=== PATIENT | male | born 1940 | race Caucasian/White ===

== ENCOUNTER 2018-04-07 15:00 | Inpatient (IN) | payer MEDICARE ==
[~2018-04-07] VITALS: Ht 170.2 cm; Wt 87.8 kg
[2018-04-07] MEDS ORDERED: ACETAMINOPHEN 325 MG TABLET PO PRN (16:00)
[2018-04-07] MEDS ORDERED: MAG HYDROX/AL HYDROX/SIMETH 30 ML ORAL.SUSP PO PRN (16:00)
[2018-04-07] MEDS ORDERED: MAGNESIUM HYDROXIDE 2,400 MG/30 ML ORAL.SUSP. PO PRN (16:00)
[2018-04-07] MEDS ORDERED: METHYL SALICYLATE/MENTHOL TOPICAL OINTMENT 29GM TUBE. TP PRN (16:00)
[2018-04-07 16:04] LABS: BILIRUBIN,URINE NEG (NEG); CLARITY,URINE CLEAR; COLOR,URINE YELLOW; GLUCOSE,URINE 100 mg/dL (NEG)
[2018-04-07 16:05] LABS: BACTERIA,URINE 0 /HPF (0-FEW); NITRITE,URINE NEG (NEG); SQUAMOUS EPITHELIAL CELL,UR OCC /LPF; UROBILINOGEN,URINE 0.2 mg/dL (0.2 mg/dL); WBC,URINE RARE /HPF (0-4)
[2018-04-07 16:10] VITALS: BP 162/86
[2018-04-07 16:17] VITALS: BP 153/96
[2018-04-07] MEDS ORDERED: BUSP5TAB PO (17:01)
[2018-04-07] MEDS ORDERED: AMIO200T2 PO (17:01)
[2018-04-07] MEDS ORDERED: ATOR20TA58 PO (17:01)
[2018-04-07] MEDS ORDERED: WARF-31 PO (17:01)
[2018-04-07] MEDS ORDERED: INSU100I13 SQ (17:01)
[2018-04-07] MEDS ORDERED: ASPI-630 PO (17:01)
[2018-04-07] MEDS ORDERED: CARV25TA2 PO (17:01)
[2018-04-07] MEDS ORDERED: GLIM4TAB2 PO (17:01)
[2018-04-07] MEDS ORDERED: OMEG-167 PO (17:01)
[2018-04-07] MEDS ORDERED: MULT-658 PO (17:01)
[2018-04-07] MEDS: CARVEDILOL 12.5 MG TABLET PO SCH (17:56)
--- NOTE | 2018-04-07 20:10 | HP ---
ADMIT DATE: 04/07/2018 PSYCHIATRIC ADMISSION HISTORY/EVALUATION This note covers elements not covered in my initial note 04/07/2018. IDENTIFYING DATA: The patient is a 77-year-old male referred to us from the Emergency Room at [facility] where he presented with his family late last night on account of increased confusion, combative behavior, threatening family attempting to jump from the car on two different occasions when the car was moving. He has been getting increasingly confused consequent to his dementia and family have attempted to manage him at home until they were unable to and brought him to the ER. He was psychotic, agitated in the ER through a ____ staff members, received Haldol IV in the ER, was totally unmanageable. CT head shows microvascular changes and ventriculomegaly. He was psychotic, unmanageable, deemed dangerous, referred for inpatient psychiatric stabilization. I talked to the nursing staff late at night and again during the day consequent to his agitation when we added Zyprexa p.r.n. 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 I have seven children. 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 He has been getting increasingly confused, combative at home, threatening his , delusional. He has had sleep and appetite changes. No clear history of bipolar disorder, suicidal or homicidal ideation other than as noted above. PAST PSYCHIATRIC HISTORY: As above. MEDICAL HISTORY: Hypertension, diabetes mellitus, hyperlipidemia, status post GA, atrial fibrillation, pacemaker in place, history of CABG, Accu-Cheks a.c. and at bedtime. ALLERGIES: PENICILLIN, DOXYCYCLINE. CODE STATUS: Full code. Diet is regular. Ambulates in wheelchair. UA was negative in the ER. CURRENT PSYCHOTROPICS: BuSpar 5 mg twice a day. FAMILY HISTORY: Noncontributory. SOCIAL HISTORY: Lives at home with his and apparently the daughter helps out as well. No physical, sexual or elder abuse history is noted. Not known to be a perpetrator. MENTAL STATUS EXAMINATION: The patient was seen individually evening of 04/07/2018. He is in his wheelchair wheeling himself up and down, bent forward, oblivious of his surroundings, restless, anxious, just not able to sit still at all. Insight, judgment, recent and remote memory, attention, concentration, fund of knowledge poor, consistent with his diagnosis. He tended to confabulate at times. ASSETS: Supportive family. Reaction to hospitalization, the patient oblivious of this. 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 Rest as above. PLAN: Admit to Geropsychiatry Unit at [facility]. I will see the patient daily individually from a psychiatric standpoint, medical followup per Dr. Colón/Dr. Paris. Start Zyprexa 2.5 mg q. 2 hours p.r.n. psychosis, agitation, max 10 mg in 24 hours. Continue BuSpar 5 mg twice a day, start Zoloft 25 mg a day for his mood and anxiety symptoms. Estimated length of stay 10-12 days. He will need fpc placement at discharge. HERIBERTO TIMMONS MD DR: BRY/kitty JOB#: [id number] / [id number]
[2018-04-07] MEDS: busPIRone 5 MG TABLET. PO SCH (20:42)
[2018-04-07] MEDS ORDERED: ATORVASTATIN CALCIUM 20 MG TABLET PO SCH (21:00)
[2018-04-08 06:06] VITALS: BP 119/66
[2018-04-08 07:46] LABS: BASO % 0 % (0-3); EOS # 0.1 x10^3/uL (0.0-0.7); EOS % 1 % (0-3); HEMATOCRIT 47.9 % (39.0-53.0); HEMOGLOBIN 16.1 g/dL (13.0-17.5); LYMPH # 1.1 x10^3/uL (1.0-4.8); LYMPH % 10 % (24-48); MEAN CORPUSCULAR HEMOGLOBIN 28 pg (25-35); MEAN CORPUSCULAR HGB CONC 34 g/dL (31-37); MEAN CORPUSCULAR VOLUME 84 fL (79-100); MONO # 1.1 x10^3/uL (0.0-1.1); MONO % 10 % (0-9); NEUT # 8.7 x10^3uL (1.8-7.7); NEUT % 79 % (31-73); PLATELET COUNT 256 x10^3/uL (140-400); RED BLOOD COUNT 5.69 x10^6/uL (4.30-5.70); RED CELL DISTRIBUTION WIDTH 14.1 % (11.5-14.5); WHITE BLOOD COUNT 11.1 x10^3/uL (4.0-11.0)
[2018-04-08] MEDS: CARVEDILOL 12.5 MG TABLET PO SCH ×2 (08:00→17:00)
[2018-04-08 08:24] LABS: ALBUMIN 3.5 g/dL (3.4-5.0); ALBUMIN/GLOBULIN RATIO 0.9 (1.0-1.7); CALCIUM 9.6 mg/dL (8.5-10.1); CREATININE 1.7 mg/dL (0.7-1.3); GFR 39.1; POTASSIUM 4.2 mmol/L (3.5-5.1); TOTAL BILIRUBIN 1.9 mg/dL (0.2-1.0); TOTAL PROTEIN 7.5 g/dL (6.4-8.2)
[2018-04-08] MEDS ORDERED: AMIODARONE HCL 200 MG TABLET PO SCH (09:00)
[2018-04-08] MEDS: OMEGA-3 FATTY ACIDS/FISH OIL 1,000 MG CAPSULE. PO SCH ×3 (09:00→21:06)
[2018-04-08] MEDS: MULTIVITAMIN I-VITE TABLET. PO SCH (09:00)
[2018-04-08] MEDS: ASPIRIN 81 MG TAB.CHEW PO SCH (10:25)
[2018-04-08] MEDS: GLIMEPIRIDE 2 MG TABLET PO SCH (10:27)
[2018-04-08] MEDS: busPIRone 5 MG TABLET. PO SCH ×2 (10:27→21:06)
[2018-04-08] MEDS: SERTRALINE 25 MG TABLET. PO SCH (10:28)
[2018-04-08] MEDS: INSULIN GLARGINE 300 UNITS/3 ML INSULN.PEN. SQ SCH ×2 (10:30→21:11)
[2018-04-08 11:23] LABS: THYROID STIM HORMONE (TSH) 3.07 uIU/mL (0.358-3.740)
[2018-04-08 13:09] LABS: T3 TOTAL 91 ng/dL (71-180); THYROXINE 9.9 ug/dL (4.5-12.0)
[2018-04-08] MEDS ORDERED: WARFARIN SODIUM 2.5 MG PO SCH (16:00)
[2018-04-08] MEDS ORDERED: WARFARIN 2.5 MG TABLET. PO ONE (16:00)
[2018-04-08 16:07] LABS: HEMOGLOBIN A1C 7.7 % (4.8-5.6)
[2018-04-08 16:33] VITALS: BP 100/55
[2018-04-08] MEDS: QUEtiapine 25 MG TABLET. PO SCH (21:08)
--- NOTE | 2018-04-08 22:40 | PDOC ---
Exam Note: Mark Note: Late entry for date of service April 07, 2018. Please also refer to the separate dictated note~for this date of service dictated separately.~Patient seen individually. Discussed the patient with Nursing staff reviewed the chart.~ Reviewed interim history and current functioning. Reviewed vital signs,~Labs/ Radiology~and current medications noted below. Continue current treatment with the changes noted in the dictated addendum note Assessment: Vital Signs: VS - Last 72 Hours, by Label Date Time Temp Pulse Resp B/P (MAP) Pulse Ox O2 Delivery O2 Flow Rate FiO2 04/08/18 16:33 97.1 78 18 100/55 (70) 95 04/08/18 10:28 81 119/66 04/08/18 06:06 97.4 81 14 119/66 (83) 93 04/07/18 17:56 71 153/96 04/07/18 16:17 97.4 71 24 153/96 (115) 96 04/07/18 16:10 97.8 71 20 162/86 (111) 95 Vital Signs Date Time Temp Pulse Resp B/P (MAP) Pulse Ox O2 Delivery O2 Flow Rate FiO2 04/08/18 16:33 97.1 78 18 100/55 (70) 95 I&O Intake and Output 04/08/18 07:00 Intake Total 270 ml Balance 270 ml Intake Oral 270 ml # Voids 4 Labs: Laboratory Tests Test 04/08/18 07:19 04/08/18 07:24 04/08/18 11:54 04/08/18 17:20 Glucose (Fingerstick) 227 mg/dL (70-99) H 252 mg/dL (70-99) H 202 mg/dL (70-99) H White Blood Count 11.1 x10^3/uL (4.0-11.0) H Red Blood Count 5.69 x10^6/uL (4.30-5.70) Hemoglobin 16.1 g/dL (13.0-17.5) Hematocrit 47.9 % (39.0-53.0) Mean Corpuscular Volume 84 fL (79-100) Mean Corpuscular Hemoglobin 28 pg (25-35) Mean Corpuscular Hemoglobin Concent 34 g/dL (31-37) Red Cell Distribution Width 14.1 % (11.5-14.5) Platelet Count 256 x10^3/uL (140-400) Neutrophils (%) (Auto) 79 % (31-73) H Lymphocytes (%) (Auto) 10 % (24-48) L Monocytes (%) (Auto) 10 % (0-9) H Eosinophils (%) (Auto) 1 % (0-3) Basophils (%) (Auto) 0 % (0-3) Neutrophils # (Auto) 8.7 x10^3uL (1.8-7.7) H Lymphocytes # (Auto) 1.1 x10^3/uL (1.0-4.8) Monocytes # (Auto) 1.1 x10^3/uL (0.0-1.1) Eosinophils # (Auto) 0.1 x10^3/uL (0.0-0.7) Basophils # (Auto) 0.0 x10^3/uL (0.0-0.2) Prothrombin Time 23.0 SEC (9.4-11.4) H Prothrombin Time INR 2.3 (0.9-1.1) H Sodium Level 134 mmol/L (136-145) L Potassium Level 4.2 mmol/L (3.5-5.1) Chloride Level 97 mmol/L (98-107) L Carbon Dioxide Level 27 mmol/L (21-32) Anion Gap 10 (6-14) Blood Urea Nitrogen 23 mg/dL (8-26) Creatinine 1.7 mg/dL (0.7-1.3) H Estimated GFR (Cockcroft-Gault) 39.1 BUN/Creatinine Ratio 14 (6-20) Glucose Level 246 mg/dL (70-99) H Hemoglobin A1c 7.7 % (4.8-5.6) H Calcium Level 9.6 mg/dL (8.5-10.1) Magnesium Level 2.0 mg/dL (1.8-2.4) Iron Level 66 ug/dL (65-175) Total Iron Binding Capacity 299 ug/dL (250-450) Iron Saturation 22 % (15-34) Total Bilirubin 1.9 mg/dL (0.2-1.0) H Aspartate Amino Transferase (AST) 143 U/L (15-37) H Alanine Aminotransferase (ALT) 83 U/L (16-63) H Alkaline Phosphatase 143 U/L (46-116) H Total Protein 7.5 g/dL (6.4-8.2) Albumin 3.5 g/dL (3.4-5.0) Albumin/Globulin Ratio 0.9 (1.0-1.7) L Triglycerides Level 84 mg/dL (0-150) Cholesterol Level 115 mg/dL (0-200) LDL Cholesterol, Calculated 43 mg/dL (0-100) VLDL Cholesterol, Calculated 16 mg/dL (0-40) Non-HDL Cholesterol Calculated 59 mg/dL (0-129) HDL Cholesterol 56 mg/dL (40-60) Cholesterol/HDL Ratio 2.0 Thyroid Stimulating Hormone (TSH) 3.070 uIU/mL (0.358-3.740) Thyroxine (T4) 9.9 ug/dL (4.5-12.0) Total Triiodothyronine (TT3) 91 ng/dL (71-180) Rapid Plasma Reagin Pending Test 04/08/18 19:58 Glucose (Fingerstick) 178 mg/dL (70-99) H Current Medications: Meds: Current Medications Acetaminophen (Tylenol) 650 mg PRN Q6HRS PRN PO PAIN / TEMP; Start 04/07/18 at 16:00; Stop 04/08/18 at 19:14; Status DC Multi-Ingredient Ointment (Analgesic [place]) 1 markell PRN QID PRN TP MUSCLE PAIN; Start 04/07/18 at 16:00 Al Hydroxide/Mg Hydroxide (Mylanta Plus Xs) 15 ml PRN AFTMEALHC PRN PO DYSPEPSIA; Start 04/07/18 at 16:00 Magnesium Hydroxide (Milk Of Magnesia) 2,400 mg PRN QHS PRN PO CONSTIPATION; Start 04/07/18 at 16:00 Atorvastatin Calcium (Lipitor) 20 mg QHS PO Last administered on 04/07/18at 20: 42; Start 04/07/18 at 21:00; Stop 04/08/18 at 19:14; Status DC Insulin Glargine (Lantus) 10 units DAILY SQ Last administered on 04/08/18at 21: 11; Start 04/08/18 at 09:00 Amiodarone HCl (Cordarone) 200 mg DAILY PO Last administered on 04/08/18at 10:28 ; Start 04/08/18 at 09:00; Stop 04/08/18 at 19:14; Status DC Aspirin (Children'S Aspirin) 81 mg DAILYWBKFT PO Last administered on 10:25; Start 04/08/18 at 08:00 Buspirone HCl (Buspar) 5 mg BID PO Last administered on 04/08/18 21:06; Start 04/07/18 at 21:00 Carvedilol (Coreg) 25 mg BIDWMEALS PO Last administered on 04/07/18at 17:56; Start 04/07/18 at 17:00 Glimepiride (Amaryl) 4 mg DAILY PO Last administered on 04/08/18 10:27; Start 04/08/18 at 09:00 Multivitamins/ Minerals (I-Julianne) 1 tab DAILY PO ; Start 04/08/18 at 09:00 Fish Oil (Fish Oil) 1,000 mg QHS PO Last administered on 04/08/18 21:06; Start 04/08/18 at 09:00 Non-Formulary Medication (Warfarin Sodium ) 2.5 mg DAILY16 PO ; Start 04/08/18 at 16:00; Stop 04/08/18 at 16:00; Status DC Warfarin Sodium (Coumadin Per Pharmacy) 1 each DAILY MC Last administered on 12:23; Start 04/07/18 at 17:15 Olanzapine (ZyPREXA ZYDIS) 2.5 mg PRN Q2HR PRN PO PSYCHOSIS Last administered on 04/08/18 11:39; Start 04/07/18 at 19:30 Sertraline HCl (Zoloft) 25 mg DAILY PO Last administered on 04/08/18at 10:28; Start 04/08/18 at 09:00 Warfarin Sodium (Coumadin - No Dose Today) 1 each 1X WARF ONCE MC ; Start 04/07 at 16:00; Stop 04/07/18 at 20:41; Status DC Warfarin Sodium (Coumadin) 2.5 mg 1X WARF ONCE PO Last administered on at 17:14; Start 04/08/18 at 16:00; Stop 04/08/18 at 16:01; Status DC Quetiapine Fumarate (SEROquel) 12.5 mg 0900,1300,1700 PO Last administered on at 21:08; Start 04/08/18 at 19:30 Active Scripts Active Reported Lantus Solostar (Insulin Glargine,Hum.rec.anlog) 100 Unit/1 Ml Insuln.pen 10 Unit SQ DAILY Buspirone Hcl 5 Mg Tablet 5 Mg PO BID Fish Oil 1,200 mg Softgel ([place]-3S/Dha/Epa/Fish Oil) 1 Each Capsule.dr 1 Each PO QHS Warfarin Sodium 5 Mg Tablet 2.5 Mg PO DAILY16 Atorvastatin Calcium 20 Mg Tablet 20 Mg PO QHS Amiodarone Hcl 200 Mg Tablet 200 Mg PO DAILY Carvedilol 25 Mg Tablet 25 Mg PO BID Centrum Silver Tablet (Multivits-Min/Fa/Lycopene/Lut) 1 Each Tablet 1 Each PO DAILY PRN Aspirin 81 Mg Tab.chew 81 Mg PO DAILY Glimepiride 4 Mg Tablet 4 Mg PO DAILY I have reviewed the current psychotropics carefully including drug interactions. Risk benefit ratio favors no change other than as noted in my dictated progress note. HERIBERTO TIMMONS MD April 08, 2018 22:40
--- NOTE | 2018-04-08 23:11 | PDOC ---
Exam Note: Mark Note: Please also refer to the separate dictated note~for this date of service dictated separately.~Patient seen individually. Discussed the patient with Nursing staff reviewed the chart.~Reviewed interim history and current functioning. Reviewed vital signs,~Labs/ Radiology~and current medications noted below. Continue current treatment with the changes noted in the dictated addendum note Assessment: Vital Signs: Vital Signs Date Time Temp Pulse Resp B/P (MAP) Pulse Ox O2 Delivery O2 Flow Rate FiO2 04/08/18 16:33 97.1 78 18 100/55 (70) 95 I&O Intake and Output 04/08/18 07:00 Intake Total 270 ml Balance 270 ml Intake Oral 270 ml # Voids 4 Labs: Laboratory Tests Test 04/08/18 07:19 04/08/18 07:24 04/08/18 11:54 04/08/18 17:20 Glucose (Fingerstick) 227 mg/dL (70-99) H 252 mg/dL (70-99) H 202 mg/dL (70-99) H White Blood Count 11.1 x10^3/uL (4.0-11.0) H Red Blood Count 5.69 x10^6/uL (4.30-5.70) Hemoglobin 16.1 g/dL (13.0-17.5) Hematocrit 47.9 % (39.0-53.0) Mean Corpuscular Volume 84 fL (79-100) Mean Corpuscular Hemoglobin 28 pg (25-35) Mean Corpuscular Hemoglobin Concent 34 g/dL (31-37) Red Cell Distribution Width 14.1 % (11.5-14.5) Platelet Count 256 x10^3/uL (140-400) Neutrophils (%) (Auto) 79 % (31-73) H Lymphocytes (%) (Auto) 10 % (24-48) L Monocytes (%) (Auto) 10 % (0-9) H Eosinophils (%) (Auto) 1 % (0-3) Basophils (%) (Auto) 0 % (0-3) Neutrophils # (Auto) 8.7 x10^3uL (1.8-7.7) H Lymphocytes # (Auto) 1.1 x10^3/uL (1.0-4.8) Monocytes # (Auto) 1.1 x10^3/uL (0.0-1.1) Eosinophils # (Auto) 0.1 x10^3/uL (0.0-0.7) Basophils # (Auto) 0.0 x10^3/uL (0.0-0.2) Prothrombin Time 23.0 SEC (9.4-11.4) H Prothrombin Time INR 2.3 (0.9-1.1) H Sodium Level 134 mmol/L (136-145) L Potassium Level 4.2 mmol/L (3.5-5.1) Chloride Level 97 mmol/L (98-107) L Carbon Dioxide Level 27 mmol/L (21-32) Anion Gap 10 (6-14) Blood Urea Nitrogen 23 mg/dL (8-26) Creatinine 1.7 mg/dL (0.7-1.3) H Estimated GFR (Cockcroft-Gault) 39.1 BUN/Creatinine Ratio 14 (6-20) Glucose Level 246 mg/dL (70-99) H Hemoglobin A1c 7.7 % (4.8-5.6) H Calcium Level 9.6 mg/dL (8.5-10.1) Magnesium Level 2.0 mg/dL (1.8-2.4) Iron Level 66 ug/dL (65-175) Total Iron Binding Capacity 299 ug/dL (250-450) Iron Saturation 22 % (15-34) Total Bilirubin 1.9 mg/dL (0.2-1.0) H Aspartate Amino Transferase (AST) 143 U/L (15-37) H Alanine Aminotransferase (ALT) 83 U/L (16-63) H Alkaline Phosphatase 143 U/L (46-116) H Total Protein 7.5 g/dL (6.4-8.2) Albumin 3.5 g/dL (3.4-5.0) Albumin/Globulin Ratio 0.9 (1.0-1.7) L Triglycerides Level 84 mg/dL (0-150) Cholesterol Level 115 mg/dL (0-200) LDL Cholesterol, Calculated 43 mg/dL (0-100) VLDL Cholesterol, Calculated 16 mg/dL (0-40) Non-HDL Cholesterol Calculated 59 mg/dL (0-129) HDL Cholesterol 56 mg/dL (40-60) Cholesterol/HDL Ratio 2.0 Thyroid Stimulating Hormone (TSH) 3.070 uIU/mL (0.358-3.740) Thyroxine (T4) 9.9 ug/dL (4.5-12.0) Total Triiodothyronine (TT3) 91 ng/dL (71-180) Rapid Plasma Reagin Pending Test 04/08/18 19:58 Glucose (Fingerstick) 178 mg/dL (70-99) H Current Medications: Meds: Current Medications Acetaminophen (Tylenol) 650 mg PRN Q6HRS PRN PO PAIN / TEMP; Start 04/07/18 at 16:00; Stop 04/08/18 at 19:14; Status DC Multi-Ingredient Ointment (Analgesic [place]) 1 markell PRN QID PRN TP MUSCLE PAIN; Start 04/07/18 at 16:00 Al Hydroxide/Mg Hydroxide (Mylanta Plus Xs) 15 ml PRN AFTMEALHC PRN PO DYSPEPSIA; Start 04/07/18 at 16:00 Magnesium Hydroxide (Milk Of Magnesia) 2,400 mg PRN QHS PRN PO CONSTIPATION; Start 04/07/18 at 16:00 Atorvastatin Calcium (Lipitor) 20 mg QHS PO Last administered on 04/07/18at 20: 42; Start 04/07/18 at 21:00; Stop 04/08/18 at 19:14; Status DC Insulin Glargine (Lantus) 10 units DAILY SQ Last administered on 04/08/18at 21: 11; Start 04/08/18 at 09:00 Amiodarone HCl (Cordarone) 200 mg DAILY PO Last administered on 04/08/18at 10:28 ; Start 04/08/18 at 09:00; Stop 04/08/18 at 19:14; Status DC Aspirin (Children'S Aspirin) 81 mg DAILYWBKFT PO Last administered on at 10:25; Start 04/08/18 at 08:00 Buspirone HCl (Buspar) 5 mg BID PO Last administered on 04/08/18at 21:06; Start 04/07/18 at 21:00 Carvedilol (Coreg) 25 mg BIDWMEALS PO Last administered on 04/07/18at 17:56; Start 04/07/18 at 17:00 Glimepiride (Amaryl) 4 mg DAILY PO Last administered on 04/08/18at 10:27; Start 04/08/18 at 09:00 Multivitamins/ Minerals (I-Julianne) 1 tab DAILY PO ; Start 04/08/18 at 09:00 Fish Oil (Fish Oil) 1,000 mg QHS PO Last administered on 04/08/18at 21:06; Start 04/08/18 at 09:00 Non-Formulary Medication (Warfarin Sodium ) 2.5 mg DAILY16 PO ; Start 04/08/18 at 16:00; Stop 04/08/18 at 16:00; Status DC Warfarin Sodium (Coumadin Per Pharmacy) 1 each DAILY MC Last administered on at 12:23; Start 04/07/18 at 17:15 Olanzapine (ZyPREXA ZYDIS) 2.5 mg PRN Q2HR PRN PO PSYCHOSIS Last administered on 04/08/18at 11:39; Start 04/07/18 at 19:30 Sertraline HCl (Zoloft) 25 mg DAILY PO Last administered on 04/08/18 10:28; Start 04/08/18 at 09:00 Warfarin Sodium (Coumadin - No Dose Today) 1 each 1X WARF ONCE MC ; Start 04/07 at 16:00; Stop 04/07/18 at 20:41; Status DC Warfarin Sodium (Coumadin) 2.5 mg 1X WARF ONCE PO Last administered on at 17:14; Start 04/08/18 at 16:00; Stop 04/08/18 at 16:01; Status DC Quetiapine Fumarate (SEROquel) 12.5 mg 0900,1300,1700 PO Last administered on at 21:08; Start 04/08/18 at 19:30 Active Scripts Active Reported Lantus Solostar (Insulin Glargine,Hum.rec.anlog) 100 Unit/1 Ml Insuln.pen 10 Unit SQ DAILY Buspirone Hcl 5 Mg Tablet 5 Mg PO BID Fish Oil 1,200 mg Softgel ([place]-3S/Dha/Epa/Fish Oil) 1 Each Capsule. 1 Each PO QHS Warfarin Sodium 5 Mg Tablet 2.5 Mg PO DAILY16 Atorvastatin Calcium 20 Mg Tablet 20 Mg PO QHS Amiodarone Hcl 200 Mg Tablet 200 Mg PO DAILY Carvedilol 25 Mg Tablet 25 Mg PO BID Centrum Silver Tablet (Multivits-Min/Fa/Lycopene/Lut) 1 Each Tablet 1 Each PO DAILY PRN Aspirin 81 Mg Tab.chew 81 Mg PO DAILY Glimepiride 4 Mg Tablet 4 Mg PO DAILY I have reviewed the current psychotropics carefully including drug interactions. Risk benefit ratio favors no change other than as noted in my dictated progress note. Diagnosis: Problems: (1) Anxiety disorder (2) Dementia in Alzheimer's disease with delusions (3) Dementia in Alzheimer's disease with depression (4) Dementia, vascular, with delusions (5) Dementia, vascular, with depression (6) Impulse control disorder HERIBERTO TIMMONS MD April 08, 2018 23:11
[2018-04-09 05:58] VITALS: BP 131/71
[2018-04-09] MEDS: ASPIRIN 81 MG TAB.CHEW PO SCH (08:00)
[2018-04-09] MEDS: CARVEDILOL 12.5 MG TABLET PO SCH (08:00)
[2018-04-09] MEDS: SERTRALINE 25 MG TABLET. PO SCH (09:00)
[2018-04-09] MEDS: QUEtiapine 25 MG TABLET. PO SCH ×3 (09:00→17:00)
[2018-04-09] MEDS: busPIRone 5 MG TABLET. PO SCH ×2 (09:00→20:59)
[2018-04-09] MEDS: MULTIVITAMIN I-VITE TABLET. PO SCH (09:00)
[2018-04-09] MEDS: GLIMEPIRIDE 2 MG TABLET PO SCH (09:00)
[2018-04-09 15:37] VITALS: BP 115/65
[2018-04-09] MEDS ORDERED: WARFARIN 2 MG TABLET. PO ONE (16:00)
[2018-04-09] MEDS ORDERED: BISACODYL 10 MG SUPP.RECT PR PRN (18:00)
--- NOTE | 2018-04-09 18:58 | CONS ---
DATE OF CONSULTATION: 04/08/2018 REASON FOR CONSULTATION: Medical management. HISTORY OF PRESENT ILLNESS: The patient is a 77-year-old male patient who apparently was referred from [facility] Emergency Room with increased confusion, combative, threatening , attempted to jump from the car twice. All this on a background of impulse control disorder and was admitted for inpatient psychiatric stabilization. PAST MEDICAL HISTORY: Significant for dementia, hypertension, diabetes mellitus, hyperlipidemia, myocardial infarction, atrial fibrillation, pacemaker, and coronary artery bypass graft. PAST SURGICAL HISTORY: Significant for revascularization of the right lower extremity. He has also coronary artery bypass graft surgery and permanent pacemaker placement. ALLERGIES: He is allergic to PENICILLIN and DOXYCYCLINE. CODE STATUS: Full code. MEDICATIONS: He is currently on following medications: He is currently on warfarin 2.5 mg daily, amiodarone 200 mg once a day, atorvastatin calcium 20 mg at bedtime, omega-3 fatty acid 1200 mg at bedtime, carvedilol 25 mg b.i.d., aspirin 81 mg once a day, buspirone 5 mg p.o. b.i.d., Lantus 10 units at bedtime, glimepiride 4 mg p.o. daily, and multivitamin 1 tablet once a day. REVIEW OF SYSTEMS: Unobtainable. PHYSICAL EXAMINATION: GENERAL: On examining him, he was lying flat on the floor, in no apparent respiratory distress, somewhat pale, but no jaundice, cyanosis, or thyromegaly. No jugular venous distension. No limb edema. VITAL SIGNS: His heart rate was 78, blood pressure was 100/55, temperature was 97.1, respiratory rate was 18, and oxygen saturation was 95%. HEAD, EYES, EARS, NOSE, AND THROAT: Normocephalic, atraumatic. NECK: Supple. HEART: Showed normal first and second sounds. No gallop, rub or murmur. CHEST: Clear to auscultation. No crepitation or rhonchi. ABDOMEN: Distended, soft, and nontender. No guarding or rigidity. No organomegaly. Hernial orifice intact. Bowel sounds normal. NEUROLOGIC: He was very confused, agitated, and unable even to turn to get in his back. It took about three people to get him up from the floor. LABORATORY DATA: Showed a prothrombin time 23. INR of 2.3. His white cell count was 11,100, hemoglobin 16, hematocrit 48, MCV 84, and platelet count 256,000. His chemistry showed a serum sodium 134, potassium 4.2, chloride 97, bicarbonate 27, anion gap of 10, BUN 23, creatinine 1.7, estimated GFR was 39 mL per minute. His glucose was 246, calcium was 9.6. Total bilirubin 1.9. AST, ALT, alkaline phosphatase are elevated. Total protein 7.3, albumin 3.5. His total cholesterol with triglycerides 84, total cholesterol and 15, LDL was 43, VLDL was 16, and HDL cholesterol was 56, and the ratio was 2. His TSH was 3.07. Urinalysis was essentially unremarkable and RPR was pending. ASSESSMENT AND PLAN: In summary, this is a 77-year-old male patient who was referred from the [facility] Emergency Room with increased confusion, combativeness, threatening , attempted to jump from the car twice. All this in a background of impulse control disorder. He has multiple medical problems including hypertension, type 2 diabetes, hyperlipidemia, myocardial infarction, and atrial fibrillation. His lab work showed that he has markedly deranged liver enzymes and he was jaundiced. He is on amiodarone that might be the culprit for his deranged liver enzyme as well as I will obviously discontinue the atorvastatin. With this, his unsteady gait, I do not think anticoagulation is the right thing to do for him. I will discontinue his atenolol, atorvastatin, and also amiodarone at least for the time being at least temporarily. I will definitely stop also the Coumadin as a high risk for bleeding. MISHEL CARRILLO MD DR: MAVERICK/kitty JOB#: [id number] / [id number]
--- NOTE | 2018-04-09 20:22 | EKG ---
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
--- NOTE | 2018-04-09 20:43 | PDOC ---
Exam Note: Mark Note: Please also refer to the separate dictated note~for this date of service dictated separately.~Patient seen individually. Discussed the patient with Nursing staff reviewed the chart.~Reviewed interim history and current functioning. Reviewed vital signs,~Labs/ Radiology~and current medications noted below. Continue current treatment with the changes noted in the dictated addendum note Assessment: Vital Signs: Vital Signs Date Time Temp Pulse Resp B/P (MAP) Pulse Ox O2 Delivery O2 Flow Rate FiO2 04/09/18 15:37 97.7 77 26 115/65 (82) 96 I&O Intake and Output 04/09/18 07:00 Intake Total 120 ml Balance 120 ml Intake Oral 120 ml # Voids 2 Labs: Laboratory Tests Test 04/09/18 07:35 04/09/18 07:57 04/09/18 11:40 04/09/18 16:36 Glucose (Fingerstick) 207 mg/dL (70-99) H 217 mg/dL (70-99) H 250 mg/dL (70-99) H Prothrombin Time 27.2 SEC (9.4-11.4) H Prothrombin Time INR 2.7 (0.9-1.1) H Test 04/09/18 19:11 Glucose (Fingerstick) 275 mg/dL (70-99) H Current Medications: Meds: Current Medications Acetaminophen (Tylenol) 650 mg PRN Q6HRS PRN PO PAIN / TEMP; Start 04/07/18 at 16:00; Stop 04/08/18 at 19:14; Status DC Multi-Ingredient Ointment (Analgesic [place]) 1 markell PRN QID PRN TP MUSCLE PAIN; Start 04/07/18 at 16:00 Al Hydroxide/Mg Hydroxide (Mylanta Plus Xs) 15 ml PRN AFTMEALHC PRN PO DYSPEPSIA; Start 04/07/18 at 16:00 Magnesium Hydroxide (Milk Of Magnesia) 2,400 mg PRN QHS PRN PO CONSTIPATION; Start 04/07/18 at 16:00 Atorvastatin Calcium (Lipitor) 20 mg QHS PO Last administered on 04/07/18at 20: 42; Start 04/07/18 at 21:00; Stop 04/08/18 at 19:14; Status DC Insulin Glargine (Lantus) 10 units DAILY SQ Last administered on 5/19/18at 21: 11; Start 04/08/18 at 09:00 Amiodarone HCl (Cordarone) 200 mg DAILY PO Last administered on 04/08/18 10:28 ; Start 04/08/18 at 09:00; Stop 04/08/18 at 19:14; Status DC Aspirin (Children'S Aspirin) 81 mg DAILYWBKFT PO Last administered on 10:25; Start 04/08/18 at 08:00 Buspirone HCl (Buspar) 5 mg BID PO Last administered on 04/08/18 21:06; Start 04/07/18 at 21:00 Carvedilol (Coreg) 25 mg BIDWMEALS PO Last administered on 04/07/18 17:56; Start 04/07/18 at 17:00; Stop 04/09/18 at 18:01; Status DC Glimepiride (Amaryl) 4 mg DAILY PO Last administered on 04/08/18 10:27; Start 04/08/18 at 09:00 Multivitamins/ Minerals (I-Julianne) 1 tab DAILY PO ; Start 04/08/18 at 09:00 Fish Oil (Fish Oil) 1,000 mg QHS PO ; Start 04/08/18 at 09:00 Non-Formulary Medication (Warfarin Sodium ) 2.5 mg DAILY16 PO ; Start 04/08/18 at 16:00; Stop 04/08/18 at 16:00; Status DC Warfarin Sodium (Coumadin Per Pharmacy) 1 each DAILY MC Last administered on 13:27; Start 04/07/18 at 17:15 Olanzapine (ZyPREXA ZYDIS) 2.5 mg PRN Q2HR PRN PO PSYCHOSIS Last administered on 04/08/18 11:39; Start 04/07/18 at 19:30 Sertraline HCl (Zoloft) 25 mg DAILY PO Last administered on 04/08/18 10:28; Start 04/08/18 at 09:00 Warfarin Sodium (Coumadin - No Dose Today) 1 each 1X WARF ONCE MC ; Start 04/07 at 16:00; Stop 04/07/18 at 20:41; Status DC Warfarin Sodium (Coumadin) 2.5 mg 1X WARF ONCE PO Last administered on 5/19/ 18at 17:14; Start 04/08/18 at 16:00; Stop 04/08/18 at 16:01; Status DC Quetiapine Fumarate (SEROquel) 12.5 mg 0900,1300,1700 PO Last administered on at 21:08; Start 04/08/18 at 19:30 Warfarin Sodium (Coumadin) 2 mg 1X WARF ONCE PO ; Start 04/09/18 at 16:00; Stop 04/09/18 at 16:02; Status DC Carvedilol (Coreg) 12.5 mg BIDWMEALS PO ; Start 04/10/18 at 08:00 Bisacodyl (Dulcolax Supp) 10 mg PRN DAILY PRN [place] CONSTIPATION; Start 04/09/18 at 18:00 Active Scripts Active Reported Lantus Solostar (Insulin Glargine,Hum.rec.anlog) 100 Unit/1 Ml Insuln.pen 10 Unit SQ DAILY Buspirone Hcl 5 Mg Tablet 5 Mg PO BID Fish Oil 1,200 mg Softgel ([place]-3S/Dha/Epa/Fish Oil) 1 Each Capsule.dr 1 Each PO QHS Warfarin Sodium 5 Mg Tablet 2.5 Mg PO DAILY16 Atorvastatin Calcium 20 Mg Tablet 20 Mg PO QHS Amiodarone Hcl 200 Mg Tablet 200 Mg PO DAILY Carvedilol 25 Mg Tablet 25 Mg PO BID Centrum Silver Tablet (Multivits-Min/Fa/Lycopene/Lut) 1 Each Tablet 1 Each PO DAILY PRN Aspirin 81 Mg Tab.chew 81 Mg PO DAILY Glimepiride 4 Mg Tablet 4 Mg PO DAILY I have reviewed the current psychotropics carefully including drug interactions. Risk benefit ratio favors no change other than as noted in my dictated progress note. Diagnosis: Problems: (1) Anxiety disorder (2) Dementia in Alzheimer's disease with delusions (3) Dementia in Alzheimer's disease with depression (4) Dementia, vascular, with delusions (5) Dementia, vascular, with depression (6) Impulse control disorder HERIBERTO TIMMONS MD April 09, 2018 20:43
[2018-04-09] MEDS: OMEGA-3 FATTY ACIDS/FISH OIL 1,000 MG CAPSULE. PO SCH (20:59)
[2018-04-10 06:08] VITALS: BP 139/72
[2018-04-10 07:57] LABS: BASO # 0.1 x10^3/uL (0.0-0.2); BASO % 0 % (0-3); EOS % 0 % (0-3); HEMATOCRIT 44.5 % (39.0-53.0); HEMOGLOBIN 15.2 g/dL (13.0-17.5); LYMPH # 1.1 x10^3/uL (1.0-4.8); LYMPH % 5 % (24-48); MEAN CORPUSCULAR HEMOGLOBIN 29 pg (25-35); MEAN CORPUSCULAR HGB CONC 34 g/dL (31-37); MEAN CORPUSCULAR VOLUME 85 fL (79-100); MONO # 1.8 x10^3/uL (0.0-1.1); MONO % 8 % (0-9); NEUT # 18.6 x10^3uL (1.8-7.7); NEUT % 86 % (31-73); PLATELET COUNT 232 x10^3/uL (140-400); RED BLOOD COUNT 5.26 x10^6/uL (4.30-5.70); RED CELL DISTRIBUTION WIDTH 14.5 % (11.5-14.5); WHITE BLOOD COUNT 21.6 x10^3/uL (4.0-11.0)
[2018-04-10] MEDS ORDERED: CARVEDILOL 12.5 MG TABLET PO SCH (08:00)
[2018-04-10 08:11] LABS: ALBUMIN 2.8 g/dL (3.4-5.0); ALBUMIN/GLOBULIN RATIO 0.7 (1.0-1.7); CALCIUM 9.1 mg/dL (8.5-10.1); CREATININE 2.5 mg/dL (0.7-1.3); POTASSIUM 4.2 mmol/L (3.5-5.1); TOTAL BILIRUBIN 1.8 mg/dL (0.2-1.0); TOTAL PROTEIN 6.7 g/dL (6.4-8.2)
[2018-04-10] MEDS ORDERED: MULT-99 PO (09:02)
[2018-04-10] MEDS ORDERED: BISA10SU2 RC (09:02)
[2018-04-10] MEDS ORDERED: MAGN2400 PO (09:03)
[2018-04-10] MEDS ORDERED: MAG30ORA PO (09:03)
[2018-04-10] MEDS ORDERED: METH29OI TP (09:04)
[2018-04-10] MEDS ORDERED: OLAN5TAB5 PO (09:05)
[2018-04-10] MEDS ORDERED: SERT25TA PO (09:06)
[2018-04-10] MEDS ORDERED: IV NORMAL SALINE 1,000ML 1,000 ML IV ONE (10:00)
--- NOTE | 2018-04-10 10:01 | PN ---
DATE: 04/08/2018 PSYCHIATRIC PROGRESS NOTE This late entry 04/08/2018 covers elements not covered in my initial note of 04/08/2018. SUBJECTIVE: Met with the patient in the evening. The patient slept 3-1/2 hours, has been restless, yelling for his , cursing at staff, trying to get out of his chair. Family is requesting a Neurology consult. We will request with Dr. Marin. REVIEW OF SYSTEMS: Ambulation impaired, in wheelchair. No CV, , pulmonary, eye, ENT system symptoms on review. Reliability is poor. MENTAL STATUS EXAM: Oriented to himself. Insight, judgment, recent remote memory, attention, concentration, fund of knowledge is poor, consistent with his diagnoses mentioned in my initial note. IMPRESSION: Major neurocognitive disorder, Alzheimer, vascular with depression, delusion, behavioral disturbance. PLAN: Start Seroquel 12.5 mg at 9:00 a.m., 1:00 p.m., 5:00 p.m. I discussed with the pharmacists regarding drug interaction with Cordarone with QTC prolongation. We will check EKG for QTC baseline and then 3 days after, he started the Seroquel. Dosage of Seroquel is rather low. He should tolerate it, but we will monitor carefully. Continue rest unchanged, BuSpar, Zoloft, along with Zyprexa p.r.n. MAN Hill TIMMONS MD DR: BRY/kitty JOB#: [id number] / [id number]
[2018-04-10 10:09] LABS: BACTERIA,URINE MANY /HPF (0-FEW); BILIRUBIN,URINE NEG (NEG); CLARITY,URINE CLOUDY; COLOR,URINE AMBER; GLUCOSE,URINE 100 mg/dL (NEG); NITRITE,URINE NEG (NEG); SQUAMOUS EPITHELIAL CELL,UR FEW /LPF; UROBILINOGEN,URINE 0.2 mg/dL (0.2 mg/dL); WBC,URINE 20-40 /HPF (0-4)
[2018-04-10 10:10] LABS: GRANULAR CASTS,URINE FEW /HPF; HYALINE CASTS, URINE MANY /HPF
[2018-04-10 10:17] LABS: % BANDS 3 % (0-9); % LYMPHS 6 % (24-48); % MONOS 7 % (0-10); % SEGS 84 % (35-66); PLT ESTIMATE ADEQUATE (ADEQUATE); TOXIC GRANULATION SLIGHT
--- NOTE | 2018-04-10 10:17 | RAD ---
Single view of the chest. 04/10/2018 9:58 AM Indication: LEUKOCYTOSIS Comparison: None Findings: Low lung volumes noted. This augments the cardiomediastinal silhouette and pulmonary vasculature. Multi pacemaker/ICD device from left subclavian approach noted. Prior median sternotomy noted. No pneumothorax or definitive pleural effusion is seen. No focal infiltrate is defined. No acute osseous changes are identified. IMPRESSION: Low lung volumes without other radiographic evidence of acute cardiopulmonary process Electronically signed by: Yaron Richards MD (04/10/2018 10:14 AM) [id number]
[2018-04-10] MEDS ORDERED: MEROPENEM 500 MG in IV NORMAL SALINE 50ML 50 ML IV SCH (14:00)
--- NOTE | 2018-04-10 14:11 | PN ---
DATE: 04/09/2018 PSYCHIATRIC PROGRESS NOTE This note covers elements not covered in my initial note 04/09/2018. SUBJECTIVE: I met with the patient in the evening. The patient has been somewhat withdrawn, obtunded, bedtime meds were held last night and meds held during the day as well. Dr. Colón has stopped the Cordarone. EKG: QTc is 470 with possible anteroseptal damage and inferior infarct. We will have a Cardiology consult to address this. REVIEW OF SYSTEMS: Ambulation impaired, in wheelchair. No CV, , pulmonary, eye, ENT system symptoms on review. MENTAL STATUS EXAM: Oriented to himself. Insight, judgment, recent and remote memory, attention, concentration, fund of knowledge poor, consistent with his diagnosis. IMPRESSION: Major neurocognitive disorder, Alzheimer, vascular with delusion, depression, behavioral disturbance. LABORATORIES: Abnormal EKG. PLAN: Continue BuSpar 5 mg b.i.d., Zoloft 25 mg a day, Seroquel 12.5 mg 3 times a day will be stopped for now. Cardiology consult is noted. Continue Zyprexa p.r.n. Swallow study is being done as well. Labs to be checked in the morning. He is on thickened liquids. HERIBERTO TIMMONS MD DR: BRY/kitty JOB#: [id number] / [id number]
[2018-04-10] MEDS ORDERED: WARFARIN 1 MG TABLET. PO ONE (16:00)
--- NOTE | 2018-04-11 18:53 | PDOC ---
Exam Note: Mark Note: Please also refer to the separate dictated note~for this date of service dictated separately.~Patient seen individually. Discussed the patient with Nursing staff reviewed the chart.~Reviewed interim history and current functioning. Reviewed vital signs,~Labs/ Radiology~and current medications noted below. Continue current treatment with the changes noted in the dictated addendum note. This is a late entry for 04/10/18 Assessment: Vital Signs: Vital Signs Date Time Temp Pulse Resp B/P (MAP) Pulse Ox O2 Delivery O2 Flow Rate FiO2 04/10/18 06:08 98.6 84 22 139/72 (94) 95 I&O Intake and Output 04/11/18 07:00 Intake Total 360 ml Balance 360 ml Intake Oral 360 ml Current Medications: Meds: Current Medications Acetaminophen (Tylenol) 650 mg PRN Q6HRS PRN PO PAIN / TEMP; Start 04/07/18 at 16:00; Stop 04/08/18 at 19:14; Status DC Multi-Ingredient Ointment (Analgesic [place]) 1 markell PRN QID PRN TP MUSCLE PAIN; Start 04/07/18 at 16:00; Stop 04/10/18 at 10:12; Status DC Al Hydroxide/Mg Hydroxide (Mylanta Plus Xs) 15 ml PRN AFTMEALHC PRN PO DYSPEPSIA; Start 04/07/18 at 16:00; Stop 04/10/18 at 10:12; Status DC Magnesium Hydroxide (Milk Of Magnesia) 2,400 mg PRN QHS PRN PO CONSTIPATION; Start 04/07/18 at 16:00; Stop 04/10/18 at 10:12; Status DC Atorvastatin Calcium (Lipitor) 20 mg QHS PO Last administered on 04/07/18at 20: 42; Start 04/07/18 at 21:00; Stop 04/08/18 at 19:14; Status DC Insulin Glargine (Lantus) 10 units DAILY SQ Last administered on 04/08/18at 21: 11; Start 04/08/18 at 09:00; Stop 04/10/18 at 10:12; Status DC Amiodarone HCl (Cordarone) 200 mg DAILY PO Last administered on 04/08/18at 10:28 ; Start 04/08/18 at 09:00; Stop 04/08/18 at 19:14; Status DC Aspirin (Children'S Aspirin) 81 mg DAILYWBKFT PO Last administered on at 10:25; Start 04/08/18 at 08:00; Stop 04/10/18 at 10:12; Status DC Buspirone HCl (Buspar) 5 mg BID PO Last administered on 04/09/18at 20:59; Start 04/07/18 at 21:00; Stop 04/10/18 at 10:12; Status DC Carvedilol (Coreg) 25 mg BIDWMEALS PO Last administered on 04/07/18at 17:56; Start 04/07/18 at 17:00; Stop 04/09/18 at 18:01; Status DC Glimepiride (Amaryl) 4 mg DAILY PO Last administered on 04/08/18at 10:27; Start 04/08/18 at 09:00; Stop 04/10/18 at 10:12; Status DC Multivitamins/ Minerals (I-Julianne) 1 tab DAILY PO ; Start 04/08/18 at 09:00; Stop 04/10/18 at 10:12; Status DC Fish Oil (Fish Oil) 1,000 mg QHS PO ; Start 04/08/18 at 09:00; Stop 04/10/18 at 10:12; Status DC Non-Formulary Medication (Warfarin Sodium ) 2.5 mg DAILY16 PO ; Start 04/08/18 at 16:00; Stop 04/08/18 at 16:00; Status DC Warfarin Sodium (Coumadin Per Pharmacy) 1 each DAILY MC Last administered on at 09:39; Start 04/07/18 at 17:15; Stop 04/10/18 at 10:12; Status DC Olanzapine (ZyPREXA ZYDIS) 2.5 mg PRN Q2HR PRN PO PSYCHOSIS Last administered on 04/08/18at 11:39; Start 04/07/18 at 19:30; Stop 04/10/18 at 10:12; Status DC Sertraline HCl (Zoloft) 25 mg DAILY PO Last administered on 04/08/18at 10:28; Start 04/08/18 at 09:00; Stop 04/10/18 at 10:12; Status DC Warfarin Sodium (Coumadin - No Dose Today) 1 each 1X WARF ONCE MC ; Start 04/07 at 16:00; Stop 04/07/18 at 20:41; Status DC Warfarin Sodium (Coumadin) 2.5 mg 1X WARF ONCE PO Last administered on at 17:14; Start 04/08/18 at 16:00; Stop 04/08/18 at 16:01; Status DC Quetiapine Fumarate (SEROquel) 12.5 mg 0900,1300,1700 PO Last administered on at 21:08; Start 04/08/18 at 19:30; Stop 04/09/18 at 20:47; Status DC Warfarin Sodium (Coumadin) 2 mg 1X WARF ONCE PO ; Start 04/09/18 at 16:00; Stop 04/09/18 at 16:02; Status DC Carvedilol (Coreg) 12.5 mg BIDWMEALS PO ; Start 04/10/18 at 08:00; Stop at 10:12; Status DC Bisacodyl (Dulcolax Supp) 10 mg PRN DAILY PRN [place] CONSTIPATION; Start 04/09/18 at 18:00; Stop 04/10/18 at 10:12; Status DC Sodium Chloride 1,000 ml @ 1,000 mls/hr 1X ONCE IV ; Start 04/10/18 at 10:00; Stop 04/10/18 at 10:12; Status DC Warfarin Sodium (Coumadin) 1 mg 1X WARF ONCE PO ; Start 04/10/18 at 16:00; Stop 04/10/18 at 16:00; Status DC Meropenem 500 mg/ Sodium Chloride 50 ml @ 100 mls/hr Q8HRS IV ; Start 04/10/18 at 14:00; Stop 04/10/18 at 14:00; Status DC Active Scripts Active Reported Zoloft (Sertraline Hcl) 25 Mg Tablet 1 Tab PO DAILY Zyprexa Zydis (Olanzapine) 5 Mg Tab.rapdis 2.5 Mg PO Q2HR PRN Analgesic [place] (Methyl Salicylate/Menthol) 28 Gm Oint...g. 1 Gm TP QID PRN Milk Of Magnesia (Magnesium Hydroxide) 2,400 Mg/10 Ml Oral.susp 2,400 Mg PO HS PRN Mag-Al Plus Suspension (Mag Hydrox/Al Hydrox/Simeth) 30 Ml Oral.susp 15 Ml PO PRN AFTMEAL PRN Bisacodyl 10 Mg Supp.rect 10 Mg RC PRN DAILY PRN Lantus Solostar (Insulin Glargine,Hum.rec.anlog) 100 Unit/1 Ml Insuln.pen 10 Unit SQ DAILY Buspirone Hcl 5 Mg Tablet 5 Mg PO BID Fish Oil 1,200 mg Softgel ([place]-3S/Dha/Epa/Fish Oil) 1 Each Capsule.dr 1 Each PO QHS Carvedilol 25 Mg Tablet 12.5 Mg PO BIDWMEALS Centrum Silver Tablet (Multivits-Min/Fa/Lycopene/Lut) 1 Each Tablet 1 Each PO DAILY Aspirin 81 Mg Tab.chew 81 Mg PO DAILY Glimepiride 4 Mg Tablet 4 Mg PO DAILY I have reviewed the current psychotropics carefully including drug interactions. Risk benefit ratio favors no change other than as noted in my dictated progress note. Diagnosis: Problems: (1) Impulse control disorder (2) Dementia, vascular, with depression (3) Dementia, vascular, with delusions (4) Dementia in Alzheimer's disease with depression (5) Dementia in Alzheimer's disease with delusions (6) Anxiety disorder HERIBERTO TIMMONS MD April 11, 2018 18:53
--- NOTE | 2018-04-12 14:05 | DS ---
DATE OF DISCHARGE: 04/10/2018 DISCHARGE SUMMARY AND PSYCHIATRIC PROGRESS NOTE This is a late entry for date of service 04/10/2018 and covers elements not covered in my initial note of 04/10/2018. REASON FOR ADMISSION: Please refer to the admission history for details. Briefly, the patient is a 77-year-old male, referred to us from the Emergency Room at [facility] where he presented from home on account of increased confusion, combative behavior, threatening to , attempting to jump from a moving car on 2 separate occasions. The patient is extremely confused, anxious, agitated, labile in his mood, had failed outpatient psychiatric interventions, resulting in the visit to the ER and then referral to us for inpatient psychiatric stabilization. SIGNIFICANT FINDINGS AND CLINICAL COURSE: Following admission, the patient was seen daily individually by myself, medical followup per Dr. Colón/Dr Paris. The patient remains somewhat withdrawn, extremely anxious, labile, disruptive on the unit, unable to sit still, paranoid. I met with the patient daily individually from a psychiatric standpoint, medical followup per Dr. Colón/Dr Paris. His psychotropics were adjusted and he was on BuSpar 5 mg b.i.d., Zoloft 25 mg a day, Seroquel 12.5 mg at 0900 hours, 1300 hours and 1700 hours. With this, he was doing better with improved mood lability, though he remained confused. However, at this stage, he developed a UTI and renal insufficiency and was transferred to the ICU per Dr. Colón for further medical stabilization. REVIEW OF SYSTEMS: Prior to the transfer, ambulation impaired, in wheelchair. No CV, , pulmonary, eye system symptoms on review. MENTAL STATUS EXAM: Oriented to himself. Insight, judgment, recent and remote memory, attention, concentration, fund of knowledge poor, consistent with his diagnosis. CONDITION AT DISCHARGE: Improved from a psychiatric standpoint, but medically more compromised. FINAL DIAGNOSES: Major neurocognitive disorder, Alzheimer, vascular with depression, delusion, behavioral disturbance; anxiety disorder, unspecified; impulse control disorder, unspecified; urinary tract infection, acute renal failure as noted. Rest unchanged from admission. DISCHARGE MEDICATIONS: Please refer to the EMRAD. Psychiatric and medical followup in the ICU and we will reassess whether he needs to be back on the [facility] once he is medically stabilized. MAN Hill TIMMONS MD DR: Tristan JOB#: [id number] / [id number]
== END 2018-04-10 10:00 | disposition short-term general hospital (02) | DRG 884 ==
LOC: GEROPSY 15:00
PROVIDERS: ADMIT Psychiatry & Neurology Psychiatry; ATTEND Psychiatry & Neurology Psychiatry
DX: F01.51 Vascular dementia, unspecified severity, with behavioral disturbance (principal); G30.9 Alzheimer's disease, unspecified; I48.91 Unspecified atrial fibrillation; F02.81 Dementia in other diseases classified elsewhere, unspecified severity, with behavioral disturbance; E11.9 Type 2 diabetes mellitus without complications; R17 Unspecified jaundice; N39.0 Urinary tract infection, site not specified; I10 Essential (primary) hypertension; E78.5 Hyperlipidemia, unspecified; F63.9 Impulse disorder, unspecified; F41.9 Anxiety disorder, unspecified; F32.9 Major depressive disorder, single episode, unspecified; I25.2 Old myocardial infarction; Z95.1 Presence of aortocoronary bypass graft; Z95.0 Presence of cardiac pacemaker; Z79.899 Other long term (current) drug therapy; Z88.0 Allergy status to penicillin; Z88.1 Allergy status to other antibiotic agents
CPT/HCPCS: 36415; 71045; 80053; 80061; 81001; 82140; 82306; 82607; 82947; 83036; 83540; 83550; 83735; 84436; 84443; 84480; 84484; 85007; 85025; 85610; 86593; 87040; 87086; 93005; J1815

== ENCOUNTER 2018-04-10 10:15 | Inpatient (IN) | payer MEDICARE ==
[2018-04-10] VITALS (10 sets, daily range): BP systolic 100–156; BP diastolic 46–69
[~2018-04-10] VITALS: Ht 170.2 cm; Wt 75.1 kg
[~2018-04-10 10:15] MED LIST: AMIO200T2 PO; ASPI-630 PO; ATOR20TA58 PO; BISA10SU2 RC; BUSP5TAB PO; CARV25TA2 PO; GLIM4TAB2 PO; INSU100I13 SQ; MAG30ORA PO; MAGN2400 PO; METH29OI TP; MULT-658 PO; MULT-99 PO; OLAN5TAB5 PO; OMEG-167 PO; SERT25TA PO; WARF-31 PO
[2018-04-10] MEDS ORDERED: ACETAMINOPHEN 325 MG TABLET PO PRN (11:45)
[2018-04-10] MEDS ORDERED: ONDANSETRON PF 4 MG/2 ML VIAL. IV PRN (11:45)
[2018-04-10] MEDS ORDERED: MAG HYDROX/AL HYDROX/SIMETH 30 ML ORAL.SUSP PO PRN (11:45)
[2018-04-10] MEDS: IV NORMAL SALINE 1,000ML 1,000 ML IV SCH ×2 (11:51→22:41)
[2018-04-10] MEDS ORDERED: METHYL SALICYLATE/MENTHOL TOPICAL OINTMENT 29GM TUBE. TP PRN (13:30)
[2018-04-10] MEDS: MEROPENEM 500 MG in IV NORMAL SALINE 50ML 50 ML IV SCH ×2 (13:36→21:08)
[2018-04-10] MEDS ORDERED: BISACODYL 10 MG SUPP.RECT PR PRN (13:45)
--- NOTE | 2018-04-10 16:14 | CARD ---
MR#: [id number] Date of Study: 04/10/2018 Ordering Physician: MISHEL CARRILLO, Referring Physician: MISHEL CARRILLO Tech: Brittaney Hernandez RDCS APPROVED REPORT EXAM: Two-dimensional and M-mode echocardiogram with Doppler and color Doppler. Other Information Quality : Technically Limited Technically limited study due to body habitus. INDICATION Abnormal ECG 2D DIMENSIONS RVDd2.8 (2.9-3.5cm)Left Atrium(2D)4.3 (1.6-4.0cm) IVSd1.2 (0.7-1.1cm)Aortic Root(2D)2.9 (2.0-3.7cm) LVDd4.7 (3.9-5.9cm)LVOT Diameter2.3 (1.8-2.4cm) PWd1.2 (0.7-1.1cm)LVDs3.8 (2.5-4.0cm) FS (%) 19.6 %SV40.5 ml LVEF(%)40.2 (>50%) Aortic Valve AoV Peak Donnell.126.3cm/Val Peak GR.6.4mmHg LVOT Peak Donnell.98.5cm/sAVA (VMAX)3.19cm2 Mitral Valve MV E Ttxtdmps79.9cm/sMV DECEL [id number] MV A Nfhygofx96.1cm/sMV DOF18bk E/A Ratio1.1MVA (PHT)4.47cm2 LEFT VENTRICLE The left ventricle is normal size. There is mild concentric left ventricular hypertrophy. Akinetic ba phu inferior and posterior dempsey with ejection fraction estimated at 40-45%. RIGHT VENTRICLE The right ventricle is normal size. The right ventricular systolic function is normal. There is a pac emaker lead in the right ventricle. ATRIA The left atrium is mildly dilated. The right atrium is mildly dilated. A pacemaker is seen in the rig ht atrium consistent with history. The interatrial septum is intact with no evidence for an atrial se ptal defect or patent foramen ovale as noted on 2-D or Doppler imaging. AORTIC VALVE The aortic valve is calcified but opens well. Doppler and Color Flow revealed no significant aortic r egurgitation. There is no significant aortic valvular stenosis. MITRAL VALVE The mitral valve is calcified but opens well. There is no evidence of mitral valve prolapse. There is no mitral valve stenosis. Doppler and Color-flow revealed trace mitral regurgitation. TRICUSPID VALVE The tricuspid valve is normal in structure and function. Doppler and Color Flow revealed trace tricus pid regurgitation. There is no tricuspid valve stenosis. PULMONIC VALVE The pulmonic valve is not well visualized. Doppler and Color Flow revealed trace to mild pulmonic mei vular regurgitation. There is no pulmonic valvular stenosis. GREAT VESSELS The aortic root is normal in size. The ascending aorta is normal in size. The IVC was not visualized. PERICARDIAL EFFUSION There is no evidence of significant pericardial effusion. Critical Notification Critical Value: No <Conclusion> Technically difficult study. Akinetic basal inferior and posterior dempsey with ejection fraction estimated at 40-45%. A pacemaker is seen in the right atrium and right ventricle consistent with history. Trace mitral regurgitation. There is no evidence of significant pericardial effusion. Signed by : Jose Turner, Electronically Approved : 04/10/2018 16:13:27
--- NOTE | 2018-04-10 17:07 | HP ---
ADMIT DATE: 04/10/2018 HISTORY OF PRESENT ILLNESS: The patient is a 77-year-old male patient who was transferred from [facility] to the ICU on account of leukocytosis, worsening liver enzymes and possible urinary tract infection and sepsis. The patient was originally evaluated at [facility] and was admitted to [facility] on account of increased confusion and combative, threatening his , attempted to jump from the car twice. All this in a background of impulse control disorder and was admitted for inpatient psychiatric stabilization. When I saw him at [facility], he clearly has multiple lab abnormalities including markedly deranged liver enzymes. In fact his total bilirubin, AST, ALT, alkaline phosphatase were elevated and I held some of his medication including Tylenol, amiodarone, and because of his poor mobility I actually held even his Coumadin given that he is a high fall risk. I did repeat his labs this morning. His lab work actually has worsened. His white cell count has risen to 21,600, despite holding his Coumadin, his prothrombin time was 32.7 and INR of 3.2 and his serum creatinine and BUN has risen to 60 and 2.5. His liver enzymes have also dramatically risen further and therefore, a decision was made to transfer him to ICU with an indwelling Martinez catheter to rule out obstruction as the reason for his worsening kidney function. Urinalysis showed that his urine was calvin, cloudy and there was only 6-10 rbc's, but there were 20-40 wbc's and too many bacteria and was admitted. We will start him on IV antibiotic, probably meropenem given that he is ALLERGIC TO PENICILLIN and will rehydrate him aggressively and decide the further management accordingly. PAST MEDICAL HISTORY: Significant for dementia, hypertension, type 2 diabetes, hyperlipidemia, coronary artery disease; status post myocardial infarction, atrial fibrillation. PAST SURGICAL HISTORY: Significant for coronary artery disease; status post coronary artery bypass graft surgery and a permanent pacemaker placement. ALLERGIES: HE IS ALLERGIC TO PENICILLIN AND DOXYCYCLINE. CODE STATUS: He is full code. MEDICATIONS: He was transferred from [facility] on carvedilol 12.5 mg twice a day, bisacodyl 10 mg daily p.r.n., quetiapine fumarate 12.5 mg 3 times a day, sertraline 25 mg once a day, fish oil 1000 mg daily, multivitamin 1 tablet once a day, glimepiride 4 mg daily. He is on Lantus insulin 10 units at bedtime, aspirin 81 mg once a day, buspirone 5 mg twice a day, olanzapine 2.5 mg every 2 hours and milk of magnesia 30 mL p.o. daily p.r.n. for constipation, Mylanta 15 mL after meals. PHYSICAL EXAMINATION: GENERAL: On arrival to the ICU, he was actually more awake than when the last time I saw him upstairs, recognized his family. He was somewhat pale, jaundiced, but not cyanosis. No lymphadenopathy, no thyromegaly. No jugular venous distention. No limb edema. VITAL SIGNS: His heart rate was 74, blood pressure was 104/51, temperature was 98.1, respiratory rate was 22 and oxygen saturation was 94% on room air. HEAD, EYES, EARS, NOSE AND THROAT: Showed normocephalic, atraumatic. NECK: Supple. HEART: Showed normal first and second heart sounds with no gallop, rub or murmur. CHEST: Clear to auscultation. No crepitation or rhonchi. ABDOMEN: Distended, soft, nontender. No guarding or rigidity. No organomegaly. Hernial orifice intact. Bowel sounds normal. NEUROLOGIC: He is awake, alert, responding appropriately. All his cranial nerves intact. He moves his upper extremities to much good extent than lower extremities. According to his , he has a wheelchair and is able to walk short distances using his wheelchair on his own. LABORATORY WORK: Today showed his white cell count has dramatically risen to 21,600; hemoglobin 15; hematocrit 44; MCV 85; and platelet count of 232,000. His chemistry showed a serum sodium 136, potassium 4.2, chloride 99, bicarbonate 27, anion gap of 10, BUN 60, creatinine 2.5. Estimated GFR was 24 mL per minute. His glucose was 130, calcium was 9.1. Most recent magnesium was 2. His total bilirubin was 1.8, AST was 218, ALT 210, alkaline phosphatase was high at 127. His ammonia was less than 10 and his total protein was 6.7, albumin was 2.8. His prothrombin time was 32.7, INR of 3.2. Urinalysis showed the urine was cloudy with a pH of 5, specific gravity 1.025. There is large amount of protein, moderate amount of glucose. The urine was negative for ketones, a large amount of blood, negative for nitrite, negative for bilirubin. There was a trace of leukocyte esterase with 6-10 rbc's, 20-40 wbc's, and many bacteria. His RPR is pending. His chest x-ray showed low lung volumes noted, this augments the cardiomediastinal silhouette and pulmonary vasculature, pacemaker ICD device from left subclavian approach noted, prior median sternotomy noted. No pneumothorax, no definitive pleural effusion is seen. No focal infiltrate, it is definite no acute osseous changes are identified. IMPRESSION AND PLAN: In summary, this is a 77-year-old male patient who was transferred from [facility] with worsening leukocytosis, worsening liver enzymes and kidney function. A chest x-ray did not suggest any source of infection, although he seemed to have dysphagia. His urinalysis is suggestive of possible urinary tract infection as he is Allergic to PENICILLIN, I will start him on meropenem and continue with IV fluid. I would do 2 more sets of cardiac enzymes and EKG and decide on further management accordingly. MISHEL CARRILLO MD DR: MAVERICK/kitty JOB#: [id number] / [id number]
[2018-04-10] MEDS: CARVEDILOL 12.5 MG TABLET PO SCH (17:24)
[2018-04-10] MEDS: LORazepam 2 MG/ML VIAL IV PRN (19:28)
[2018-04-10] MEDS: busPIRone 5 MG TABLET. PO SCH (21:07)
[2018-04-11] VITALS (17 sets, daily range): BP systolic 82–151; BP diastolic 40–76
[2018-04-11] MEDS: LORazepam 2 MG/ML VIAL IV PRN ×3 (02:07→20:43)
[2018-04-11 06:49] LABS: BASO % 0 % (0-3); EOS # 0.1 x10^3/uL (0.0-0.7); EOS % 0 % (0-3); HEMATOCRIT 42.2 % (39.0-53.0); HEMOGLOBIN 14.2 g/dL (13.0-17.5); LYMPH # 0.5 x10^3/uL (1.0-4.8); LYMPH % 3 % (24-48); MEAN CORPUSCULAR HEMOGLOBIN 29 pg (25-35); MEAN CORPUSCULAR HGB CONC 34 g/dL (31-37); MEAN CORPUSCULAR VOLUME 86 fL (79-100); MONO # 0.7 x10^3/uL (0.0-1.1); MONO % 4 % (0-9); NEUT # 13.8 x10^3uL (1.8-7.7); NEUT % 92 % (31-73); PLATELET COUNT 184 x10^3/uL (140-400); RED BLOOD COUNT 4.89 x10^6/uL (4.30-5.70); RED CELL DISTRIBUTION WIDTH 14.4 % (11.5-14.5)
[2018-04-11 07:00] LABS: ALBUMIN 2.5 g/dL (3.4-5.0); ALBUMIN/GLOBULIN RATIO 0.6 (1.0-1.7); CALCIUM 8.9 mg/dL (8.5-10.1); CREATININE 1.7 mg/dL (0.7-1.3); GFR 39.1; POTASSIUM 5.4 mmol/L (3.5-5.1); TOTAL BILIRUBIN 1.5 mg/dL (0.2-1.0); TOTAL PROTEIN 6.4 g/dL (6.4-8.2)
[2018-04-11] MEDS: IV NORMAL SALINE 1,000ML 1,000 ML IV SCH ×2 (08:20→18:35)
[2018-04-11] MEDS: busPIRone 5 MG TABLET. PO SCH ×2 (08:26→20:38)
[2018-04-11] MEDS: ASPIRIN 81 MG TAB.CHEW PO SCH (08:26)
[2018-04-11] MEDS: CARVEDILOL 12.5 MG TABLET PO SCH ×2 (08:27→17:00)
[2018-04-11] MEDS: MEROPENEM 500 MG in IV NORMAL SALINE 50ML 50 ML IV SCH ×2 (08:28→20:38)
[2018-04-11] MEDS: INSULIN GLARGINE 300 UNITS/3 ML INSULN.PEN. SQ SCH (08:35)
--- NOTE | 2018-04-11 11:57 | RAD ---
CT head without intravenous contrast History: Altered mental status. Comparison: None. Technique: Axial images are obtained of the head from the skull base through the vertex without IV contrast. Exposure: One or more of the following individualized dose reduction techniques were utilized for this examination: 1. Automated exposure control 2. Adjustment of the mA and/or kV according to patient size 3. Use of iterative reconstruction technique Findings: There is motion artifact at many levels which could obscure subtle abnormalities. Large right parietal mellissa hole is seen. There is also evidence of previous left parietal craniotomy. Large amount of volume loss is seen involving the right occipital lobe, may relate to remote infarction infarction. There is also a small defect involving the right squamous temporal bone, may relate to previous surgery. The right lateral ventricle demonstrates compensatory dilatation secondary to volume loss. Moderate diffuse cerebral and cerebellar volume loss is seen. No intracranial mass is identified. No acute intracranial hemorrhage or obvious acute ischemic infarction is appreciated. Bone windows demonstrate no acute calvarial abnormality. Severe pansinus disease is seen with majority of the paranasal sinuses demonstrate complete opacification. Impression: 1. Limited by motion. 2. No acute intracranial process. Please note that CT can be relatively insensitive to acute ischemic infarction for up to 24 hours after symptom onset. 3. Chronic changes. 4. Severe pansinus disease. Electronically signed by: Jordan Whittaker MD (04/11/2018 11:53 AM) [facility]
[2018-04-11] MEDS: CLOTRIMAZOLE/BETAMETH 1%-0.05% TOPICAL CREAM 15GM TUBE. TP SCH ×2 (13:25→20:38)
--- NOTE | 2018-04-11 18:53 | PN ---
DATE: 04/11/2018 SUBJECTIVE: The patient is resting slightly propped up in bed, very heavily sedated as he was restless, agitated, and was given Ativan. OBJECTIVE: GENERAL: On examining him, he has periods of apnea indicating that he probably has obstructive sleep apnea; however, there is no pallor, jaundice, cyanosis, or thyromegaly. No jugular venous distension. No limb edema. VITAL SIGNS: Her heart rate was 74, blood pressure was 110/52, temperature was 98.6, respiratory rate was 18, and oxygen saturation was 95% on room air. HEAD, EYES, EARS, NOSE AND THROAT: Showed normocephalic, atraumatic. NECK: Supple. HEART: Showed normal first and second heart sounds. No gallop, rub or murmur. CHEST: Clear to auscultation. No crepitation or rhonchi. ABDOMEN: Distended, soft, and nontender. No guarding or rigidity. No organomegaly. Hernial orifice intact. Bowel sounds normal. NEUROLOGIC: He is very sedated; however, very difficult to really engage although the family said that he seemed to be different. His intake over the last 24 hours was 2400, output was 1575. LABORATORY DATA: Her lab work this morning showed a white cell count is down to 15,000 from high of 21,000, hemoglobin 14, hematocrit 42, MCV 86, and platelet count of 186,000. His chemistry showed a serum sodium of 42, potassium 5.4, chloride 108, bicarbonate 30, anion gap of 4, BUN 45, creatinine 1.7, estimated GFR was 39 mL per minute. His glucose was 232, calcium was 8.9. Total bilirubin 1.5. AST and ALT are slightly higher. However, the alkaline phosphatase and total bilirubin are lower. His total protein was 6.4, albumin was 2.5. His prothrombin time was 30.2, INR of 3. His blood cultures are so far showed no growth. ASSESSMENT: Acute kidney injury, marked leukocytosis, acute transaminitis, and urinary tract infection. PLAN: To continue with the intravenous fluid, intravenous meropenem. Continue holding on this occasion, especially for now that he is unable to and he is very sedated. We will consult the speech therapy. We will get a CT scan of the head with or without contrast and we will decide on further management accordingly. Repeat all his lab work including his ammonia and decide on further management accordingly. MISHEL CARRILLO MD DR: MAVERICK/kitty JOB#: [id number] / [id number]
[2018-04-11] MEDS: LACTOBACILLUS RHAMNOSUS GG 1 CAPSULE. PO SCH (20:38)
[2018-04-12] VITALS (10 sets, daily range): BP systolic 110–160; BP diastolic 56–86
[2018-04-12] MEDS: LORazepam 2 MG/ML VIAL IV PRN (01:51)
[2018-04-12] MEDS: IV NORMAL SALINE 1,000ML 1,000 ML IV SCH ×3 (05:16→23:40)
[2018-04-12 06:14] LABS: HEMATOCRIT 38.6 % (39.0-53.0); HEMOGLOBIN 13.1 g/dL (13.0-17.5); RED BLOOD COUNT 4.49 x10^6/uL (4.30-5.70); RED CELL DISTRIBUTION WIDTH 14.8 % (11.5-14.5); WHITE BLOOD COUNT 9.5 x10^3/uL (4.0-11.0)
--- NOTE | 2018-04-12 06:35 | PN ---
DATE: 04/11/2018 This late entry 04/11/2018 covers elements not covered in my initial note 04/11/2018. SUBJECTIVE: I met with the patient evening of 04/11/2018 and also met with the patient's son and [id number] who were visiting him. Briefly, the patient is a 77-year-old male who was [facility] being stabilized for his dementia with delusions, behavioral disturbance. He developed a UTI and renal failure and was transferred to the ICU per Dr. Colón. I have been asked to consult from a psychiatric standpoint and follow the patient while he is in the ICU and then consider whether he would need to come back to the [facility] once he is medically stable. I have discussed the patient with nursing staff, reviewed the chart. The patient remains confused. His renal failure is improving, and the agitation has been intermittent, but manageable. The son indicated that the patient has been able to recognize the son whenever the son would visit him, even though he has been quite confused, forgetful. REVIEW OF SYSTEMS: No CV, , pulmonary, eye, ENT system symptoms on review. The patient is quite sedated. MENTAL STATUS EXAM: Oriented to himself. Insight, judgment, recent and remote memory, attention, concentration, fund of knowledge poor, consistent with his diagnosis mentioned in my initial note. IMPRESSION: Major neurocognitive disorder, Alzheimer, vascular with delusion, depression, behavioral disturbance. Rest unchanged from initial note. PLAN: No change from a psychiatric standpoint, continue current psychotropics and I will follow him while he is in the ICU. MAN Hill TIMMONS MD DR: BRY/kitty JOB#: [id number] / [id number]
[2018-04-12 06:42] LABS: ALBUMIN 1.9 g/dL (3.4-5.0); ALBUMIN/GLOBULIN RATIO 0.5 (1.0-1.7); CALCIUM 8.4 mg/dL (8.5-10.1); CREATININE 1.3 mg/dL (0.7-1.3); GFR 53.3; TOTAL BILIRUBIN 1.1 mg/dL (0.2-1.0); TOTAL PROTEIN 5.4 g/dL (6.4-8.2)
[2018-04-12 07:14] LABS: HCV ANTIBODY <0.1 s/co ratio (0.0-0.9)
[2018-04-12] MEDS: INSULIN GLARGINE 300 UNITS/3 ML INSULN.PEN. SQ SCH (09:00)
[2018-04-12] MEDS: ASPIRIN 81 MG TAB.CHEW PO SCH (10:33)
[2018-04-12] MEDS: LACTOBACILLUS RHAMNOSUS GG 1 CAPSULE. PO SCH ×2 (10:33→20:52)
[2018-04-12] MEDS: CARVEDILOL 12.5 MG TABLET PO SCH ×2 (10:33→17:00)
[2018-04-12] MEDS: CLOTRIMAZOLE/BETAMETH 1%-0.05% TOPICAL CREAM 15GM TUBE. TP SCH ×2 (10:34→20:52)
[2018-04-12] MEDS: MEROPENEM 500 MG in IV NORMAL SALINE 50ML 50 ML IV SCH ×3 (10:34→23:14)
[2018-04-12] MEDS: busPIRone 5 MG TABLET. PO SCH ×2 (10:34→20:52)
[2018-04-12] MEDS ORDERED: MAGNESIUM HYDROXIDE 2,400 MG/30 ML ORAL.SUSP. PO PRN (13:15)
[2018-04-12] MEDS: INSULIN LISPRO 300 UNITS/3 ML INSULN.PEN. SQ SCH ×2 (14:30→20:30)
[2018-04-12] MEDS ORDERED: DEXTROSE 50% 25 GM / 50ML DISP.SYRIN. IV PRN (14:30)
[2018-04-12] MEDS: AA 3%/ELECTROLYTE-TPN SOLN/GLY 1,000 ML IV SCH (15:37)
--- NOTE | 2018-04-12 18:27 | PDOC ---
Exam Note: Mark Note: Please also refer to the separate dictated note~for this date of service dictated separately.~Patient seen individually. Discussed the patient with Nursing staff reviewed the chart.~Reviewed interim history and current functioning. Reviewed vital signs,~Labs/ Radiology~and current medications noted below. Continue current treatment with the changes noted in the dictated addendum noteLate entry for DOS 04/11/18 Assessment: Vital Signs: VS - Last 72 Hours, by Label Date Time Temp Pulse Resp B/P (MAP) Pulse Ox O2 Delivery O2 Flow Rate FiO2 04/12/18 15:00 97.7 04/12/18 11:38 69 18 143/63 (89) 96 Room Air 04/12/18 10:33 69 160/73 04/12/18 08:44 69 18 160/73 (102) 98 Room Air 04/12/18 08:00 Room Air 04/12/18 05:49 97.5 67 20 153/61 (91) 100 Nasal Cannula 3.0 04/12/18 04:49 67 17 136/70 (92) 100 Nasal Cannula 3.0 04/12/18 04:20 68 22 152/73 (99) 100 Nasal Cannula 3.0 04/12/18 04:00 Room Air 04/12/18 02:53 65 21 146/68 (94) 100 Nasal Cannula 3.0 04/12/18 01:29 69 12 140/60 (86) 100 Nasal Cannula 3.0 04/12/18 00:31 65 23 110/56 (74) 100 Nasal Cannula 3.0 04/11/18 23:59 Room Air 04/11/18 23:31 65 21 143/61 (88) 100 Nasal Cannula 3.0 04/11/18 22:31 63 19 102/51 (68) 100 Nasal Cannula 3.0 04/11/18 21:36 65 22 108/51 (70) 100 Nasal Cannula 3.0 04/11/18 20:59 69 24 104/43 (63) 100 Nasal Cannula 3.0 04/11/18 19:55 Room Air 04/11/18 19:34 72 23 119/55 (76) 100 Nasal Cannula 3.0 04/11/18 18:58 98.8 04/11/18 18:53 79 18 105/57 (73) 100 Nasal Cannula 3.0 04/11/18 18:21 71 20 99/40 (59) 95 Room Air 04/11/18 16:27 98.1 64 18 95/53 (67) 96 Room Air 04/11/18 16:00 Room Air 04/11/18 13:35 65 18 82/47 (59) 95 Room Air 04/11/18 11:00 Room Air 04/11/18 10:31 98.4 68 18 108/53 (71) 95 Room Air 04/11/18 08:27 80 04/11/18 08:15 74 18 110/52 (71) 95 Room Air 04/11/18 08:00 Room Air 04/11/18 06:00 80 18 113/62 (79) 95 Room Air 04/11/18 05:00 82 20 114/75 (88) 96 Room Air 04/11/18 04:00 Room Air 04/11/18 04:00 80 18 112/54 (73) 97 Room Air 04/11/18 03:00 80 18 149/76 (100) 96 Room Air 04/11/18 02:00 80 18 151/69 (96) 96 Room Air 04/11/18 00:01 78 18 128/63 (84) 98 Room Air 04/10/18 23:59 Room Air 04/10/18 23:00 80 16 117/53 (74) 98 Room Air 04/10/18 22:00 80 18 129/62 (84) 95 Room Air 04/10/18 21:00 76 18 151/68 (95) 98 Room Air 04/10/18 20:00 98.6 72 20 100/46 (64) 96 Room Air 04/10/18 20:00 Room Air 04/10/18 18:39 83 18 156/64 (94) 94 Room Air 04/10/18 17:24 80 139/64 04/10/18 17:19 99.0 81 18 139/68 (91) 94 Room Air 04/10/18 15:11 73 18 107/69 (82) 94 Room Air 04/10/18 14:06 74 20 107/69 (82) 94 Room Air 04/10/18 11:23 98.1 73 22 117/62 (80) 95 Room Air Vital Signs Date Time Temp Pulse Resp B/P (MAP) Pulse Ox O2 Delivery O2 Flow Rate FiO2 5/23/18 15:00 97.7 04/12/18 11:38 69 18 143/63 (89) 96 Room Air 04/12/18 05:49 3.0 I&O Intake and Output 04/12/18 07:00 Intake Total 1390 ml Output Total 1150 ml Balance 240 ml Intake Oral 390 ml IV Total 1000 ml Output Urine Total 1150 ml Labs: Laboratory Tests Test 04/11/18 18:54 04/12/18 05:48 04/12/18 14:20 Glucose (Fingerstick) 182 mg/dL (70-99) H 202 mg/dL (70-99) H White Blood Count 9.5 x10^3/uL (4.0-11.0) Red Blood Count 4.49 x10^6/uL (4.30-5.70) Hemoglobin 13.1 g/dL (13.0-17.5) Hematocrit 38.6 % (39.0-53.0) L Mean Corpuscular Volume 86 fL (79-100) Mean Corpuscular Hemoglobin 29 pg (25-35) Mean Corpuscular Hemoglobin Concent 34 g/dL (31-37) Red Cell Distribution Width 14.8 % (11.5-14.5) H Platelet Count 171 x10^3/uL (140-400) Prothrombin Time 30.6 SEC (9.4-11.4) H Prothrombin Time INR 3.0 (0.9-1.1) H Sodium Level 145 mmol/L (136-145) Potassium Level 4.0 mmol/L (3.5-5.1) Chloride Level 111 mmol/L (98-107) H Carbon Dioxide Level 30 mmol/L (21-32) Anion Gap 4 (6-14) L Blood Urea Nitrogen 33 mg/dL (8-26) H Creatinine 1.3 mg/dL (0.7-1.3) Estimated GFR (Cockcroft-Gault) 53.3 BUN/Creatinine Ratio 25 (6-20) H Glucose Level 159 mg/dL (70-99) H Calcium Level 8.4 mg/dL (8.5-10.1) L Total Bilirubin 1.1 mg/dL (0.2-1.0) H Aspartate Amino Transferase (AST) 118 U/L (15-37) H Alanine Aminotransferase (ALT) 185 U/L (16-63) H Alkaline Phosphatase 104 U/L (46-116) Ammonia 12 mcmol/L (11-34) Total Protein 5.4 g/dL (6.4-8.2) L Albumin 1.9 g/dL (3.4-5.0) L Albumin/Globulin Ratio 0.5 (1.0-1.7) L Current Medications: Meds: Current Medications Sodium Chloride 1,000 ml @ 100 mls/hr Q10H IV Last administered on 04/12/18 05:16; Start 04/10/18 at 11:40 Acetaminophen (Tylenol) 650 mg PRN Q6HRS PRN PO Headaches, Temp > 101.5F Last administered on 04/10/18 17:23; Start 04/10/18 at 11:45 Al Hydroxide/Mg Hydroxide (Mylanta Plus Xs) 30 ml PRN Q3HRS PRN PO HEARTBURN / GAS; Start 04/10/18 at 11:45 Ondansetron HCl (Zofran) 4 mg PRN Q8HRS PRN IV NAUSEA/VOMITING; Start 04/10/18 at 11:45 Insulin Glargine (Lantus) 10 units DAILY SQ Last administered on 04/11/18 08: 35; Start 04/11/18 at 09:00 Multi-Ingredient Ointment (Analgesic [place]) 1 markell PRN QID PRN TP MUSCLE PAIN; Start 04/10/18 at 13:30 Olanzapine (ZyPREXA ZYDIS) 2.5 mg PRN Q2HR PRN PO ANXIETY / AGITATION Last administered on 04/11/18 08:26; Start 04/10/18 at 13:30 Aspirin (Children'S Aspirin) 81 mg DAILYWBKFT PO Last administered on 10:33; Start 04/11/18 at 08:00 Bisacodyl (Dulcolax Supp) 10 mg PRN DAILY PRN [place] CONSTIPATION Last administered on 04/12/18 13:46; Start 04/10/18 at 13:45 Buspirone HCl (Buspar) 5 mg BID PO Last administered on 04/12/18 10:34; Start 04/10/18 at 21:00 Carvedilol (Coreg) 12.5 mg BIDWMEALS PO Last administered on 5/23/18at 10:33; Start 04/10/18 at 17:00 Meropenem 500 mg/ Sodium Chloride 50 ml @ 100 mls/hr Q12HR IV Last administered on 04/12/18at 10:34; Start 04/10/18 at 14:00; Stop 04/12/18 at 10:00 ; Status DC Haloperidol Lactate (Haldol) 5 mg PRN Q6HRS PRN IVP AGITATION; Start 04/10/18 at 19:15 Lorazepam (Ativan) 1 mg PRN Q4HRS PRN IV ANXIETY / AGITATION Last administered on 04/12/18at 01:51; Start 04/10/18 at 19:15; Stop 04/12/18 at 14:18; Status DC Lactobacillus Rhamnosus (Culturelle) 1 cap BID PO Last administered on at 10:33; Start 04/11/18 at 21:00 Betamethasone/ Clotrimazole (Lotrisone) 1 markell BID TP Last administered on at 10:34; Start 04/11/18 at 12:00 Meropenem 500 mg/ Sodium Chloride 50 ml @ 100 mls/hr Q8HRS IV Last administered on 04/12/18at 16:17; Start 04/12/18 at 15:30 Magnesium Hydroxide (Milk Of Magnesia) 2,400 mg PRN DAILY PRN PO CONSTIPATION; Start 04/12/18 at 13:15 Insulin Human Lispro (HumaLOG) 0-5 UNITS Q6H SQ ; Start 04/12/18 at 14:30 Dextrose 12.5 gm PRN Q15MIN PRN IV SEE COMMENTS; Start 04/12/18 at 14:30 Amino Acids/ Glycerin/ Electrolytes 1,000 ml @ 60 mls/hr [id number] IV Last administered on 04/12/18at 15:37; Start 04/12/18 at 15:00 Active Scripts Active Reported Zoloft (Sertraline Hcl) 25 Mg Tablet 1 Tab PO DAILY Zyprexa Zydis (Olanzapine) 5 Mg Tab.rapdis 2.5 Mg PO Q2HR PRN Analgesic [place] (Methyl Salicylate/Menthol) 28 Gm Oint...g. 1 Gm TP QID PRN Milk Of Magnesia (Magnesium Hydroxide) 2,400 Mg/10 Ml Oral.susp 2,400 Mg PO HS PRN Mag-Al Plus Suspension (Mag Hydrox/Al Hydrox/Simeth) 30 Ml Oral.susp 15 Ml PO PRN AFTMEAL PRN Bisacodyl 10 Mg Supp.rect 10 Mg RC PRN DAILY PRN Lantus Solostar (Insulin Glargine,Hum.rec.anlog) 100 Unit/1 Ml Insuln.pen 10 Unit SQ DAILY Buspirone Hcl 5 Mg Tablet 5 Mg PO BID Fish Oil 1,200 mg Softgel ([place]-3S/Dha/Epa/Fish Oil) 1 Each Capsule.dr 1 Each PO QHS Carvedilol 25 Mg Tablet 12.5 Mg PO BIDWMEALS Centrum Silver Tablet (Multivits-Min/Fa/Lycopene/Lut) 1 Each Tablet 1 Each PO DAILY Aspirin 81 Mg Tab.chew 81 Mg PO DAILY Glimepiride 4 Mg Tablet 4 Mg PO DAILY I have reviewed the current psychotropics carefully including drug interactions. Risk benefit ratio favors no change other than as noted in my dictated progress note. Diagnosis: Problems: (1) Impulse control disorder (2) Dementia, vascular, with depression (3) Dementia, vascular, with delusions (4) Dementia in Alzheimer's disease with depression (5) Dementia in Alzheimer's disease with delusions (6) Anxiety disorder HERIBERTO TIMMONS MD April 12, 2018 18:26
--- NOTE | 2018-04-12 18:40 | PDOC ---
Exam Note: Mark Note: Please also refer to the separate dictated note~for this date of service dictated separately.~Patient seen individually. Discussed the patient with Nursing staff reviewed the chart.~Reviewed interim history and current functioning. Reviewed vital signs,~Labs/ Radiology~and current medications noted below. Continue current treatment with the changes noted in the dictated addendum note Assessment: Vital Signs: Vital Signs Date Time Temp Pulse Resp B/P (MAP) Pulse Ox O2 Delivery O2 Flow Rate FiO2 04/12/18 15:00 97.7 04/12/18 11:38 69 18 143/63 (89) 96 Room Air 04/12/18 05:49 3.0 I&O Intake and Output 04/12/18 07:00 Intake Total 1390 ml Output Total 1150 ml Balance 240 ml Intake Oral 390 ml IV Total 1000 ml Output Urine Total 1150 ml Labs: Laboratory Tests Test 04/11/18 18:54 04/12/18 05:48 04/12/18 14:20 Glucose (Fingerstick) 182 mg/dL (70-99) H 202 mg/dL (70-99) H White Blood Count 9.5 x10^3/uL (4.0-11.0) Red Blood Count 4.49 x10^6/uL (4.30-5.70) Hemoglobin 13.1 g/dL (13.0-17.5) Hematocrit 38.6 % (39.0-53.0) L Mean Corpuscular Volume 86 fL (79-100) Mean Corpuscular Hemoglobin 29 pg (25-35) Mean Corpuscular Hemoglobin Concent 34 g/dL (31-37) Red Cell Distribution Width 14.8 % (11.5-14.5) H Platelet Count 171 x10^3/uL (140-400) Prothrombin Time 30.6 SEC (9.4-11.4) H Prothrombin Time INR 3.0 (0.9-1.1) H Sodium Level 145 mmol/L (136-145) Potassium Level 4.0 mmol/L (3.5-5.1) Chloride Level 111 mmol/L (98-107) H Carbon Dioxide Level 30 mmol/L (21-32) Anion Gap 4 (6-14) L Blood Urea Nitrogen 33 mg/dL (8-26) H Creatinine 1.3 mg/dL (0.7-1.3) Estimated GFR (Cockcroft-Gault) 53.3 BUN/Creatinine Ratio 25 (6-20) H Glucose Level 159 mg/dL (70-99) H Calcium Level 8.4 mg/dL (8.5-10.1) L Total Bilirubin 1.1 mg/dL (0.2-1.0) H Aspartate Amino Transferase (AST) 118 U/L (15-37) H Alanine Aminotransferase (ALT) 185 U/L (16-63) H Alkaline Phosphatase 104 U/L (46-116) Ammonia 12 mcmol/L (11-34) Total Protein 5.4 g/dL (6.4-8.2) L Albumin 1.9 g/dL (3.4-5.0) L Albumin/Globulin Ratio 0.5 (1.0-1.7) L Current Medications: Meds: Current Medications Sodium Chloride 1,000 ml @ 100 mls/hr Q10H IV Last administered on 04/12/18at 05:16; Start 04/10/18 at 11:40 Acetaminophen (Tylenol) 650 mg PRN Q6HRS PRN PO Headaches, Temp > 101.5F Last administered on 04/10/18at 17:23; Start 04/10/18 at 11:45 Al Hydroxide/Mg Hydroxide (Mylanta Plus Xs) 30 ml PRN Q3HRS PRN PO HEARTBURN / GAS; Start 04/10/18 at 11:45 Ondansetron HCl (Zofran) 4 mg PRN Q8HRS PRN IV NAUSEA/VOMITING; Start 04/10/18 at 11:45 Insulin Glargine (Lantus) 10 units DAILY SQ Last administered on 04/11/18at 08: 35; Start 04/11/18 at 09:00 Multi-Ingredient Ointment (Analgesic [place]) 1 markell PRN QID PRN TP MUSCLE PAIN; Start 04/10/18 at 13:30 Olanzapine (ZyPREXA ZYDIS) 2.5 mg PRN Q2HR PRN PO ANXIETY / AGITATION Last administered on 04/11/18at 08:26; Start 04/10/18 at 13:30 Aspirin (Children'S Aspirin) 81 mg DAILYWBKFT PO Last administered on at 10:33; Start 04/11/18 at 08:00 Bisacodyl (Dulcolax Supp) 10 mg PRN DAILY PRN [place] CONSTIPATION Last administered on 04/12/18 13:46; Start 04/10/18 at 13:45 Buspirone HCl (Buspar) 5 mg BID PO Last administered on 04/12/18at 10:34; Start 04/10/18 at 21:00 Carvedilol (Coreg) 12.5 mg BIDWMEALS PO Last administered on 04/12/18at 10:33; Start 04/10/18 at 17:00 Meropenem 500 mg/ Sodium Chloride 50 ml @ 100 mls/hr Q12HR IV Last administered on 04/12/18at 10:34; Start 04/10/18 at 14:00; Stop 04/12/18 at 10:00 ; Status DC Haloperidol Lactate (Haldol) 5 mg PRN Q6HRS PRN IVP AGITATION; Start 04/10/18 at 19:15 Lorazepam (Ativan) 1 mg PRN Q4HRS PRN IV ANXIETY / AGITATION Last administered on 04/12/18at 01:51; Start 04/10/18 at 19:15; Stop 04/12/18 at 14:18; Status DC Lactobacillus Rhamnosus (Culturelle) 1 cap BID PO Last administered on at 10:33; Start 04/11/18 at 21:00 Betamethasone/ Clotrimazole (Lotrisone) 1 markell BID TP Last administered on at 10:34; Start 04/11/18 at 12:00 Meropenem 500 mg/ Sodium Chloride 50 ml @ 100 mls/hr Q8HRS IV Last administered on 04/12/18at 16:17; Start 04/12/18 at 15:30 Magnesium Hydroxide (Milk Of Magnesia) 2,400 mg PRN DAILY PRN PO CONSTIPATION; Start 04/12/18 at 13:15 Insulin Human Lispro (HumaLOG) 0-5 UNITS Q6H SQ ; Start 04/12/18 at 14:30 Dextrose 12.5 gm PRN Q15MIN PRN IV SEE COMMENTS; Start 04/12/18 at 14:30 Amino Acids/ Glycerin/ Electrolytes 1,000 ml @ 60 mls/hr [id number] IV Last administered on 04/12/18at 15:37; Start 04/12/18 at 15:00 Active Scripts Active Reported Zoloft (Sertraline Hcl) 25 Mg Tablet 1 Tab PO DAILY Zyprexa Zydis (Olanzapine) 5 Mg Tab.rapdis 2.5 Mg PO Q2HR PRN Analgesic [place] (Methyl Salicylate/Menthol) 28 Gm Oint...g. 1 Gm TP QID PRN Milk Of Magnesia (Magnesium Hydroxide) 2,400 Mg/10 Ml Oral.susp 2,400 Mg PO HS PRN Mag-Al Plus Suspension (Mag Hydrox/Al Hydrox/Simeth) 30 Ml Oral.susp 15 Ml PO PRN AFTMEAL PRN Bisacodyl 10 Mg Supp.rect 10 Mg RC PRN DAILY PRN Lantus Solostar (Insulin Glargine,Hum.rec.anlog) 100 Unit/1 Ml Insuln.pen 10 Unit SQ DAILY Buspirone Hcl 5 Mg Tablet 5 Mg PO BID Fish Oil 1,200 mg Softgel ([place]-3S/Dha/Epa/Fish Oil) 1 Each Capsule.dr 1 Each PO QHS Carvedilol 25 Mg Tablet 12.5 Mg PO BIDWMEALS Centrum Silver Tablet (Multivits-Min/Fa/Lycopene/Lut) 1 Each Tablet 1 Each PO DAILY Aspirin 81 Mg Tab.chew 81 Mg PO DAILY Glimepiride 4 Mg Tablet 4 Mg PO DAILY I have reviewed the current psychotropics carefully including drug interactions. Risk benefit ratio favors no change other than as noted in my dictated progress note. Diagnosis: Problems: (1) Impulse control disorder (2) Dementia, vascular, with depression (3) Dementia, vascular, with delusions (4) Dementia in Alzheimer's disease with depression (5) Dementia in Alzheimer's disease with delusions (6) Anxiety disorder HERIBERTO TIMMONS MD April 12, 2018 18:40
--- NOTE | 2018-04-12 19:44 | PDOC ---
Exam Note: Mark Note: Please also refer to the separate dictated note~for this date of service dictated separately.~Patient seen individually. Discussed the patient with Nursing staff reviewed the chart.~Reviewed interim history and current functioning. Reviewed vital signs,~Labs/ Radiology~and current medications noted below. Continue current treatment with the changes noted in the dictated addendum note Assessment: Vital Signs: Vital Signs Date Time Temp Pulse Resp B/P (MAP) Pulse Ox O2 Delivery O2 Flow Rate FiO2 04/12/18 19:11 98.3 04/12/18 19:00 75 18 143/58 (86) 94 Room Air 04/12/18 05:49 3.0 I&O Intake and Output 04/12/18 07:00 Intake Total 1390 ml Output Total 1150 ml Balance 240 ml Intake Oral 390 ml IV Total 1000 ml Output Urine Total 1150 ml Labs: Laboratory Tests Test 04/12/18 05:48 04/12/18 14:20 White Blood Count 9.5 x10^3/uL (4.0-11.0) Red Blood Count 4.49 x10^6/uL (4.30-5.70) Hemoglobin 13.1 g/dL (13.0-17.5) Hematocrit 38.6 % (39.0-53.0) L Mean Corpuscular Volume 86 fL (79-100) Mean Corpuscular Hemoglobin 29 pg (25-35) Mean Corpuscular Hemoglobin Concent 34 g/dL (31-37) Red Cell Distribution Width 14.8 % (11.5-14.5) H Platelet Count 171 x10^3/uL (140-400) Prothrombin Time 30.6 SEC (9.4-11.4) H Prothrombin Time INR 3.0 (0.9-1.1) H Sodium Level 145 mmol/L (136-145) Potassium Level 4.0 mmol/L (3.5-5.1) Chloride Level 111 mmol/L (98-107) H Carbon Dioxide Level 30 mmol/L (21-32) Anion Gap 4 (6-14) L Blood Urea Nitrogen 33 mg/dL (8-26) H Creatinine 1.3 mg/dL (0.7-1.3) Estimated GFR (Cockcroft-Gault) 53.3 BUN/Creatinine Ratio 25 (6-20) H Glucose Level 159 mg/dL (70-99) H Calcium Level 8.4 mg/dL (8.5-10.1) L Total Bilirubin 1.1 mg/dL (0.2-1.0) H Aspartate Amino Transferase (AST) 118 U/L (15-37) H Alanine Aminotransferase (ALT) 185 U/L (16-63) H Alkaline Phosphatase 104 U/L (46-116) Ammonia 12 mcmol/L (11-34) Total Protein 5.4 g/dL (6.4-8.2) L Albumin 1.9 g/dL (3.4-5.0) L Albumin/Globulin Ratio 0.5 (1.0-1.7) L Glucose (Fingerstick) 202 mg/dL (70-99) H Current Medications: Meds: Current Medications Sodium Chloride 1,000 ml @ 100 mls/hr Q10H IV Last administered on 04/12/18at 05:16; Start 04/10/18 at 11:40 Acetaminophen (Tylenol) 650 mg PRN Q6HRS PRN PO Headaches, Temp > 101.5F Last administered on 04/10/18at 17:23; Start 04/10/18 at 11:45 Al Hydroxide/Mg Hydroxide (Mylanta Plus Xs) 30 ml PRN Q3HRS PRN PO HEARTBURN / GAS; Start 04/10/18 at 11:45 Ondansetron HCl (Zofran) 4 mg PRN Q8HRS PRN IV NAUSEA/VOMITING; Start 04/10/18 at 11:45 Insulin Glargine (Lantus) 10 units DAILY SQ Last administered on 04/11/18at 08: 35; Start 04/11/18 at 09:00 Multi-Ingredient Ointment (Analgesic [place]) 1 markell PRN QID PRN TP MUSCLE PAIN; Start 04/10/18 at 13:30 Olanzapine (ZyPREXA ZYDIS) 2.5 mg PRN Q2HR PRN PO ANXIETY / AGITATION Last administered on 04/12/18at 19:34; Start 04/10/18 at 13:30 Aspirin (Children'S Aspirin) 81 mg DAILYWBKFT PO Last administered on at 10:33; Start 04/11/18 at 08:00 Bisacodyl (Dulcolax Supp) 10 mg PRN DAILY PRN [place] CONSTIPATION Last administered on 04/12/18 13:46; Start 04/10/18 at 13:45 Buspirone HCl (Buspar) 5 mg BID PO Last administered on 04/12/18 10:34; Start 04/10/18 at 21:00 Carvedilol (Coreg) 12.5 mg BIDWMEALS PO Last administered on 04/12/18 10:33; Start 04/10/18 at 17:00 Meropenem 500 mg/ Sodium Chloride 50 ml @ 100 mls/hr Q12HR IV Last administered on 04/12/18at 10:34; Start 04/10/18 at 14:00; Stop 04/12/18 at 10:00 ; Status DC Haloperidol Lactate (Haldol) 5 mg PRN Q6HRS PRN IVP AGITATION; Start 04/10/18 at 19:15 Lorazepam (Ativan) 1 mg PRN Q4HRS PRN IV ANXIETY / AGITATION Last administered on 04/12/18at 01:51; Start 04/10/18 at 19:15; Stop 04/12/18 at 14:18; Status DC Lactobacillus Rhamnosus (Culturelle) 1 cap BID PO Last administered on at 10:33; Start 04/11/18 at 21:00 Betamethasone/ Clotrimazole (Lotrisone) 1 markell BID TP Last administered on at 10:34; Start 04/11/18 at 12:00 Meropenem 500 mg/ Sodium Chloride 50 ml @ 100 mls/hr Q8HRS IV Last administered on 04/12/18at 16:17; Start 04/12/18 at 15:30 Magnesium Hydroxide (Milk Of Magnesia) 2,400 mg PRN DAILY PRN PO CONSTIPATION; Start 04/12/18 at 13:15 Insulin Human Lispro (HumaLOG) 0-5 UNITS Q6H SQ ; Start 04/12/18 at 14:30 Dextrose 12.5 gm PRN Q15MIN PRN IV SEE COMMENTS; Start 04/12/18 at 14:30 Amino Acids/ Glycerin/ Electrolytes 1,000 ml @ 60 mls/hr [id number] IV Last administered on 04/12/18at 15:37; Start 04/12/18 at 15:00 Diclofenac Sodium (Voltaren) 1 markell DAILY TP ; Start 04/13/18 at 09:00 Active Scripts Active Reported Zoloft (Sertraline Hcl) 25 Mg Tablet 1 Tab PO DAILY Zyprexa Zydis (Olanzapine) 5 Mg Tab.rapdis 2.5 Mg PO Q2HR PRN Analgesic [place] (Methyl Salicylate/Menthol) 28 Gm Oint...g. 1 Gm TP QID PRN Milk Of Magnesia (Magnesium Hydroxide) 2,400 Mg/10 Ml Oral.susp 2,400 Mg PO HS PRN Mag-Al Plus Suspension (Mag Hydrox/Al Hydrox/Simeth) 30 Ml Oral.susp 15 Ml PO PRN AFTMEAL PRN Bisacodyl 10 Mg Supp.rect 10 Mg RC PRN DAILY PRN Lantus Solostar (Insulin Glargine,Hum.rec.anlog) 100 Unit/1 Ml Insuln.pen 10 Unit SQ DAILY Buspirone Hcl 5 Mg Tablet 5 Mg PO BID Fish Oil 1,200 mg Softgel ([place]-3S/Dha/Epa/Fish Oil) 1 Each Capsule.dr 1 Each PO QHS Carvedilol 25 Mg Tablet 12.5 Mg PO BIDWMEALS Centrum Silver Tablet (Multivits-Min/Fa/Lycopene/Lut) 1 Each Tablet 1 Each PO DAILY Aspirin 81 Mg Tab.chew 81 Mg PO DAILY Glimepiride 4 Mg Tablet 4 Mg PO DAILY I have reviewed the current psychotropics carefully including drug interactions. Risk benefit ratio favors no change other than as noted in my dictated progress note. Diagnosis: Problems: (1) Anxiety disorder (2) Dementia in Alzheimer's disease with delusions (3) Dementia in Alzheimer's disease with depression (4) Dementia, vascular, with delusions (5) Dementia, vascular, with depression (6) Impulse control disorder HERIBERTO TIMMONS MD April 12, 2018 19:44
[2018-04-12] MEDS: DICLOFENAC SODIUM 1% TOPICAL GEL 100GM TUBE. TP SCH (20:30)
[2018-04-12] MEDS: HALOPERIDOL LACT 5 MG/ML VIAL. IVP PRN (20:33)
--- NOTE | 2018-04-12 23:17 | OP ---
DATE OF SURGERY: 04/12/2018 PSYCHIATRIC PROGRESS NOTE This note covers elements not covered in my initial note of 04/12/2018. SUBJECTIVE: Met with the patient in evening of 04/12/2018. Discussed with nursing staff, reviewed the chart. I also met with two of the patient's daughters who were with him in his ICU bed 4. Overall, the patient is doing a little better. All his psychotropics have been discontinued and he has not received Ativan for about 16 hours, Zyprexa for about 12 hours or so. He has been more awake, alert. He is currently on n.p.o. status due to dysphagia. Last evening, he got agitated, was threatening nursing staff "I am going to break your arms off." Today, it's a little better. He is somewhat sedated. REVIEW OF SYSTEMS: No CV, , pulmonary, eye system symptoms on review, not very verbal. MENTAL STATUS EXAM: Oriented to himself. Insight, judgment, recent and remote memory, attention, concentration, fund of knowledge is poor, consistent with his diagnoses. IMPRESSION: Major neurocognitive disorder, Alzheimer, vascular with delusion, depression, behavioral disturbance. Rest unchanged from initial note. PLAN: No change from a psychiatric standpoint. HERIBERTO TIMMONS MD DR: BRY/kitty JOB#: [id number] / [id number]
[2018-04-13 00:41] VITALS: BP 160/79
[2018-04-13] MEDS: INSULIN LISPRO 300 UNITS/3 ML INSULN.PEN. SQ SCH ×4 (02:30→20:30)
[2018-04-13] MEDS: HALOPERIDOL LACT 5 MG/ML VIAL. IVP PRN ×2 (02:30→19:28)
[2018-04-13 03:52] VITALS: BP 177/86
--- NOTE | 2018-04-13 03:59 | PN ---
DATE: 04/12/2018 SUBJECTIVE: The patient is resting flat, comfortably in bed, in no apparent distress. He apparently spent about 3 hours in the chair and when he was taken back to his bed, he became very combative, restless, agitated. He was evaluated by the speech therapist and because he is very lethargic, they recommended that he should be n.p.o. until it became more awake, alert to participate with ____ evaluation. We will start him on procalamine, check his Accu-Cheks every 6 hours. I discontinued the lorazepam as he became extremely sedated with it and that we could use Zyprexa for his agitation. PHYSICAL EXAMINATION: GENERAL: When I saw him this afternoon, he was resting, flat, in no apparent respiratory distress, pale. No pallor, jaundice, cyanosis or thyromegaly. No jugular venous distention. No lower limb edema. VITAL SIGNS: His heart rate was 69, blood pressure 143/63, temperature was 97.5, respiratory rate was 18 and oxygen saturation was 96% on room air. HEAD, EYES, EARS, NOSE AND THROAT: Showed normocephalic, atraumatic. NECK: Supple. HEART: Showed normal first and second heart sounds. No gallop, rub or murmur. CHEST: Clear to auscultation. No crepitation or rhonchi. ABDOMEN: Distended, soft, nontender. No guarding or rigidity. No organomegaly. Hernial orifices intact. Bowel sounds normal. NEUROLOGIC: He is very lethargic, although continued to be very combative, restless, agitated. All his cranial nerves are grossly intact. He moves all extremities without difficulty. His intake over the last 24 hours was 2429, output 1575. LABORATORY DATA: Showed his serum sodium of 145, potassium 4, chloride 111, bicarbonate 30, anion gap of 4, BUN of 33, creatinine 1.3, estimated GFR was 53 mL per minute. His glucose 159, calcium was 8.4, bilirubin is down to 1.1. AST, ALT, and alkaline phosphatase are all trending downward. In fact, the alkaline phosphatase is normal. His ammonia is only 12. His total protein was 5.4, albumin was 1.9. His prothrombin time was 30.6 and INR of 3. His nasal screen for MRSA by PCR was positive and his hepatitis A IgM antibody, hepatitis B surface antigen, hepatitis B core IgM antibody and hepatitis C are all negative. We did a CT scan of the head yesterday without contrast, which basically showed that there is motion artifact at many levels, which could obscure subtle abnormalities; however, he has large right parietal mellissa hole seen. There is also evidence of previous left parietal craniotomy, large amount of volume loss is seen involving the right occipital lobe, may relate to remote infarction. There is also a small defect involving the right squamous temporal bone, may relate to previous surgery. The right lateral ventricle demonstrates a compensatory dilatation secondary to volume loss, moderate diffuse cerebral and cerebellar volume loss is seen. No intracranial mass is identified. No acute intracranial hemorrhage or obvious acute ischemic infarction is appreciated. 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 The patient is continued to be on IV meropenem as unfortunately he is allergic to penicillin. ASSESSMENT: 1. Acute kidney injury, resolved. His creatinine came down from 1.7 to 1.3, in fact upstairs it was 2.7. BUN is down from 45 to 33. 2. Hyperkalemia, resolved. His potassium is 4 today. 3. Acute transaminitis, resolving slowly. 4. Leukocytosis is resolving. His white cell count is down from 15,000 to 9500. 5. He has also pansinusitis. 6. Other medical problems include hypertension, seems to be well controlled; type 2 diabetes mellitus, reasonably controlled; hyperlipidemia, coronary artery disease, status post myocardial infarction; atrial fibrillation, so far rate controlled, well anticoagulated. His INR is continued to be supratherapeutic. PLAN: The plan is to discontinue lorazepam altogether and start him on procalamine 60 mL per hour and Accu-Cheks every 6 hours. MISHEL CARRILLO MD DR: MAVERICK/kitty JOB#: [id number] / [id number]
[2018-04-13] MEDS: MEROPENEM 500 MG in IV NORMAL SALINE 50ML 50 ML IV SCH ×3 (05:48→21:37)
[2018-04-13 06:29] LABS: ALBUMIN 2.2 g/dL (3.4-5.0); ALBUMIN/GLOBULIN RATIO 0.6 (1.0-1.7); CALCIUM 8.8 mg/dL (8.5-10.1); GFR 72.1; TOTAL BILIRUBIN 1.5 mg/dL (0.2-1.0)
[2018-04-13 06:30] LABS: HEMATOCRIT 41.9 % (39.0-53.0); RED BLOOD COUNT 4.9 x10^6/uL (4.30-5.70); RED CELL DISTRIBUTION WIDTH 14.5 % (11.5-14.5); WHITE BLOOD COUNT 10.2 x10^3/uL (4.0-11.0)
[2018-04-13] MEDS ORDERED: DICLOFENAC SODIUM 1% TOPICAL GEL 100GM TUBE. TP SCH (09:00)
[2018-04-13] MEDS: DICLOFENAC SODIUM 1% TOPICAL GEL 100GM TUBE. TP SCH ×2 (09:00→17:53)
[2018-04-13] MEDS: ASPIRIN 81 MG TAB.CHEW PO SCH (09:51)
[2018-04-13] MEDS: CARVEDILOL 12.5 MG TABLET PO SCH ×2 (09:51→17:25)
[2018-04-13] MEDS: LACTOBACILLUS RHAMNOSUS GG 1 CAPSULE. PO SCH ×2 (09:51→21:00)
[2018-04-13] MEDS: busPIRone 5 MG TABLET. PO SCH ×2 (09:51→19:27)
[2018-04-13] MEDS: CLOTRIMAZOLE/BETAMETH 1%-0.05% TOPICAL CREAM 15GM TUBE. TP SCH ×2 (09:55→21:37)
[2018-04-13] MEDS: TAMSULOSIN 0.4 MG CAP.ER.24H. PO SCH (09:56)
[2018-04-13 11:41] VITALS: BP 116/62
[2018-04-13] MEDS: AA 3%/ELECTROLYTE-TPN SOLN/GLY 1,000 ML IV SCH (13:34)
[2018-04-13 16:42] VITALS: BP 141/73
--- NOTE | 2018-04-13 18:22 | PDOC ---
Exam Note: Mark Note: Please also refer to the separate dictated note~for this date of service dictated separately.~Patient seen individually. Discussed the patient with Nursing staff reviewed the chart.~Reviewed interim history and current functioning. Reviewed vital signs,~Labs/ Radiology~and current medications noted below. Continue current treatment with the changes noted in the dictated addendum note Assessment: Vital Signs: Vital Signs Date Time Temp Pulse Resp B/P (MAP) Pulse Ox O2 Delivery O2 Flow Rate FiO2 04/13/18 17:25 75 141/73 04/13/18 16:42 18 95 Room Air 04/12/18 19:11 98.3 04/12/18 05:49 3.0 I&O Intake and Output 04/13/18 07:00 Intake Total 1150 ml Output Total 400 ml Balance 750 ml Intake Oral 200 ml IV Total 950 ml Output Urine Total 400 ml # Voids 13 # Bowel Movements 3 Labs: Laboratory Tests Test 04/12/18 21:22 04/13/18 05:52 04/13/18 13:30 Glucose (Fingerstick) 186 mg/dL (70-99) H 209 mg/dL (70-99) H White Blood Count 10.2 x10^3/uL (4.0-11.0) Red Blood Count 4.90 x10^6/uL (4.30-5.70) Hemoglobin 14.0 g/dL (13.0-17.5) Hematocrit 41.9 % (39.0-53.0) Mean Corpuscular Volume 86 fL (79-100) Mean Corpuscular Hemoglobin 29 pg (25-35) Mean Corpuscular Hemoglobin Concent 34 g/dL (31-37) Red Cell Distribution Width 14.5 % (11.5-14.5) Platelet Count 211 x10^3/uL (140-400) Prothrombin Time 26.2 SEC (9.4-11.4) H Prothrombin Time INR 2.6 (0.9-1.1) H Sodium Level 142 mmol/L (136-145) Potassium Level 4.0 mmol/L (3.5-5.1) Chloride Level 105 mmol/L (98-107) Carbon Dioxide Level 29 mmol/L (21-32) Anion Gap 8 (6-14) Blood Urea Nitrogen 22 mg/dL (8-26) Creatinine 1.0 mg/dL (0.7-1.3) Estimated GFR (Cockcroft-Gault) 72.1 BUN/Creatinine Ratio 22 (6-20) H Glucose Level 194 mg/dL (70-99) H Calcium Level 8.8 mg/dL (8.5-10.1) Total Bilirubin 1.5 mg/dL (0.2-1.0) H Aspartate Amino Transferase (AST) 148 U/L (15-37) H Alanine Aminotransferase (ALT) 236 U/L (16-63) H Alkaline Phosphatase 113 U/L (46-116) Total Protein 6.0 g/dL (6.4-8.2) L Albumin 2.2 g/dL (3.4-5.0) L Albumin/Globulin Ratio 0.6 (1.0-1.7) L Current Medications: Meds: Current Medications Sodium Chloride 1,000 ml @ 100 mls/hr Q10H IV Last administered on 04/12/18at 05:16; Start 04/10/18 at 11:40; Stop 04/13/18 at 03:45; Status DC Acetaminophen (Tylenol) 650 mg PRN Q6HRS PRN PO Headaches, Temp > 101.5F Last administered on 04/10/18at 17:23; Start 04/10/18 at 11:45 Al Hydroxide/Mg Hydroxide (Mylanta Plus Xs) 30 ml PRN Q3HRS PRN PO HEARTBURN / GAS; Start 04/10/18 at 11:45 Ondansetron HCl (Zofran) 4 mg PRN Q8HRS PRN IV NAUSEA/VOMITING; Start 04/10/18 at 11:45 Insulin Glargine (Lantus) 10 units DAILY SQ Last administered on 04/11/18at 08: 35; Start 04/11/18 at 09:00; Stop 04/13/18 at 09:43; Status DC Multi-Ingredient Ointment (Analgesic [place]) 1 markell PRN QID PRN TP MUSCLE PAIN; Start 04/10/18 at 13:30 Olanzapine (ZyPREXA ZYDIS) 2.5 mg PRN Q2HR PRN PO ANXIETY / AGITATION Last administered on 04/12/18at 23:28; Start 04/10/18 at 13:30 Aspirin (Children'S Aspirin) 81 mg DAILYWBKFT PO Last administered on 09:51; Start 04/11/18 at 08:00 Bisacodyl (Dulcolax Supp) 10 mg PRN DAILY PRN [place] CONSTIPATION Last administered on 04/12/18 13:46; Start 04/10/18 at 13:45 Buspirone HCl (Buspar) 5 mg BID PO Last administered on 04/13/18 09:51; Start 04/10/18 at 21:00 Carvedilol (Coreg) 12.5 mg BIDWMEALS PO Last administered on 04/13/18 17:25; Start 04/10/18 at 17:00 Meropenem 500 mg/ Sodium Chloride 50 ml @ 100 mls/hr Q12HR IV Last administered on 04/12/18 10:34; Start 04/10/18 at 14:00; Stop 04/12/18 at 10:00 ; Status DC Haloperidol Lactate (Haldol) 5 mg PRN Q6HRS PRN IVP AGITATION Last administered on 04/13/18 02:30; Start 04/10/18 at 19:15 Lorazepam (Ativan) 1 mg PRN Q4HRS PRN IV ANXIETY / AGITATION Last administered on 04/12/18 01:51; Start 04/10/18 at 19:15; Stop 04/12/18 at 14:18; Status DC Lactobacillus Rhamnosus (Culturelle) 1 cap BID PO Last administered on 09:51; Start 04/11/18 at 21:00 Betamethasone/ Clotrimazole (Lotrisone) 1 markell BID TP Last administered on 09:55; Start 04/11/18 at 12:00 Meropenem 500 mg/ Sodium Chloride 50 ml @ 100 mls/hr Q8HRS IV Last administered on 04/13/18 13:34; Start 04/12/18 at 15:30 Magnesium Hydroxide (Milk Of Magnesia) 2,400 mg PRN DAILY PRN PO CONSTIPATION; Start 04/12/18 at 13:15 Insulin Human Lispro (HumaLOG) 0-5 UNITS Q6H SQ ; Start 04/12/18 at 14:30 Dextrose 12.5 gm PRN Q15MIN PRN IV SEE COMMENTS; Start 04/12/18 at 14:30 Amino Acids/ Glycerin/ Electrolytes 1,000 ml @ 60 mls/hr [id number] IV Last administered on 04/13/18at 13:34; Start 04/12/18 at 15:00 Diclofenac Sodium (Voltaren) 1 markell DAILY TP ; Start 04/13/18 at 09:00; Stop at 09:00; Status DC Diclofenac Sodium (Voltaren) 1 markell DAILY TP Last administered on 04/13/18at 17: 53; Start 04/12/18 at 20:30 Tamsulosin HCl (Flomax) 0.4 mg DAILY PO Last administered on 04/13/18at 09:56; Start 04/13/18 at 10:00 Active Scripts Active Reported Zoloft (Sertraline Hcl) 25 Mg Tablet 1 Tab PO DAILY Zyprexa Zydis (Olanzapine) 5 Mg Tab.rapdis 2.5 Mg PO Q2HR PRN Analgesic [place] (Methyl Salicylate/Menthol) 28 Gm Oint...g. 1 Gm TP QID PRN Milk Of Magnesia (Magnesium Hydroxide) 2,400 Mg/10 Ml Oral.susp 2,400 Mg PO HS PRN Mag-Al Plus Suspension (Mag Hydrox/Al Hydrox/Simeth) 30 Ml Oral.susp 15 Ml PO PRN AFTMEAL PRN Bisacodyl 10 Mg Supp.rect 10 Mg RC PRN DAILY PRN Lantus Solostar (Insulin Glargine,Hum.rec.anlog) 100 Unit/1 Ml Insuln.pen 10 Unit SQ DAILY Buspirone Hcl 5 Mg Tablet 5 Mg PO BID Fish Oil 1,200 mg Softgel ([place]-3S/Dha/Epa/Fish Oil) 1 Each Capsule.dr 1 Each PO QHS Carvedilol 25 Mg Tablet 12.5 Mg PO BIDWMEALS Centrum Silver Tablet (Multivits-Min/Fa/Lycopene/Lut) 1 Each Tablet 1 Each PO DAILY Aspirin 81 Mg Tab.chew 81 Mg PO DAILY Glimepiride 4 Mg Tablet 4 Mg PO DAILY I have reviewed the current psychotropics carefully including drug interactions. Risk benefit ratio favors no change other than as noted in my dictated progress note. Diagnosis: Problems: (1) Impulse control disorder (2) Dementia, vascular, with depression (3) Dementia, vascular, with delusions (4) Dementia in Alzheimer's disease with depression (5) Dementia in Alzheimer's disease with delusions (6) Anxiety disorder HERIBERTO TIMMONS MD April 13, 2018 18:22
[2018-04-13 19:58] VITALS: BP 122/80
[2018-04-13 22:48] VITALS: BP 176/86
--- NOTE | 2018-04-13 23:21 | PN ---
DATE: 04/13/2018 SUBJECTIVE: The patient is resting, slightly propped up in his recliner. He continues to be extremely restless, agitated, and has urinated about 13 times. He has a sense of urgency. All his symptoms are consistent with benign prostatic hypertrophy. He also seemed to be sundowning, required 2 doses of Zyprexa and Haldol last night; however, he does wake up and respond to recognize his . PHYSICAL EXAMINATION: GENERAL: When I examined him, he looked pale, but no jaundice, cyanosis, or thyromegaly. No jugular venous distention. No lower limb edema. VITAL SIGNS: His heart rate was 85, blood pressure was 177/86, temperature was 98.3, respiratory rate was 18, and oxygen saturation was 97% on room air. HEAD, EYES, EARS, NOSE AND THROAT: Showed normocephalic, atraumatic. NECK: Supple. HEART: Showed normal first and second heart sounds. No gallop, rub or murmur. CHEST: Clear to auscultation. No crepitation or rhonchi. ABDOMEN: Distended, soft, nontender. NEUROLOGIC: Neurologically, he is sleepy, but arousable. All his cranial nerves are intact. He moves extremities without difficulty. His intake was 1440, output was 1150. LABORATORY DATA: Her lab work this morning showed white cell count of 10,000, hemoglobin 14, hematocrit 42, MCV 86, and platelet count 211,000. His chemistry showed a serum sodium 142, potassium 4, chloride 105, bicarbonate 29, anion gap of 8, BUN 22, creatinine 1, estimated GFR was 72 mL per minute. His glucose was 194, calcium was 8.8. Total bilirubin is slightly elevated at 1.5. AST, ALT also rising again, but the alkaline phosphatase is still within normal limit. His total protein was 6, albumin 2.2. His prothrombin time is 26.2, INR of 2.6. His nasal screen for MRSA by PCR was positive; however, his hepatitis A IgM antibody, hepatitis B surface antigen, hepatitis B core IgM antibody, and hepatitis C antibody are all negative. ASSESSMENT: 1. Major neurocognitive disorder, Alzheimer, vascular with delusion, depression, behavioral disturbances. The patient is sundowning. He is very restless, agitated. 2. Acute kidney injury, resolved. His serum creatinine came down from 2.4 down to 1. 3. Hyperkalemia, resolved. His most recent serum potassium is 4 mEq per liter. 4. Acute transaminitis, resolved. Unfortunately, his AST, ALT are rising after we started him on procalamine. 5. Leukocytosis, resolving. His white cell count in fact is down today to 10,000 from 15,000. CT scan showed some old injury as well as pansinusitis. 6. Other medical problems include: A. Hypertension. B. Type 2 diabetes. C. Hyperlipidemia. D. Coronary artery disease, status post myocardial infarction. E. Atrial fibrillation, rate controlled. He is well anticoagulated. His INR is still within therapeutic range. PLAN: We have to discuss with the problem. The patient has dysphagia. He is too lethargic to participate with video swallowing evaluation to find the right consistency and I will have to discuss with Dr. Giang to see if he can increase his either Seroquel or Zyprexa ____ in the evening or at nighttime so that he can be a more awake at daytime. MISHEL CARRILLO MD DR: MAVERICK/kitty JOB#: [id number] / [id number]
[2018-04-14] MEDS: AA 3%/ELECTROLYTE-TPN SOLN/GLY 1,000 ML IV SCH ×2 (00:51→17:27)
[2018-04-14] MEDS: INSULIN LISPRO 300 UNITS/3 ML INSULN.PEN. SQ SCH ×4 (02:30→22:36)
[2018-04-14 03:06] VITALS: BP 169/78
[2018-04-14] MEDS: MEROPENEM 500 MG in IV NORMAL SALINE 50ML 50 ML IV SCH ×3 (05:01→22:35)
[2018-04-14 06:21] LABS: CALCIUM 8.3 mg/dL (8.5-10.1); GFR 72.1; POTASSIUM 3.5 mmol/L (3.5-5.1)
[2018-04-14 06:37] LABS: HEMATOCRIT 40.7 % (39.0-53.0); HEMOGLOBIN 14.1 g/dL (13.0-17.5); RED BLOOD COUNT 4.84 x10^6/uL (4.30-5.70); RED CELL DISTRIBUTION WIDTH 14.3 % (11.5-14.5); WHITE BLOOD COUNT 7.2 x10^3/uL (4.0-11.0)
[2018-04-14] MEDS: ASPIRIN 81 MG TAB.CHEW PO SCH (07:26)
[2018-04-14] MEDS: CARVEDILOL 12.5 MG TABLET PO SCH ×2 (07:26→17:00)
[2018-04-14] MEDS: busPIRone 5 MG TABLET. PO SCH (07:26)
[2018-04-14] MEDS: CLOTRIMAZOLE/BETAMETH 1%-0.05% TOPICAL CREAM 15GM TUBE. TP SCH ×2 (07:27→22:36)
[2018-04-14] MEDS: TAMSULOSIN 0.4 MG CAP.ER.24H. PO SCH (08:52)
[2018-04-14] MEDS: LACTOBACILLUS RHAMNOSUS GG 1 CAPSULE. PO SCH ×2 (09:08→19:47)
[2018-04-14 10:01] VITALS: BP 114/67
[2018-04-14] MEDS: DICLOFENAC SODIUM 1% TOPICAL GEL 100GM TUBE. TP SCH (10:37)
[2018-04-14 17:40] VITALS: BP 100/61
--- NOTE | 2018-04-14 18:56 | PDOC ---
Exam Note: Mark Note: Please also refer to the separate dictated note~for this date of service dictated separately.~Patient seen individually. Discussed the patient with Nursing staff reviewed the chart.~Reviewed interim history and current functioning. Reviewed vital signs,~Labs/ Radiology~and current medications noted below. Continue current treatment with the changes noted in the dictated addendum note Assessment: Vital Signs: Vital Signs Date Time Temp Pulse Resp B/P (MAP) Pulse Ox O2 Delivery O2 Flow Rate FiO2 04/14/18 17:40 97.9 74 22 100/61 (74) 99 Room Air 04/12/18 05:49 3.0 I&O Intake and Output 04/14/18 07:00 Intake Total 1100 ml Output Total 300 ml Balance 800 ml Intake Oral 0 ml IV Total 1100 ml Output Urine Total 300 ml # Voids 7 Labs: Laboratory Tests Test 04/13/18 21:40 04/14/18 02:42 04/14/18 05:56 04/14/18 09:21 Glucose (Fingerstick) 220 mg/dL (70-99) H 179 mg/dL (70-99) H 198 mg/dL (70-99) H White Blood Count 7.2 x10^3/uL (4.0-11.0) Red Blood Count 4.84 x10^6/uL (4.30-5.70) Hemoglobin 14.1 g/dL (13.0-17.5) Hematocrit 40.7 % (39.0-53.0) Mean Corpuscular Volume 84 fL (79-100) Mean Corpuscular Hemoglobin 29 pg (25-35) Mean Corpuscular Hemoglobin Concent 35 g/dL (31-37) Red Cell Distribution Width 14.3 % (11.5-14.5) Platelet Count 203 x10^3/uL (140-400) Prothrombin Time 27.1 SEC (9.4-11.4) H Prothrombin Time INR 2.7 (0.9-1.1) H Sodium Level 142 mmol/L (136-145) Potassium Level 3.5 mmol/L (3.5-5.1) Chloride Level 104 mmol/L (98-107) Carbon Dioxide Level 31 mmol/L (21-32) Anion Gap 7 (6-14) Blood Urea Nitrogen 20 mg/dL (8-26) Creatinine 1.0 mg/dL (0.7-1.3) Estimated GFR (Cockcroft-Gault) 72.1 Glucose Level 175 mg/dL (70-99) H Calcium Level 8.3 mg/dL (8.5-10.1) L Test 04/14/18 16:36 Glucose (Fingerstick) 219 mg/dL (70-99) H Current Medications: Meds: Current Medications Sodium Chloride 1,000 ml @ 100 mls/hr Q10H IV Last administered on 04/12/18at 05:16; Start 04/10/18 at 11:40; Stop 04/13/18 at 03:45; Status DC Acetaminophen (Tylenol) 650 mg PRN Q6HRS PRN PO Headaches, Temp > 101.5F Last administered on 04/10/18at 17:23; Start 04/10/18 at 11:45 Al Hydroxide/Mg Hydroxide (Mylanta Plus Xs) 30 ml PRN Q3HRS PRN PO HEARTBURN / GAS; Start 04/10/18 at 11:45 Ondansetron HCl (Zofran) 4 mg PRN Q8HRS PRN IV NAUSEA/VOMITING; Start 04/10/18 at 11:45 Insulin Glargine (Lantus) 10 units DAILY SQ Last administered on 04/11/18at 08: 35; Start 04/11/18 at 09:00; Stop 04/13/18 at 09:43; Status DC Multi-Ingredient Ointment (Analgesic [place]) 1 markell PRN QID PRN TP MUSCLE PAIN; Start 04/10/18 at 13:30 Olanzapine (ZyPREXA ZYDIS) 2.5 mg PRN Q2HR PRN PO ANXIETY / AGITATION Last administered on 04/14/18at 03:13; Start 04/10/18 at 13:30; Stop 04/14/18 at 15:38 ; Status DC Aspirin (Children'S Aspirin) 81 mg DAILYWBKFT PO Last administered on at 07:26; Start 04/11/18 at 08:00 Bisacodyl (Dulcolax Supp) 10 mg PRN DAILY PRN [place] CONSTIPATION Last administered on 04/12/18at 13:46; Start 04/10/18 at 13:45 Buspirone HCl (Buspar) 5 mg BID PO Last administered on 04/14/18 07:26; Start 04/10/18 at 21:00; Stop 04/14/18 at 15:38; Status DC Carvedilol (Coreg) 12.5 mg BIDWMEALS PO Last administered on 04/14/18at 07:26; Start 04/10/18 at 17:00 Meropenem 500 mg/ Sodium Chloride 50 ml @ 100 mls/hr Q12HR IV Last administered on 04/12/18at 10:34; Start 04/10/18 at 14:00; Stop 04/12/18 at 10:00 ; Status DC Haloperidol Lactate (Haldol) 5 mg PRN Q6HRS PRN IVP AGITATION Last administered on 04/13/18at 19:28; Start 04/10/18 at 19:15; Stop 04/14/18 at 15:38 ; Status DC Lorazepam (Ativan) 1 mg PRN Q4HRS PRN IV ANXIETY / AGITATION Last administered on 04/12/18at 01:51; Start 04/10/18 at 19:15; Stop 04/12/18 at 14:18; Status DC Lactobacillus Rhamnosus (Culturelle) 1 cap BID PO Last administered on at 09:08; Start 04/11/18 at 21:00 Betamethasone/ Clotrimazole (Lotrisone) 1 markell BID TP Last administered on at 07:27; Start 04/11/18 at 12:00 Meropenem 500 mg/ Sodium Chloride 50 ml @ 100 mls/hr Q8HRS IV Last administered on 04/14/18at 14:51; Start 04/12/18 at 15:30 Magnesium Hydroxide (Milk Of Magnesia) 2,400 mg PRN DAILY PRN PO CONSTIPATION; Start 04/12/18 at 13:15 Insulin Human Lispro (HumaLOG) 0-5 UNITS Q6H SQ ; Start 04/12/18 at 14:30 Dextrose 12.5 gm PRN Q15MIN PRN IV SEE COMMENTS; Start 04/12/18 at 14:30 Amino Acids/ Glycerin/ Electrolytes 1,000 ml @ 60 mls/hr [id number] IV Last administered on 04/14/18at 17:27; Start 04/12/18 at 15:00 Diclofenac Sodium (Voltaren) 1 markell DAILY TP ; Start 04/13/18 at 09:00; Stop at 09:00; Status DC Diclofenac Sodium (Voltaren) 1 markell DAILY TP Last administered on 04/14/18at 10: 37; Start 04/12/18 at 20:30 Tamsulosin HCl (Flomax) 0.4 mg DAILY PO Last administered on 04/14/18at 08:52; Start 04/13/18 at 10:00 Active Scripts Active Reported Zoloft (Sertraline Hcl) 25 Mg Tablet 1 Tab PO DAILY Zyprexa Zydis (Olanzapine) 5 Mg Tab.rapdis 2.5 Mg PO Q2HR PRN Analgesic [place] (Methyl Salicylate/Menthol) 28 Gm Oint...g. 1 Gm TP QID PRN Milk Of Magnesia (Magnesium Hydroxide) 2,400 Mg/10 Ml Oral.susp 2,400 Mg PO HS PRN Mag-Al Plus Suspension (Mag Hydrox/Al Hydrox/Simeth) 30 Ml Oral.susp 15 Ml PO PRN AFTMEAL PRN Bisacodyl 10 Mg Supp.rect 10 Mg RC PRN DAILY PRN Lantus Solostar (Insulin Glargine,Hum.rec.anlog) 100 Unit/1 Ml Insuln.pen 10 Unit SQ DAILY Buspirone Hcl 5 Mg Tablet 5 Mg PO BID Fish Oil 1,200 mg Softgel ([place]-3S/Dha/Epa/Fish Oil) 1 Each Capsule. 1 Each PO QHS Carvedilol 25 Mg Tablet 12.5 Mg PO BIDWMEALS Centrum Silver Tablet (Multivits-Min/Fa/Lycopene/Lut) 1 Each Tablet 1 Each PO DAILY Aspirin 81 Mg Tab.chew 81 Mg PO DAILY Glimepiride 4 Mg Tablet 4 Mg PO DAILY I have reviewed the current psychotropics carefully including drug interactions. Risk benefit ratio favors no change other than as noted in my dictated progress note. Diagnosis: Problems: (1) Impulse control disorder (2) Dementia, vascular, with depression (3) Dementia, vascular, with delusions (4) Dementia in Alzheimer's disease with depression (5) Dementia in Alzheimer's disease with delusions (6) Anxiety disorder HERIBERTO TIMMONS MD April 14, 2018 18:56
[2018-04-14 19:20] VITALS: BP 154/84
--- NOTE | 2018-04-14 21:18 | PN ---
DATE: 04/14/2018 SUBJECTIVE: The patient is a 77-year-old male patient who was transferred from [facility] with multiple medical problems including acute kidney injury, acute transaminitis, hyperkalemia, marked leukocytosis, and urinary tract infection. He was started empirically on IV meropenem and vancomycin. His hyperkalemia and acute kidney injury has resolved. In fact, his BUN came down from 45-20, creatinine came down from 2.5 upstairs to 1 mg today. His potassium has finally normalized to 3.5 from 5.4 and his leukocytosis resolved from 15,000-7200. His blood culture has finally grown Serratia marcescens sensitive to cephalosporins as well as the . Unfortunately, the improvement in his labs and kidney function and liver enzymes not coincide with improvement in mental status. He continued to be extremely restless, agitated, nighttime requiring sedation. The patient is extremely lethargic and sleepy that is difficult to evaluate. He is a very high risk at aspiration. He was evaluated twice by the speech therapist and every time he continued to be extremely sedated and my plan was to discontinue everything that might be contributing to sedation with one-on-one sitter and hopefully evaluate him again tomorrow when he is awake and alert. I have spoken with his daughter that we have only two options available either to be aggressive if he failed again and to put a feeding tube and/or consider hospice and palliative care. PHYSICAL EXAMINATION: GENERAL: When I saw him today, he was very lethargic, but does open his eyes and responds verbally, although he does not maintain that for long. He is pale, no jaundice, cyanosis, or thyromegaly. No jugular venous distension. No limb edema. VITAL SIGNS: His heart rate was 72, blood pressure 114/67, temperature was 98, respiratory rate was 22, and oxygen saturation was 99%. HEAD, EYES, EARS, NOSE, AND THROAT: Normocephalic, atraumatic. NECK: Supple. HEART: Showed normal first and second sounds. No gallop, rub, or murmur. CHEST: Clear to auscultation. No crepitation or rhonchi. ABDOMEN: Distended, soft, nontender. No guarding or rigidity. No organomegaly. All hernial orifice intact. Bowel sounds normal. NEUROLOGIC: He is very lethargic, but arousable. He opens eyes, responds verbally and drifts back to sleep. All his cranial nerves are intact. He moves extremities without difficulty, although he is mostly bed bound. His intake over the last 24 hours is 1100, output was 400. LABORATORY DATA: His lab work this morning showed white cell count 7200, hemoglobin 14, hematocrit 40, MCV 84, and platelet count of 203,000. His chemistry showed a serum sodium 142, potassium 3.5, chloride 104, bicarbonate 31, anion gap of 7, BUN 20, creatinine 1, estimated GFR was 72 mL per minute, his glucose 175, calcium was 8.3. His prothrombin time continued to be high at 27.1 and INR of 2.7. ASSESSMENT AND PLAN: 1. Major neurocognitive disorder, Alzheimer, vascular with delusion, depression, behavioral disturbance. The patient is sundowning. He is very restless, agitated at nighttime, requiring sedation and make him very sleepy during the daytime. 2. Acute kidney injury, resolved. His serum creatinine came down from 2.4-1 mg. 3. Hyperkalemia, resolved. His most recent serum potassium is down to 3.5. 4. Acute transaminitis, resolved. 5. Leukocytosis, resolved. His white cell count came down from 7000. His CT scan showed some old injuries as well as pansinusitis. 6. Other medical problems include; a. Hypertension. b. Type 2 diabetes. c. Hyperlipidemia. d. Coronary artery disease, status post myocardial infarction. e. Atrial fibrillation, rate controlled. He is well anticoagulated. His INR is still within therapeutic range. 7. The patient has dysphagia and he is too lethargic to participate with video swallowing evaluation to find the right consistency. I did discontinue all his psychotropic medications. I am going to order 1:1 sitter and to evaluate him tomorrow. If that has not made any difference, we have to discuss with the family two options available, either feeding tube and/or palliative and hospice care. MISHEL CARRILLO MD DR: MAVERICK/kitty JOB#: [id number] / [id number]
[2018-04-15] MEDS: INSULIN LISPRO 300 UNITS/3 ML INSULN.PEN. SQ SCH ×4 (02:30→20:30)
[2018-04-15 05:25] VITALS: BP 140/62
[2018-04-15] MEDS: MEROPENEM 500 MG in IV NORMAL SALINE 50ML 50 ML IV SCH ×3 (05:30→22:53)
[2018-04-15 06:14] LABS: ALBUMIN/GLOBULIN RATIO 0.6 (1.0-1.7); CALCIUM 8.6 mg/dL (8.5-10.1); CREATININE 1.2 mg/dL (0.7-1.3); GFR 58.4; POTASSIUM 4.1 mmol/L (3.5-5.1); TOTAL BILIRUBIN 1.2 mg/dL (0.2-1.0); TOTAL PROTEIN 5.4 g/dL (6.4-8.2)
[2018-04-15] MEDS: CARVEDILOL 12.5 MG TABLET PO SCH ×2 (08:00→17:00)
[2018-04-15] MEDS: ASPIRIN 81 MG TAB.CHEW PO SCH (08:00)
[2018-04-15] MEDS: TAMSULOSIN 0.4 MG CAP.ER.24H. PO SCH (09:00)
[2018-04-15] MEDS: LACTOBACILLUS RHAMNOSUS GG 1 CAPSULE. PO SCH ×2 (09:00→21:00)
[2018-04-15] MEDS: CLOTRIMAZOLE/BETAMETH 1%-0.05% TOPICAL CREAM 15GM TUBE. TP SCH ×2 (09:00→21:00)
[2018-04-15] MEDS: AA 3%/ELECTROLYTE-TPN SOLN/GLY 1,000 ML IV SCH (14:12)
--- NOTE | 2018-04-15 18:44 | PDOC ---
Exam Note: Mark Note: Please also refer to the separate dictated note~for this date of service dictated separately.~Patient seen individually. Discussed the patient with Nursing staff reviewed the chart.~Reviewed interim history and current functioning. Reviewed vital signs,~Labs/ Radiology~and current medications noted below. Continue current treatment with the changes noted in the dictated addendum note Assessment: Vital Signs: Vital Signs Date Time Temp Pulse Resp B/P (MAP) Pulse Ox O2 Delivery O2 Flow Rate FiO2 04/15/18 08:00 Room Air 04/15/18 05:25 98.4 76 18 140/62 (88) 94 04/12/18 05:49 3.0 I&O Intake and Output 04/15/18 07:00 Intake Total 1431 ml Output Total 600 ml Balance 831 ml Intake Oral 0 ml IV Total 1431 ml Output Urine Total 600 ml # Voids 3 Labs: Laboratory Tests Test 04/14/18 20:29 04/15/18 05:10 04/15/18 15:43 Glucose (Fingerstick) 238 mg/dL (70-99) H 242 mg/dL (70-99) H Prothrombin Time 27.4 SEC (9.4-11.4) H Prothrombin Time INR 2.7 (0.9-1.1) H Sodium Level 142 mmol/L (136-145) Potassium Level 4.1 mmol/L (3.5-5.1) Chloride Level 106 mmol/L (98-107) Carbon Dioxide Level 31 mmol/L (21-32) Anion Gap 5 (6-14) L Blood Urea Nitrogen 28 mg/dL (8-26) H Creatinine 1.2 mg/dL (0.7-1.3) Estimated GFR (Cockcroft-Gault) 58.4 BUN/Creatinine Ratio 23 (6-20) H Glucose Level 172 mg/dL (70-99) H Calcium Level 8.6 mg/dL (8.5-10.1) Total Bilirubin 1.2 mg/dL (0.2-1.0) H Aspartate Amino Transferase (AST) 78 U/L (15-37) H Alanine Aminotransferase (ALT) 168 U/L (16-63) H Alkaline Phosphatase 98 U/L (46-116) Total Protein 5.4 g/dL (6.4-8.2) L Albumin 2.0 g/dL (3.4-5.0) L Albumin/Globulin Ratio 0.6 (1.0-1.7) L Current Medications: Meds: Current Medications Sodium Chloride 1,000 ml @ 100 mls/hr Q10H IV Last administered on 04/12/18at 05:16; Start 04/10/18 at 11:40; Stop 04/13/18 at 03:45; Status DC Acetaminophen (Tylenol) 650 mg PRN Q6HRS PRN PO Headaches, Temp > 101.5F Last administered on 04/10/18at 17:23; Start 04/10/18 at 11:45 Al Hydroxide/Mg Hydroxide (Mylanta Plus Xs) 30 ml PRN Q3HRS PRN PO HEARTBURN / GAS; Start 04/10/18 at 11:45 Ondansetron HCl (Zofran) 4 mg PRN Q8HRS PRN IV NAUSEA/VOMITING; Start 04/10/18 at 11:45 Insulin Glargine (Lantus) 10 units DAILY SQ Last administered on 04/11/18at 08: 35; Start 04/11/18 at 09:00; Stop 04/13/18 at 09:43; Status DC Multi-Ingredient Ointment (Analgesic [place]) 1 markell PRN QID PRN TP MUSCLE PAIN; Start 04/10/18 at 13:30 Olanzapine (ZyPREXA ZYDIS) 2.5 mg PRN Q2HR PRN PO ANXIETY / AGITATION Last administered on 04/14/18at 03:13; Start 04/10/18 at 13:30; Stop 04/14/18 at 15:38 ; Status DC Aspirin (Children'S Aspirin) 81 mg DAILYWBKFT PO Last administered on at 07:26; Start 04/11/18 at 08:00 Bisacodyl (Dulcolax Supp) 10 mg PRN DAILY PRN [place] CONSTIPATION Last administered on 04/12/18at 13:46; Start 04/10/18 at 13:45 Buspirone HCl (Buspar) 5 mg BID PO Last administered on 04/14/18at 07:26; Start 04/10/18 at 21:00; Stop 04/14/18 at 15:38; Status DC Carvedilol (Coreg) 12.5 mg BIDWMEALS PO Last administered on 04/14/18at 07:26; Start 04/10/18 at 17:00 Meropenem 500 mg/ Sodium Chloride 50 ml @ 100 mls/hr Q12HR IV Last administered on 04/12/18at 10:34; Start 04/10/18 at 14:00; Stop 04/12/18 at 10:00 ; Status DC Haloperidol Lactate (Haldol) 5 mg PRN Q6HRS PRN IVP AGITATION Last administered on 04/13/18at 19:28; Start 04/10/18 at 19:15; Stop 04/14/18 at 15:38 ; Status DC Lorazepam (Ativan) 1 mg PRN Q4HRS PRN IV ANXIETY / AGITATION Last administered on 04/12/18at 01:51; Start 04/10/18 at 19:15; Stop 04/12/18 at 14:18; Status DC Lactobacillus Rhamnosus (Culturelle) 1 cap BID PO Last administered on at 09:08; Start 04/11/18 at 21:00 Betamethasone/ Clotrimazole (Lotrisone) 1 markell BID TP Last administered on at 22:36; Start 04/11/18 at 12:00 Meropenem 500 mg/ Sodium Chloride 50 ml @ 100 mls/hr Q8HRS IV Last administered on 04/15/18at 14:12; Start 04/12/18 at 15:30 Magnesium Hydroxide (Milk Of Magnesia) 2,400 mg PRN DAILY PRN PO CONSTIPATION; Start 04/12/18 at 13:15 Insulin Human Lispro (HumaLOG) 0-5 UNITS Q6H SQ ; Start 04/12/18 at 14:30 Dextrose 12.5 gm PRN Q15MIN PRN IV SEE COMMENTS; Start 04/12/18 at 14:30 Amino Acids/ Glycerin/ Electrolytes 1,000 ml @ 75 mls/hr [id number] IV Last administered on 04/15/18at 14:12; Start 04/12/18 at 15:00 Diclofenac Sodium (Voltaren) 1 markell DAILY TP ; Start 04/13/18 at 09:00; Stop at 09:00; Status DC Diclofenac Sodium (Voltaren) 1 markell DAILY TP Last administered on 5/25/18at 10: 37; Start 04/12/18 at 20:30 Tamsulosin HCl (Flomax) 0.4 mg DAILY PO Last administered on 04/14/18at 08:52; Start 04/13/18 at 10:00 Active Scripts Active Reported Zoloft (Sertraline Hcl) 25 Mg Tablet 1 Tab PO DAILY Zyprexa Zydis (Olanzapine) 5 Mg Tab.rapdis 2.5 Mg PO Q2HR PRN Analgesic [place] (Methyl Salicylate/Menthol) 28 Gm Oint...g. 1 Gm TP QID PRN Milk Of Magnesia (Magnesium Hydroxide) 2,400 Mg/10 Ml Oral.susp 2,400 Mg PO HS PRN Mag-Al Plus Suspension (Mag Hydrox/Al Hydrox/Simeth) 30 Ml Oral.susp 15 Ml PO PRN AFTMEAL PRN Bisacodyl 10 Mg Supp.rect 10 Mg RC PRN DAILY PRN Lantus Solostar (Insulin Glargine,Hum.rec.anlog) 100 Unit/1 Ml Insuln.pen 10 Unit SQ DAILY Buspirone Hcl 5 Mg Tablet 5 Mg PO BID Fish Oil 1,200 mg Softgel ([place]-3S/Dha/Epa/Fish Oil) 1 Each Capsule.dr 1 Each PO QHS Carvedilol 25 Mg Tablet 12.5 Mg PO BIDWMEALS Centrum Silver Tablet (Multivits-Min/Fa/Lycopene/Lut) 1 Each Tablet 1 Each PO DAILY Aspirin 81 Mg Tab.chew 81 Mg PO DAILY Glimepiride 4 Mg Tablet 4 Mg PO DAILY I have reviewed the current psychotropics carefully including drug interactions. Risk benefit ratio favors no change other than as noted in my dictated progress note. Diagnosis: Problems: (1) Impulse control disorder (2) Dementia, vascular, with depression (3) Dementia, vascular, with delusions (4) Dementia in Alzheimer's disease with depression (5) Dementia in Alzheimer's disease with delusions (6) Anxiety disorder HERIBERTO TIMMONS MD April 15, 2018 18:44
[2018-04-15 19:40] VITALS: BP 87/56
[2018-04-16] MEDS ORDERED: OLANZapine IM 10 MG VIAL. IM ONE ×2
[2018-04-16] MEDS: INSULIN LISPRO 300 UNITS/3 ML INSULN.PEN. SQ SCH ×4 (02:30→20:30)
[2018-04-16] MEDS: AA 3%/ELECTROLYTE-TPN SOLN/GLY 1,000 ML IV SCH ×3 (04:14→19:37)
[2018-04-16] MEDS: MEROPENEM 500 MG in IV NORMAL SALINE 50ML 50 ML IV SCH ×3 (05:47→21:26)
[2018-04-16 06:26] VITALS: BP 76/46
[2018-04-16] MEDS: CARVEDILOL 12.5 MG TABLET PO SCH ×2 (08:00→17:00)
[2018-04-16] MEDS: ASPIRIN 81 MG TAB.CHEW PO SCH (08:00)
[2018-04-16] MEDS: TAMSULOSIN 0.4 MG CAP.ER.24H. PO SCH (09:00)
[2018-04-16] MEDS: DICLOFENAC SODIUM 1% TOPICAL GEL 100GM TUBE. TP SCH (09:00)
[2018-04-16] MEDS: CLOTRIMAZOLE/BETAMETH 1%-0.05% TOPICAL CREAM 15GM TUBE. TP SCH ×2 (09:00→21:00)
[2018-04-16] MEDS: LACTOBACILLUS RHAMNOSUS GG 1 CAPSULE. PO SCH ×2 (09:00→20:32)
[2018-04-16 11:02] VITALS: BP 109/72
[2018-04-16 15:27] VITALS: BP 114/69
--- NOTE | 2018-04-16 18:14 | PN ---
DATE: 04/14/2018 This is a late entry for 04/14/2018 and covers the elements not covered in my initial note of 04/14/2018. SUBJECTIVE: Discussed with nursing staff, reviewed the chart. Overall, the patient remains confused, somewhat sedated. I met with the patient's son and [id number] at some length. Dr. Colón has stopped all psychotropics given his sedation after he failed a swallow test and a swallow study would be repeated on 04/15/2018. He remains confused, intermittently agitated. MENTAL STATUS EXAM: Oriented to himself. Insight, judgment, recent and remote memory, attention, concentration, fund of knowledge poor, consistent with his diagnosis mentioned in my initial note. PLAN: Keep the patient off all psychotropics for now and we will reassess on 04/15/2018. MAN Hill TIMMONS MD DR: BRY/kitty JOB#: [id number] / [id number]
[2018-04-16 18:51] VITALS: BP 93/65
--- NOTE | 2018-04-16 20:59 | PDOC ---
Exam Note: Mark Note: Please also refer to the separate dictated note~for this date of service dictated separately.~Patient seen individually. Discussed the patient with Nursing staff reviewed the chart.~Reviewed interim history and current functioning. Reviewed vital signs,~Labs/ Radiology~and current medications noted below. Continue current treatment with the changes noted in the dictated addendum note Assessment: Vital Signs: Vital Signs Date Time Temp Pulse Resp B/P (MAP) Pulse Ox O2 Delivery O2 Flow Rate FiO2 04/16/18 18:51 98.7 112 20 93/65 (74) 96 Room Air 04/12/18 05:49 3.0 I&O Intake and Output 04/16/18 07:00 Intake Total 1828 ml Output Total 400 ml Balance 1428 ml Intake Oral 0 ml IV Total 1828 ml Output Urine Total 400 ml # Voids 3 Labs: Laboratory Tests Test 04/15/18 21:14 04/15/18 23:22 04/16/18 03:09 04/16/18 08:25 Glucose (Fingerstick) 275 mg/dL (70-99) H 255 mg/dL (70-99) H 238 mg/dL (70-99) H 231 mg/dL (70-99) H Test 04/16/18 14:37 Glucose (Fingerstick) 247 mg/dL (70-99) H Current Medications: Meds: Current Medications Sodium Chloride 1,000 ml @ 100 mls/hr Q10H IV Last administered on 04/12/18at 05:16; Start 04/10/18 at 11:40; Stop 04/13/18 at 03:45; Status DC Acetaminophen (Tylenol) 650 mg PRN Q6HRS PRN PO Headaches, Temp > 101.5F Last administered on 04/10/18at 17:23; Start 04/10/18 at 11:45 Al Hydroxide/Mg Hydroxide (Mylanta Plus Xs) 30 ml PRN Q3HRS PRN PO HEARTBURN / GAS; Start 04/10/18 at 11:45 Ondansetron HCl (Zofran) 4 mg PRN Q8HRS PRN IV NAUSEA/VOMITING; Start 04/10/18 at 11:45 Insulin Glargine (Lantus) 10 units DAILY SQ Last administered on 04/11/18at 08: 35; Start 04/11/18 at 09:00; Stop 04/13/18 at 09:43; Status DC Multi-Ingredient Ointment (Analgesic [place]) 1 markell PRN QID PRN TP MUSCLE PAIN; Start 04/10/18 at 13:30 Olanzapine (ZyPREXA ZYDIS) 2.5 mg PRN Q2HR PRN PO ANXIETY / AGITATION Last administered on 04/14/18at 03:13; Start 04/10/18 at 13:30; Stop 04/14/18 at 15:38 ; Status DC Aspirin (Children'S Aspirin) 81 mg DAILYWBKFT PO Last administered on at 07:26; Start 04/11/18 at 08:00 Bisacodyl (Dulcolax Supp) 10 mg PRN DAILY PRN [place] CONSTIPATION Last administered on 04/12/18at 13:46; Start 04/10/18 at 13:45 Buspirone HCl (Buspar) 5 mg BID PO Last administered on 04/14/18at 07:26; Start 04/10/18 at 21:00; Stop 04/14/18 at 15:38; Status DC Carvedilol (Coreg) 12.5 mg BIDWMEALS PO Last administered on 04/14/18at 07:26; Start 04/10/18 at 17:00 Meropenem 500 mg/ Sodium Chloride 50 ml @ 100 mls/hr Q12HR IV Last administered on 04/12/18at 10:34; Start 04/10/18 at 14:00; Stop 04/12/18 at 10:00 ; Status DC Haloperidol Lactate (Haldol) 5 mg PRN Q6HRS PRN IVP AGITATION Last administered on 04/13/18at 19:28; Start 04/10/18 at 19:15; Stop 04/14/18 at 15:38 ; Status DC Lorazepam (Ativan) 1 mg PRN Q4HRS PRN IV ANXIETY / AGITATION Last administered on 04/12/18at 01:51; Start 04/10/18 at 19:15; Stop 04/12/18 at 14:18; Status DC Lactobacillus Rhamnosus (Culturelle) 1 cap BID PO Last administered on at 09:08; Start 04/11/18 at 21:00 Betamethasone/ Clotrimazole (Lotrisone) 1 markell BID TP Last administered on at 21:00; Start 04/11/18 at 12:00 Meropenem 500 mg/ Sodium Chloride 50 ml @ 100 mls/hr Q8HRS IV Last administered on 04/16/18at 14:54; Start 04/12/18 at 15:30 Magnesium Hydroxide (Milk Of Magnesia) 2,400 mg PRN DAILY PRN PO CONSTIPATION; Start 04/12/18 at 13:15 Insulin Human Lispro (HumaLOG) 0-5 UNITS Q6H SQ ; Start 04/12/18 at 14:30 Dextrose 12.5 gm PRN Q15MIN PRN IV SEE COMMENTS; Start 04/12/18 at 14:30 Amino Acids/ Glycerin/ Electrolytes 1,000 ml @ 75 mls/hr [id number] IV Last administered on 04/16/18at 19:37; Start 04/12/18 at 15:00 Diclofenac Sodium (Voltaren) 1 markell DAILY TP ; Start 04/13/18 at 09:00; Stop at 09:00; Status DC Diclofenac Sodium (Voltaren) 1 markell DAILY TP Last administered on 04/14/18at 10: 37; Start 04/12/18 at 20:30 Tamsulosin HCl (Flomax) 0.4 mg DAILY PO Last administered on 04/14/18at 08:52; Start 04/13/18 at 10:00 Olanzapine (ZyPREXA IM) 10 mg 1X ONCE IM ; Start 04/16/18 at 00:00; Stop at 00:01; Status Cancel Olanzapine (ZyPREXA IM) 5 mg 1X ONCE IM Last administered on 04/16/18at 00:11; Start 04/16/18 at 00:00; Stop 04/16/18 at 00:01; Status DC Active Scripts Active Reported Zoloft (Sertraline Hcl) 25 Mg Tablet 1 Tab PO DAILY Zyprexa Zydis (Olanzapine) 5 Mg Tab.rapdis 2.5 Mg PO Q2HR PRN Analgesic [place] (Methyl Salicylate/Menthol) 28 Gm Oint...g. 1 Gm TP QID PRN Milk Of Magnesia (Magnesium Hydroxide) 2,400 Mg/10 Ml Oral.susp 2,400 Mg PO HS PRN Mag-Al Plus Suspension (Mag Hydrox/Al Hydrox/Simeth) 30 Ml Oral.susp 15 Ml PO PRN AFTMEAL PRN Bisacodyl 10 Mg Supp.rect 10 Mg RC PRN DAILY PRN Lantus Solostar (Insulin Glargine,Hum.rec.anlog) 100 Unit/1 Ml Insuln.pen 10 Unit SQ DAILY Buspirone Hcl 5 Mg Tablet 5 Mg PO BID Fish Oil 1,200 mg Softgel ([place]-3S/Dha/Epa/Fish Oil) 1 Each Capsule.dr 1 Each PO QHS Carvedilol 25 Mg Tablet 12.5 Mg PO BIDWMEALS Centrum Silver Tablet (Multivits-Min/Fa/Lycopene/Lut) 1 Each Tablet 1 Each PO DAILY Aspirin 81 Mg Tab.chew 81 Mg PO DAILY Glimepiride 4 Mg Tablet 4 Mg PO DAILY I have reviewed the current psychotropics carefully including drug interactions. Risk benefit ratio favors no change other than as noted in my dictated progress note. Diagnosis: Problems: (1) Impulse control disorder (2) Dementia, vascular, with depression (3) Dementia, vascular, with delusions (4) Dementia in Alzheimer's disease with depression (5) Dementia in Alzheimer's disease with delusions (6) Anxiety disorder HERIBERTO TIMMONS MD April 16, 2018 20:58
[2018-04-17] MEDS: INSULIN LISPRO 300 UNITS/3 ML INSULN.PEN. SQ SCH ×4 (01:53→20:06)
[2018-04-17] MEDS: AA 3%/ELECTROLYTE-TPN SOLN/GLY 1,000 ML IV SCH ×2 (02:51→11:30)
[2018-04-17] MEDS: MEROPENEM 500 MG in IV NORMAL SALINE 50ML 50 ML IV SCH ×2 (06:04→18:15)
[2018-04-17 06:19] VITALS: BP 108/69
[2018-04-17 06:38] LABS: HEMATOCRIT 43.2 % (39.0-53.0); HEMOGLOBIN 14.4 g/dL (13.0-17.5); RED BLOOD COUNT 5.09 x10^6/uL (4.30-5.70); RED CELL DISTRIBUTION WIDTH 14.3 % (11.5-14.5); WHITE BLOOD COUNT 8.3 x10^3/uL (4.0-11.0)
[2018-04-17 06:49] LABS: ALBUMIN/GLOBULIN RATIO 0.5 (1.0-1.7); CALCIUM 8.3 mg/dL (8.5-10.1); CREATININE 1.2 mg/dL (0.7-1.3); GFR 58.4; POTASSIUM 3.9 mmol/L (3.5-5.1); TOTAL BILIRUBIN 1.2 mg/dL (0.2-1.0); TOTAL PROTEIN 5.8 g/dL (6.4-8.2)
[2018-04-17] MEDS: CARVEDILOL 12.5 MG TABLET PO SCH ×2 (08:00→13:42)
[2018-04-17] MEDS: ASPIRIN 81 MG TAB.CHEW PO SCH (08:00)
[2018-04-17] MEDS: LACTOBACILLUS RHAMNOSUS GG 1 CAPSULE. PO SCH ×2 (08:47→20:07)
[2018-04-17] MEDS: TAMSULOSIN 0.4 MG CAP.ER.24H. PO SCH (08:47)
[2018-04-17] MEDS: CLOTRIMAZOLE/BETAMETH 1%-0.05% TOPICAL CREAM 15GM TUBE. TP SCH (09:00)
[2018-04-17] MEDS: DICLOFENAC SODIUM 1% TOPICAL GEL 100GM TUBE. TP SCH (09:00)
--- NOTE | 2018-04-17 10:39 | PN ---
DATE: 04/16/2018 SUBJECTIVE: The patient is resting, slightly propped up in bed, in no apparent respiratory distress. He is extremely confused, agitated, combative. Last night, he was given 5 mg of Zyprexa, although he is more awake today. He continues to be very restless, agitated. Telling me to get all this women out of his room, otherwise he will put them in skilled nursing. He has camera in his pocket that records all what happens. He was seen yesterday by the speech therapy and unfortunately he has clearly failed his bedside swallowing evaluation as he was aspirating and she recommended that he should be kept n.p.o. PHYSICAL EXAMINATION: GENERAL: When I saw him today, he was resting, slightly propped up in bed, in no apparent respiratory distress. He has recurrent bouts of cough. He is somewhat pale, but not jaundice, cyanosis, thyromegaly. No jugular venous distension. No limb edema. VITAL SIGNS: His heart rate was 110, blood pressure was 109/72, temperature was 98.6, respiratory rate was 19 and oxygen saturation was 95%. HEAD, EYES, EARS, NOSE AND THROAT: Showed normocephalic, atraumatic. NECK: Supple. HEART: Showed normal first and second sounds. No gallop, rub or murmur. CHEST: Clear to auscultation. No crepitation or rhonchi. ABDOMEN: Distended, soft, nontender. NEUROLOGIC: He is awake, alert, but very confused. All his cranial nerves are intact. He moves upper extremities to much good extent than lower extremities, mostly bed bound. His intake over the last 24 hours was 1828, output was 400. LABORATORY DATA: His serum sodium 142, potassium 4.1, chloride 106, bicarbonate 31, anion gap of 5, BUN 28, creatinine 1.2, estimated GFR was 58 mL per minute. His glucose was 172, calcium was 8.6. Total bilirubin, AST, ALT slightly elevated. Alkaline phosphatase was normal. Total protein was 5.4, albumin 2. ASSESSMENT: 1. Major neurocognitive disorder, Alzheimer, vascular with delusion, depression, behavioral disturbance. The patient is sundowning. He continued to be very restless, agitated at night time, requiring sedation, makes him very sleepy during the daytime. 2. Acute kidney injury, resolved. His serum creatinine is down from 2.4-1.2. 3. Hyperkalemia, resolved. His most recent serum potassium is down to 3.5. 4. Acute transaminitis, resolved. 5. Leukocytosis, although his white cell count came down from 15,000-7000. 6. CT scan of the head showed that he has pansinusitis, some old injuries. His blood culture grew more than 100,000 colony forming units per mL of Serratia marcescens sensitive to imipenem and ertapenem. 7. The patient has multiple medical problems including: a. Hypertension. b. Type 2 diabetes. c. Hyperlipidemia. d. Coronary artery disease, status post myocardial infarction. e. Atrial fibrillation, rate controlled. He is well anticoagulated. His INR is still within therapeutic range. 8.Continued to have dysphagia and failed his swallowing evaluation yesterday. I have spoken with the family about options available including placement of feeding tube and/or palliative and hospice care, I do not think they are interested in palliative care, but they have not made up their mind about the aggressive approach and placement of feeding tube. MIHSEL CARRILLO MD DR: MAVERICK/kitty JOB#: [id number] / [id number]
--- NOTE | 2018-04-17 19:58 | PDOC ---
Exam Note: Mark Note: Please also refer to the separate dictated note~for this date of service dictated separately.~Patient seen individually. Discussed the patient with Nursing staff reviewed the chart.~Reviewed interim history and current functioning. Reviewed vital signs,~Labs/ Radiology~and current medications noted below. Continue current treatment with the changes noted in the dictated addendum note Assessment: Vital Signs: Vital Signs Date Time Temp Pulse Resp B/P (MAP) Pulse Ox O2 Delivery O2 Flow Rate FiO2 04/17/18 19:12 98.2 04/17/18 13:42 103 118/64 04/17/18 08:00 Room Air 04/17/18 06:19 18 94 04/12/18 05:49 3.0 I&O Intake and Output 04/17/18 07:00 Intake Total 913.85 ml Output Total 950 ml Balance -36.15 ml IV Total 913.85 ml Output Urine Total 950 ml # Bowel Movements 4 Labs: Laboratory Tests Test 04/17/18 01:18 04/17/18 05:53 04/17/18 08:31 04/17/18 17:01 Glucose (Fingerstick) 253 mg/dL (70-99) H 215 mg/dL (70-99) H 242 mg/dL (70-99) H White Blood Count 8.3 x10^3/uL (4.0-11.0) Red Blood Count 5.09 x10^6/uL (4.30-5.70) Hemoglobin 14.4 g/dL (13.0-17.5) Hematocrit 43.2 % (39.0-53.0) Mean Corpuscular Volume 85 fL (79-100) Mean Corpuscular Hemoglobin 28 pg (25-35) Mean Corpuscular Hemoglobin Concent 33 g/dL (31-37) Red Cell Distribution Width 14.3 % (11.5-14.5) Platelet Count 230 x10^3/uL (140-400) Prothrombin Time 29.0 SEC (9.4-11.4) H Prothrombin Time INR 2.9 (0.9-1.1) H Sodium Level 138 mmol/L (136-145) Potassium Level 3.9 mmol/L (3.5-5.1) Chloride Level 103 mmol/L (98-107) Carbon Dioxide Level 29 mmol/L (21-32) Anion Gap 6 (6-14) Blood Urea Nitrogen 25 mg/dL (8-26) Creatinine 1.2 mg/dL (0.7-1.3) Estimated GFR (Cockcroft-Gault) 58.4 BUN/Creatinine Ratio 21 (6-20) H Glucose Level 220 mg/dL (70-99) H Calcium Level 8.3 mg/dL (8.5-10.1) L Total Bilirubin 1.2 mg/dL (0.2-1.0) H Aspartate Amino Transferase (AST) 64 U/L (15-37) H Alanine Aminotransferase (ALT) 127 U/L (16-63) H Alkaline Phosphatase 97 U/L (46-116) FN-Wha-W-Type Natriuretic Peptide 1600 pg/mL (0-449) H Total Protein 5.8 g/dL (6.4-8.2) L Albumin 2.0 g/dL (3.4-5.0) L Albumin/Globulin Ratio 0.5 (1.0-1.7) L Current Medications: Meds: Current Medications Sodium Chloride 1,000 ml @ 100 mls/hr Q10H IV Last administered on 04/12/18at 05:16; Start 04/10/18 at 11:40; Stop 04/13/18 at 03:45; Status DC Acetaminophen (Tylenol) 650 mg PRN Q6HRS PRN PO Headaches, Temp > 101.5F Last administered on 04/10/18at 17:23; Start 04/10/18 at 11:45 Al Hydroxide/Mg Hydroxide (Mylanta Plus Xs) 30 ml PRN Q3HRS PRN PO HEARTBURN / GAS; Start 04/10/18 at 11:45 Ondansetron HCl (Zofran) 4 mg PRN Q8HRS PRN IV NAUSEA/VOMITING; Start 04/10/18 at 11:45 Insulin Glargine (Lantus) 10 units DAILY SQ Last administered on 04/11/18at 08: 35; Start 04/11/18 at 09:00; Stop 04/13/18 at 09:43; Status DC Multi-Ingredient Ointment (Analgesic [place]) 1 markell PRN QID PRN TP MUSCLE PAIN; Start 04/10/18 at 13:30 Olanzapine (ZyPREXA ZYDIS) 2.5 mg PRN Q2HR PRN PO ANXIETY / AGITATION Last administered on 04/14/18 03:13; Start 04/10/18 at 13:30; Stop 04/14/18 at 15:38 ; Status DC Aspirin (Children'S Aspirin) 81 mg DAILYWBKFT PO Last administered on 07:26; Start 04/11/18 at 08:00 Bisacodyl (Dulcolax Supp) 10 mg PRN DAILY PRN [place] CONSTIPATION Last administered on 04/12/18at 13:46; Start 04/10/18 at 13:45 Buspirone HCl (Buspar) 5 mg BID PO Last administered on 04/14/18 07:26; Start 04/10/18 at 21:00; Stop 04/14/18 at 15:38; Status DC Carvedilol (Coreg) 12.5 mg BIDWMEALS PO Last administered on 04/14/18at 07:26; Start 04/10/18 at 17:00 Meropenem 500 mg/ Sodium Chloride 50 ml @ 100 mls/hr Q12HR IV Last administered on 04/12/18at 10:34; Start 04/10/18 at 14:00; Stop 04/12/18 at 10:00 ; Status DC Haloperidol Lactate (Haldol) 5 mg PRN Q6HRS PRN IVP AGITATION Last administered on 04/13/18at 19:28; Start 04/10/18 at 19:15; Stop 04/14/18 at 15:38 ; Status DC Lorazepam (Ativan) 1 mg PRN Q4HRS PRN IV ANXIETY / AGITATION Last administered on 04/12/18at 01:51; Start 04/10/18 at 19:15; Stop 04/12/18 at 14:18; Status DC Lactobacillus Rhamnosus (Culturelle) 1 cap BID PO Last administered on at 09:08; Start 04/11/18 at 21:00 Betamethasone/ Clotrimazole (Lotrisone) 1 markell BID TP Last administered on at 09:00; Start 04/11/18 at 12:00 Meropenem 500 mg/ Sodium Chloride 50 ml @ 100 mls/hr Q8HRS IV Last administered on 04/17/18at 18:15; Start 04/12/18 at 15:30 Magnesium Hydroxide (Milk Of Magnesia) 2,400 mg PRN DAILY PRN PO CONSTIPATION; Start 04/12/18 at 13:15 Insulin Human Lispro (HumaLOG) 0-5 UNITS Q6H SQ ; Start 04/12/18 at 14:30 Dextrose 12.5 gm PRN Q15MIN PRN IV SEE COMMENTS; Start 04/12/18 at 14:30 Amino Acids/ Glycerin/ Electrolytes 1,000 ml @ 75 mls/hr [id number] IV Last administered on 04/17/18at 11:30; Start 04/12/18 at 15:00 Diclofenac Sodium (Voltaren) 1 markell DAILY TP ; Start 04/13/18 at 09:00; Stop at 09:00; Status DC Diclofenac Sodium (Voltaren) 1 markell DAILY TP Last administered on 04/14/18at 10: 37; Start 04/12/18 at 20:30 Tamsulosin HCl (Flomax) 0.4 mg DAILY PO Last administered on 04/14/18at 08:52; Start 04/13/18 at 10:00 Olanzapine (ZyPREXA IM) 10 mg 1X ONCE IM ; Start 04/16/18 at 00:00; Stop at 00:01; Status Cancel Olanzapine (ZyPREXA IM) 5 mg 1X ONCE IM Last administered on 04/16/18at 00:11; Start 04/16/18 at 00:00; Stop 04/16/18 at 00:01; Status DC Active Scripts Active Reported Zoloft (Sertraline Hcl) 25 Mg Tablet 1 Tab PO DAILY Zyprexa Zydis (Olanzapine) 5 Mg Tab.rapdis 2.5 Mg PO Q2HR PRN Analgesic [place] (Methyl Salicylate/Menthol) 28 Gm Oint...g. 1 Gm TP QID PRN Milk Of Magnesia (Magnesium Hydroxide) 2,400 Mg/10 Ml Oral.susp 2,400 Mg PO HS PRN Mag-Al Plus Suspension (Mag Hydrox/Al Hydrox/Simeth) 30 Ml Oral.susp 15 Ml PO PRN AFTMEAL PRN Bisacodyl 10 Mg Supp.rect 10 Mg RC PRN DAILY PRN Lantus Solostar (Insulin Glargine,Hum.rec.anlog) 100 Unit/1 Ml Insuln.pen 10 Unit SQ DAILY Buspirone Hcl 5 Mg Tablet 5 Mg PO BID Fish Oil 1,200 mg Softgel ([place]-3S/Dha/Epa/Fish Oil) 1 Each Capsule.dr 1 Each PO QHS Carvedilol 25 Mg Tablet 12.5 Mg PO BIDWMEALS Centrum Silver Tablet (Multivits-Min/Fa/Lycopene/Lut) 1 Each Tablet 1 Each PO DAILY Aspirin 81 Mg Tab.chew 81 Mg PO DAILY Glimepiride 4 Mg Tablet 4 Mg PO DAILY I have reviewed the current psychotropics carefully including drug interactions. Risk benefit ratio favors no change other than as noted in my dictated progress note. Diagnosis: Problems: (1) Impulse control disorder (2) Dementia, vascular, with depression (3) Dementia, vascular, with delusions (4) Dementia in Alzheimer's disease with depression (5) Dementia in Alzheimer's disease with delusions (6) Anxiety disorder HERIBERTO TIMMONS MD April 17, 2018 19:58
[2018-04-17 20:51] VITALS: BP 146/82
--- NOTE | 2018-04-18 01:15 | PN ---
DATE: 04/15/2018 This is a late entry 04/15/2018, covers elements not covered in my initial note 04/15/2018. SUBJECTIVE: I met with the patient evening of 04/15/2018. Discussed with nursing staff, reviewed the chart. Overall, the patient has failed the swallow test again. He remains off all psychotropics and seems more awake and alert, still confused, but less agitated. REVIEW OF SYSTEMS: Positive for tiredness, impaired ambulation in ICU bed 4. MENTAL STATUS EXAM: Oriented to himself, possibly to situation. Speech has some latency, coherent. Abstraction fair, computation impaired, short term memory is impaired. As I questioned him repeatedly about different things, He was able to tell me he has 6 children. He was not exactly sure how many daughters and sons, but came fairly close. He is able to describe his son, tell me the name of his son, the name of his [id number], all of which is quite an improvement for the positive. No suicidal or homicidal ideation. Attention span short. Language function intact. IMPRESSION: Major neurocognitive disorder, Alzheimer, vascular with delusion, depression; anxiety disorder, unspecified; impulse control disorder, unspecified. Rest medical unchanged. PLAN: Keep the patient off all psychotropics and reassess in a day or so. HERIBERTO TIMMONS MD DR: BRY/kitty JOB#: [id number] / [id number]
[2018-04-18] MEDS: CLOTRIMAZOLE/BETAMETH 1%-0.05% TOPICAL CREAM 15GM TUBE. TP SCH ×3 (01:43→21:00)
[2018-04-18] MEDS: MEROPENEM 500 MG in IV NORMAL SALINE 50ML 50 ML IV SCH ×2 (01:43→06:23)
[2018-04-18] MEDS: INSULIN LISPRO 300 UNITS/3 ML INSULN.PEN. SQ SCH ×2 (02:30→08:30)
[2018-04-18] MEDS: AA 3%/ELECTROLYTE-TPN SOLN/GLY 1,000 ML IV SCH (05:31)
[2018-04-18 06:16] VITALS: BP 122/76
[2018-04-18 06:49] LABS: CALCIUM 8.4 mg/dL (8.5-10.1); CREATININE 1.3 mg/dL (0.7-1.3); GFR 53.3; POTASSIUM 3.8 mmol/L (3.5-5.1)
[2018-04-18] MEDS: ASPIRIN 81 MG TAB.CHEW PO SCH (08:00)
[2018-04-18] MEDS: CARVEDILOL 12.5 MG TABLET PO SCH (08:00)
[2018-04-18] MEDS: TAMSULOSIN 0.4 MG CAP.ER.24H. PO SCH (09:00)
[2018-04-18] MEDS: DICLOFENAC SODIUM 1% TOPICAL GEL 100GM TUBE. TP SCH (09:00)
[2018-04-18] MEDS: LACTOBACILLUS RHAMNOSUS GG 1 CAPSULE. PO SCH (09:00)
[2018-04-18] MEDS ORDERED: MORPHINE SULFATE 20 MG/ML CONC SOLUTION. SL PRN (09:30)
[2018-04-18] MEDS ORDERED: ACETAMINOPHEN 650 MG SUPP.RECT. PR PRN (09:30)
--- NOTE | 2018-04-18 10:57 | PN ---
DATE: 04/17/2018 SUBJECTIVE: The patient is resting almost flat in bed. Awake, alert, but very confused, has not slept the whole night last night and today he has not received any sedation. When I examined him, the nursing staff did not voice any concern except that he continues to refuse IV lines. PHYSICAL EXAMINATION: GENERAL: When I examined him, he looked pale, no jaundice, cyanosis, or thyromegaly. No jugular venous distension. No limb edema. VITAL SIGNS: His heart rate was 69, blood pressure was 108/69, temperature was 98, respiratory rate was 18 and oxygen saturation was 94%. HEAD, EYES, EARS, NOSE AND THROAT: Showed he is normocephalic, atraumatic. NECK: Supple. HEART: Showed normal first and second heart sounds. No gallop, rub or murmur. CHEST: Clear to auscultation. No crepitation or rhonchi. ABDOMEN: Distended, soft, nontender. No guarding or rigidity. No organomegaly. All hernial orifices intact. Bowel sounds normal. NEUROLOGIC: He is very confused but without any obvious lateralizing signs. All cranial nerves are intact. He moves extremities without difficulty, although he is mostly bed bound. He is unsteady and leans to the right side, whenever they attempt to put him at the edge of the bed and he can sometimes very combative and agitated. His intake over the last 24 hours was 1828 and output was 400. LABORATORY DATA: His lab work as of this morning showed a white cell count of 8300, hemoglobin 14.4, hematocrit 43, MCV 85 and platelet count 230,000. His chemistry showed a serum sodium 138, potassium 3.9, chloride 103, bicarbonate 29, anion gap of 6, BUN 25, creatinine 1.2, estimated GFR was 58 mL per minute. His glucose was 220, calcium was 8.3. Total bilirubin and alkaline phosphatase normal. AST, ALT are high but trending down. His total protein was 5.8, albumin 2. His prothrombin time was 29. INR of 2.9. ASSESSMENT: 1. Major neurocognitive disorder, Alzheimer, vascular with delusion, depression, behavioral disturbance. The patient is sundowning, continued to be restless, agitated at night time. In fact, he has not slept last night and neither this morning. 2. Acute kidney injury, resolved. His creatinine came down from 2.5 to 1.2. 3. Hyperkalemia, resolved. His most recent serum potassium is 3.9. 4. Acute transaminitis, resolving. 5. Leukocytosis, resolved. 6. CT scan of the head showed that he has pansinusitis, some old injuries. His blood culture has grown more than 100,000 colony forming units per mL of Serratia marcescens sensitive to imipenem and ertapenem. 7. The patient has multiple other medical problems including: A. Hypertension. B. Type 2 diabetes mellitus C. Hyperlipidemia. D. Coronary artery disease, status post myocardial infarction. E. Atrial fibrillation, rate controlled, well anticoagulated, in fact his INR continues to be supratherapeutic. 8. The patient continued to have dysphagia and failed his swallowing evaluation. I have again spoken with his today about the options available either to be aggressive and put a feeding tube or consider hospice or palliative care. MISHEL CARRILLO MD DR: MAVERICK/kitty JOB#: [id number] / [id number]
--- NOTE | 2018-04-18 18:20 | PDOC ---
Exam Note: Mark Note: Please also refer to the separate dictated note~for this date of service dictated separately.~Patient seen individually. Discussed the patient with Nursing staff reviewed the chart.~Reviewed interim history and current functioning. Reviewed vital signs,~Labs/ Radiology~and current medications noted below. Continue current treatment with the changes noted in the dictated addendum note Assessment: Vital Signs: Vital Signs Date Time Temp Pulse Resp B/P (MAP) Pulse Ox O2 Delivery O2 Flow Rate FiO2 04/18/18 08:38 Room Air 04/18/18 06:16 114 22 122/76 (91) 93 04/18/18 06:06 97.8 I&O Intake and Output 04/18/18 07:00 Intake Total 410 ml Balance 410 ml Intake Oral 0 ml IV Total 410 ml # Voids 6 # Bowel Movements 2 Labs: Laboratory Tests Test 04/17/18 20:03 04/18/18 05:44 Glucose (Fingerstick) 216 mg/dL (70-99) H Prothrombin Time 28.0 SEC (9.4-11.4) H Prothrombin Time INR 2.8 (0.9-1.1) H Sodium Level 139 mmol/L (136-145) Potassium Level 3.8 mmol/L (3.5-5.1) Chloride Level 103 mmol/L (98-107) Carbon Dioxide Level 31 mmol/L (21-32) Anion Gap 5 (6-14) L Blood Urea Nitrogen 20 mg/dL (8-26) Creatinine 1.3 mg/dL (0.7-1.3) Estimated GFR (Cockcroft-Gault) 53.3 Glucose Level 207 mg/dL (70-99) H Calcium Level 8.4 mg/dL (8.5-10.1) L Current Medications: Meds: Current Medications Sodium Chloride 1,000 ml @ 100 mls/hr Q10H IV Last administered on 04/12/18at 05:16; Start 04/10/18 at 11:40; Stop 04/13/18 at 03:45; Status DC Acetaminophen (Tylenol) 650 mg PRN Q6HRS PRN PO Headaches, Temp > 101.5F Last administered on 04/10/18at 17:23; Start 04/10/18 at 11:45; Stop 04/18/18 at 09:56 ; Status DC Al Hydroxide/Mg Hydroxide (Mylanta Plus Xs) 30 ml PRN Q3HRS PRN PO HEARTBURN / GAS; Start 04/10/18 at 11:45; Stop 04/18/18 at 09:56; Status DC Ondansetron HCl (Zofran) 4 mg PRN Q8HRS PRN IV NAUSEA/VOMITING; Start 04/10/18 at 11:45; Stop 04/18/18 at 09:56; Status DC Insulin Glargine (Lantus) 10 units DAILY SQ Last administered on 04/11/18at 08: 35; Start 04/11/18 at 09:00; Stop 04/13/18 at 09:43; Status DC Multi-Ingredient Ointment (Analgesic [place]) 1 markell PRN QID PRN TP MUSCLE PAIN; Start 04/10/18 at 13:30 Olanzapine (ZyPREXA ZYDIS) 2.5 mg PRN Q2HR PRN PO ANXIETY / AGITATION Last administered on 04/14/18at 03:13; Start 04/10/18 at 13:30; Stop 04/14/18 at 15:38 ; Status DC Aspirin (Children'S Aspirin) 81 mg DAILYWBKFT PO Last administered on at 07:26; Start 04/11/18 at 08:00; Stop 04/18/18 at 09:56; Status DC Bisacodyl (Dulcolax Supp) 10 mg PRN DAILY PRN [place] CONSTIPATION Last administered on 04/12/18at 13:46; Start 04/10/18 at 13:45 Buspirone HCl (Buspar) 5 mg BID PO Last administered on 04/14/18at 07:26; Start 04/10/18 at 21:00; Stop 04/14/18 at 15:38; Status DC Carvedilol (Coreg) 12.5 mg BIDWMEALS PO Last administered on 04/14/18at 07:26; Start 04/10/18 at 17:00; Stop 04/18/18 at 09:56; Status DC Meropenem 500 mg/ Sodium Chloride 50 ml @ 100 mls/hr Q12HR IV Last administered on 04/12/18at 10:34; Start 04/10/18 at 14:00; Stop 04/12/18 at 10:00 ; Status DC Haloperidol Lactate (Haldol) 5 mg PRN Q6HRS PRN IVP AGITATION Last administered on 04/13/18at 19:28; Start 04/10/18 at 19:15; Stop 04/14/18 at 15:38 ; Status DC Lorazepam (Ativan) 1 mg PRN Q4HRS PRN IV ANXIETY / AGITATION Last administered on 04/12/18at 01:51; Start 04/10/18 at 19:15; Stop 04/12/18 at 14:18; Status DC Lactobacillus Rhamnosus (Culturelle) 1 cap BID PO Last administered on at 09:08; Start 04/11/18 at 21:00; Stop 04/18/18 at 09:56; Status DC Betamethasone/ Clotrimazole (Lotrisone) 1 markell BID TP Last administered on at 01:43; Start 04/11/18 at 12:00 Meropenem 500 mg/ Sodium Chloride 50 ml @ 100 mls/hr Q8HRS IV Last administered on 04/18/18at 06:23; Start 04/12/18 at 15:30; Stop 04/18/18 at 09:56 ; Status DC Magnesium Hydroxide (Milk Of Magnesia) 2,400 mg PRN DAILY PRN PO CONSTIPATION; Start 04/12/18 at 13:15; Stop 04/18/18 at 09:56; Status DC Insulin Human Lispro (HumaLOG) 0-5 UNITS Q6H SQ ; Start 04/12/18 at 14:30; Stop 04/18/18 at 09:56; Status DC Dextrose 12.5 gm PRN Q15MIN PRN IV SEE COMMENTS; Start 04/12/18 at 14:30; Stop 04/18/18 at 09:56; Status DC Amino Acids/ Glycerin/ Electrolytes 1,000 ml @ 75 mls/hr [id number] IV Last administered on 04/17/18at 11:30; Start 04/12/18 at 15:00; Stop 04/18/18 at 09:56 ; Status DC Diclofenac Sodium (Voltaren) 1 markell DAILY TP ; Start 04/13/18 at 09:00; Stop at 09:00; Status DC Diclofenac Sodium (Voltaren) 1 markell DAILY TP Last administered on 04/14/18at 10: 37; Start 04/12/18 at 20:30 Tamsulosin HCl (Flomax) 0.4 mg DAILY PO Last administered on 04/14/18at 08:52; Start 04/13/18 at 10:00; Stop 04/18/18 at 09:56; Status DC Olanzapine (ZyPREXA IM) 10 mg 1X ONCE IM ; Start 04/16/18 at 00:00; Stop at 00:01; Status Cancel Olanzapine (ZyPREXA IM) 5 mg 1X ONCE IM Last administered on 04/16/18at 00:11; Start 04/16/18 at 00:00; Stop 04/16/18 at 00:01; Status DC Acetaminophen (Tylenol) 650 mg PRN Q6HRS PRN [place] PAIN / TEMP; Start 04/18/18 at 09:30 Morphine Sulfate (Roxanol Conc) 20 mg PRN Q3HRS PRN [place] PAIN; Start 04/18/18 at 09:30 Lorazepam (Ativan Intensol) 2 mg PRN Q4HRS PRN [place] ANXIETY / AGITATION; Start at 09:30 Active Scripts Active Reported Zoloft (Sertraline Hcl) 25 Mg Tablet 1 Tab PO DAILY Zyprexa Zydis (Olanzapine) 5 Mg Tab.rapdis 2.5 Mg PO Q2HR PRN Analgesic [place] (Methyl Salicylate/Menthol) 28 Gm Oint...g. 1 Gm TP QID PRN Milk Of Magnesia (Magnesium Hydroxide) 2,400 Mg/10 Ml Oral.susp 2,400 Mg PO HS PRN Mag-Al Plus Suspension (Mag Hydrox/Al Hydrox/Simeth) 30 Ml Oral.susp 15 Ml PO PRN AFTMEAL PRN Bisacodyl 10 Mg Supp.rect 10 Mg RC PRN DAILY PRN Lantus Solostar (Insulin Glargine,Hum.rec.anlog) 100 Unit/1 Ml Insuln.pen 10 Unit SQ DAILY Buspirone Hcl 5 Mg Tablet 5 Mg PO BID Fish Oil 1,200 mg Softgel ([place]-3S/Dha/Epa/Fish Oil) 1 Each Capsule.dr 1 Each PO QHS Carvedilol 25 Mg Tablet 12.5 Mg PO BIDWMEALS Centrum Silver Tablet (Multivits-Min/Fa/Lycopene/Lut) 1 Each Tablet 1 Each PO DAILY Aspirin 81 Mg Tab.chew 81 Mg PO DAILY Glimepiride 4 Mg Tablet 4 Mg PO DAILY I have reviewed the current psychotropics carefully including drug interactions. Risk benefit ratio favors no change other than as noted in my dictated progress note. Diagnosis: Problems: (1) Impulse control disorder (2) Dementia, vascular, with depression (3) Dementia, vascular, with delusions (4) Dementia in Alzheimer's disease with depression (5) Dementia in Alzheimer's disease with delusions (6) Anxiety disorder HERIBERTO TIMMONS MD April 18, 2018 18:20
[2018-04-18 19:17] VITALS: BP 91/62
[2018-04-18 22:39] VITALS: BP 126/67
[2018-04-19 00:59] VITALS: BP 114/59
[2018-04-19] MEDS: LORazepam INTENSOL 2 MG/ML BOTTLE SL PRN ×3 (01:02→06:38)
--- NOTE | 2018-04-19 04:29 | PN ---
DATE: 04/17/2018 PSYCHIATRIC PROGRESS NOTE This late entry 04/17/2018 covers elements not covered in my initial note 04/17/2018. SUBJECTIVE: I met with the patient evening of 04/17/2018. Also discussed with Dr. Colón directly. The patient continues to have significant aspiration risk and has failed the swallow test. He has been kept off all psychotropics, but the previous night, all night he was extremely agitated, restless, labile, more confused than he was during the evening of 04/16/2018 when I met with him and he was able to tell me about his family. REVIEW OF SYSTEMS: Ambulation impaired, shortness of breath. No CV, , pulmonary system symptoms on review other than above. Reliability poor. MENTAL STATUS EXAM: Oriented to himself. Insight, judgment, recent and remote memory, attention, concentration, fund of knowledge poor, consistent with his diagnosis mentioned in my initial note. PLAN: Continue current psychotropics. Nursing staff requested using something to help at night if needed. If Dr. Colón approves, will use low dose Zyprexa 2.5 mg p.r.n., maximum 2 dosages, but nursing staff will try and avoid it if possible. Family reportedly are considering hospice care versus PEG tube placement for nutrition. HERIBERTO TIMMONS MD DR: BRY/kitty JOB#: [id number] / [id number]
--- NOTE | 2018-04-19 04:39 | PN ---
DATE: 04/16/2018 PSYCHIATRIC PROGRESS NOTE This late entry 04/16/2018 covers elements not covered in my initial note of 04/16/2018. SUBJECTIVE: I met with the patient in the evening. Per nursing report, the patient remains somewhat anxious, restless, little more alert during the day. As I met with him, he was able to tell me about his family, which is an improvement. He was more coherent in his speech, certainly confused. REVIEW OF SYSTEMS: No CV, , pulmonary, eye system symptoms on review. Reliability poor. MENTAL STATUS EXAM: Oriented to himself. Insight, judgment, recent memory is impaired. Language function intact. Attention span short. Mood and affect remain somewhat labile at times. LABORATORIES: Reviewed. IMPRESSION: Unchanged from initial note. PLAN: Continue psychotropics mentioned in my initial note and the patient is staying off all psychotropics given his failed swallow study repeatedly. MAN Hill TIMMONS MD DR: BRY/kitty JOB#: [id number] / [id number]
[2018-04-19 06:43] VITALS: BP 97/67
[2018-04-19] MEDS: DICLOFENAC SODIUM 1% TOPICAL GEL 100GM TUBE. TP SCH (09:00)
[2018-04-19] MEDS: CLOTRIMAZOLE/BETAMETH 1%-0.05% TOPICAL CREAM 15GM TUBE. TP SCH (09:00)
--- NOTE | 2018-04-19 10:53 | PN ---
DATE: 04/18/2018 SUBJECTIVE: The patient is resting, slightly propped up in bed, continued to be restless, agitated. Apparently, our clinical social work therapist had a lengthy discussion with his family and they basically choose to consider hospice. They are choosing [facility] and the hospice is looking for placement in a shelter for him to be admitted there under hospice care. OBJECTIVE: GENERAL: On examining him today, he looked well and was clearly in no apparent respiratory distress. He was somewhat pale, but no jaundice, cyanosis or thyromegaly. No jugular venous distention. No limb edema. VITAL SIGNS: Her heart rate was 114, blood pressure was 122/76, temperature was 97.8, respiratory rate was 22 and oxygen saturation was 93% on room air. HEAD, EYES, EARS, NOSE AND THROAT: Showed normocephalic, atraumatic. NECK: Supple. HEART: Showed normal first and second sounds. No gallop, rub or murmur. CHEST: Clear to auscultation. No crepitation or rhonchi. ABDOMEN: Distended, soft, nontender. NEUROLOGIC: Very confused, agitated, restless, combative at times, but his cranial nerves are intact. EXTREMITIES: He moves extremities without difficulty; however, he is very extremely unsteady and unable even to sit on the edge of the bed. His intake over the last 24 hours was 900, output was 950. LABORATORY DATA: As of this morning; his serum sodium was 139, potassium 3.8, chloride 103, bicarbonate 31, anion gap of 5, BUN 20, creatinine 1.3, estimated GFR was 53 mL per minute. His glucose was 207 and calcium was 8.4. ASSESSMENT: 1. Acute kidney injury, resolved. His creatinine came down from . 2. Hyperkalemia, resolved. His most recent serum potassium is down to 3.9. 3. Acute transaminitis, resolving. 4. Leukocytosis, resolved. 5. CT scan of the head showed that he has pansinusitis, some old injuries. His blood cultures have grown more than 100,000 colony forming units per mL of Serratia marcescens sensitive to imipenem and ertapenem. 6. The patient has multiple other medical problems including: a. Hypertension. b. Type 2 diabetes mellitus. c. Hyperlipidemia. d. Coronary artery disease, status post myocardial infarction. e. Atrial fibrillation, rate controlled, well anticoagulated. 7. The patient continued to have dysphagia and failed his swallowing evaluation. 8. He has major neurocognitive disorder, Alzheimer, vascular with delusion, depression, behavioral disturbance, sundowning and the family had made the decision not to proceed with any aggressive measures and to consider hospice care. We will discharge him to a shelter to go on hospice care for end of life care once the shelter accepted him. MISHEL CARRILLO MD DR: MAVERICK/kitty JOB#: [id number] / [id number]
[2018-04-19] MEDS ORDERED: LORazepam INTENSOL 2 MG/ML BOTTLE SL PRN ×2 (11:30→11:45)
[2018-04-19] MEDS ORDERED: MORPHINE SULFATE 20 MG/ML CONC SOLUTION. SL PRN (11:30)
[2018-04-19] MEDS ORDERED: BISACODYL 10 MG SUPP.RECT PR PRN (11:30)
[2018-04-19] MEDS ORDERED: ATROPINE 1% OPHTH SOLUTION 5ML BOTTLE. SL SCH (13:00)
--- NOTE | 2018-04-19 21:00 | DS ---
DATE OF DISCHARGE: 04/19/2018 HOSPITAL COURSE: The patient is a 77-year-old male patient who was originally transferred from [facility] on account of acute kidney injury. In fact, his creatinine was 2.7, hyperkalemia, markedly impaired liver enzymes and also severe dysphagia, failing swallowing evaluation and despite improvement in all his kidney function lowering the potassium and normalization of his liver enzymes, treatment of his pansinusitis and acute urinary tract infection, the patient continued to be extremely confused, agitated, restless. He failed swallowing evaluation multiple times. We have had a lengthy discussion with the family regarding the goal of treatment and long-term management and we will give him the option of either being aggressive with placement for the extensive endoscopic gastrostomy tube and/or considering palliative and hospice care, and after multiple discussions, the family decided to consider hospice and comfort care. His pacemaker was activated and was admitted to inpatient hospice care. PHYSICAL EXAMINATION: GENERAL: On examining him today, he looked well and was clearly in no apparent respiratory distress. No pallor, jaundice, cyanosis, or thyromegaly. No jugular venous distension. No limb edema. VITAL SIGNS: His heart rate was 107, blood pressure was 97/67, temperature was 98, respiratory rate 22, and oxygen saturation was 95% on room air. HEAD, EYES, EARS, NOSE, AND THROAT: Normocephalic, atraumatic. NECK: Supple. HEART: Showed normal first and second heart sounds. No gallop, rub, or murmur. CHEST: Clear to auscultation. No crepitation or rhonchi. ABDOMEN: Distended, soft, nontender. NEUROLOGIC: He is very confused, agitated, although has no obvious lateralizing sign. LABORATORY DATA: His most recent lab work showed a serum sodium 139, potassium 3.8, chloride 103, bicarbonate 31, anion gap of 5, BUN 20, creatinine 1.3, estimated GFR was 53 mL per minute. His glucose was 207, calcium was 8.4. White cell count was 8300, hemoglobin 14, hematocrit 43, MCV 85, and platelet count 230,000. DISCHARGE MEDICATIONS: He was discharged for inpatient hospice to continue on Roxanol 20 mg per mL to take 0.25-1 mL every 2 hours as needed for pain and shortness of breath, Ativan sublingually or orally every 2 hours, scopolamine patch every 72 hours. FINAL DISCHARGE DIAGNOSES: Advanced dementia, dysphagia, recurrent aspiration pneumonia, has multiple other medical problems including coronary artery disease, status post myocardial infarction, hypertension, type 2 diabetes, hyperlipidemia, atrial fibrillation, severe dysphagia, recurrent aspiration pneumonia. MISHEL CARRILLO MD DR: MAVERICK/kitty JOB#: [id number] / [id number]
== END 2018-04-19 13:29 | disposition hospice, inpatient (51) | DRG 871 ==
LOC: ICU 10:15 → 1 SOUTH 04-19 12:22 → ICU 04-19 12:25 → UNDODISIN 04-19 13:29
PROVIDERS: ADMIT Internal Medicine; ATTEND Internal Medicine
DX: A41.9 Sepsis, unspecified organism (principal); J69.0 Pneumonitis due to inhalation of food and vomit; E43 Unspecified severe protein-calorie malnutrition; N17.9 Acute kidney failure, unspecified; E87.5 Hyperkalemia; E11.9 Type 2 diabetes mellitus without complications; F01.51 Vascular dementia, unspecified severity, with behavioral disturbance; G30.9 Alzheimer's disease, unspecified; I48.91 Unspecified atrial fibrillation; J32.4 Chronic pansinusitis; N39.0 Urinary tract infection, site not specified; F02.81 Dementia in other diseases classified elsewhere, unspecified severity, with behavioral disturbance; F05 Delirium due to known physiological condition; F63.9 Impulse disorder, unspecified; I25.10 Atherosclerotic heart disease of native coronary artery without angina pectoris; I10 Essential (primary) hypertension; E78.5 Hyperlipidemia, unspecified; F32.9 Major depressive disorder, single episode, unspecified; F41.9 Anxiety disorder, unspecified; N40.0 Benign prostatic hyperplasia without lower urinary tract symptoms; Z51.5 Encounter for palliative care; Z68.25 Body mass index [BMI] 25.0-25.9, adult; Z91.81 History of falling; Z88.0 Allergy status to penicillin; I25.2 Old myocardial infarction; Z95.1 Presence of aortocoronary bypass graft; Z95.0 Presence of cardiac pacemaker; Z88.1 Allergy status to other antibiotic agents; Z79.899 Other long term (current) drug therapy; Z79.82 Long term (current) use of aspirin; Z79.4 Long term (current) use of insulin
CPT/HCPCS: 36415; 70450; 80048; 80053; 80074; 82140; 82947; 83605; 83880; 84484; 85025; 85027; 85610; 87641; 92526; 93306; 97163; J1630; J1815; J2060; J2185; J3490; 92610; J7030

== ENCOUNTER 2018-04-19 12:02 | Inpatient (IN) | payer MEDICARE, OTHER ==
[~2018-04-19] VITALS: Ht 170.2 cm; Wt 74.8 kg
[2018-04-19 06:43] VITALS: BP 97/67
[2018-04-19] MEDS ORDERED: BISACODYL 10 MG SUPP.RECT PR PRN (14:30)
[2018-04-19] MEDS ORDERED: LORazepam INTENSOL 2 MG/ML BOTTLE SL PRN (14:30)
[2018-04-19] MEDS ORDERED: ACETAMINOPHEN 650 MG SUPP.RECT. PR PRN (14:30)
[2018-04-19] MEDS ORDERED: ATROPINE 1% OPHTH SOLUTION 5ML BOTTLE. SL PRN (14:30)
[2018-04-19] MEDS: MORPHINE SULFATE 20 MG/ML CONC SOLUTION. SL PRN ×2 (15:53→18:18)
== END 2018-04-19 22:50 | disposition expired | DRG 177 ==
LOC: 1 SOUTH 13:30
PROVIDERS: ADMIT Internal Medicine; ATTEND Internal Medicine
DX: J69.0 Pneumonitis due to inhalation of food and vomit (principal); G93.41 Metabolic encephalopathy; F03.90 Unspecified dementia, unspecified severity, without behavioral disturbance, psychotic disturbance, mood disturbance, and anxiety; I25.10 Atherosclerotic heart disease of native coronary artery without angina pectoris; I10 Essential (primary) hypertension; I48.91 Unspecified atrial fibrillation; Z51.5 Encounter for palliative care; E87.5 Hyperkalemia; E78.5 Hyperlipidemia, unspecified; Z79.01 Long term (current) use of anticoagulants; I25.2 Old myocardial infarction
CPT/HCPCS: Q5005